=== PATIENT | male | born 1970 | race Caucasian/White ===

== ENCOUNTER 2017-09-17 09:24 | Inpatient (IN) ==
[2017-09-17] MEDS ORDERED: ONDANSETRON 4 MG/2 ML VIAL IV PRN ×2 (09:59→14:00)
[2017-09-17] MEDS ORDERED: ASPIRIN 325 MG TABLET PO STA (09:59)
[2017-09-17 10:27] LABS: Basophils % 0.5 % (0.0-0.8); Eosinophils # 0.1 10*3/uL (0.0-0.87); Eosinophils % 1.8 % (0.00-10.9); Hemoglobin 7.6 GM/DL (14.0-18.0); Immature Granulocytes % 0.7 %; Immature Granulocytes Absolute 0.03 #; Lymphocytes # 0.7 10*3/uL (1.4-4.0); Lymphocytes % 15.5 % (21.2-54.2); Mean Corpuscular HGB Conc 27.9 GM/DL (32-36); Mean Corpuscular Hemoglobin 24 PG (27-34); Mean Platelet Volume 12.4 FL (9.6-12.0); Monocytes # 0.4 10*3/uL (0.11-0.8); Monocytes % 8.5 % (1.7-12.7); Neutrophils # 3.2 10*3/uL (1.4-7.4); Platelet Count 104 T/CUMM (130-400); Red Blood Count 3.24 MC/CUMM (3.8-5.5); White Blood Count 4.3 T/CUMM (4-12)
[2017-09-17 10:29] LABS: Hematocrit 27.2 VOL% (42.0-52.0)
[2017-09-17 10:36] LABS: PT Patient Result 10.7 SECS; Partial Thromboplastin Time 22.9 SECS (0-40)
[2017-09-17 10:44] LABS: ABG Base Excess -3.6 MMOL/L (-2.5-2.5); ABG HCO3 21.3 MMOL/L (20-26); ABG Oxygen Saturation 96.2 % (95-100); ABG PCO2 30.8 MM HG (35-48); ABG PH 7.423 (7.35-7.45); ABG PO2 77.3 MM HG (80-95); ABG TCO2 18.9 MMOL/L (23-27)
[2017-09-17 10:45] LABS: Hypochromasia 1+
[2017-09-17 10:46] LABS: Giant Platelets Few; Microcytosis Slight; Platelet Estimate Decreased
[2017-09-17 10:53] LABS: Albumin 3.5 G/DL (3.4-5.0); Bilirubin,Total 1.6 MG/DL (0.2-1.0); Osmolality,Calculated 285.4 MOS/KG (273-304); Potassium 3.8 MMOL/L (3.5-5.1); Total Protein 6.5 G/DL (6.4-8.3)
[2017-09-17 11:00] LABS: Apearance,Urine CLEAR (Clear); Bacteria,Urine Occasional /HPF (Few); Bilirubin,Urine Negative (Negative); Blood, Urine Negative (Negative); Glucose,Urine (UA) 50 mg/dL (Negative); Ketones,Urine Negative (Negative); Nitrite,Urine Negative (Negative); Protein,Urine Negative; RBC,Urine <1 /HPF (0-4); Urine Color Yellow (Yellow); Urine Specific Gravity 1.003 (1.001-1.035); Urine Urobilinogen < 2.0 EU/DL (0.2-1.0)
[2017-09-17 11:08] LABS: Ferritin 5.9 ng/ml (26-388)
[2017-09-17 11:09] LABS: Barbiturates Screen,Urine Negative (Negative); Benzodiazepines Screen,Urine Negative (Negative); Cannabinoid Screen,Urine Negative (Negative); Opiate Screen,Urine Negative (Negative); Phencyclidine Screen,Urine Negative (Negative)
[2017-09-17 11:19] LABS: Folate 7.1 NG/ML (5.4-24.0)
[2017-09-17] MEDS ORDERED: FUROSEMIDE 40 MG/4 ML VIAL IV STA (11:55)
[2017-09-17] MEDS ORDERED: FUROSEMIDE 40 MG/4 ML VIAL ONE (12:42)
[2017-09-17] MEDS ORDERED: diphenhydrAMINE CAP 25 MG CAPSULE PO PRN (14:00)
[2017-09-17] MEDS ORDERED: SODIUM CHLORIDE 0.9% 1,000 ML IV PRN (14:10)
[2017-09-17] MEDS ORDERED: DEXTROSE 50% 25 GM/50 ML VIAL IV PRN (14:21)
[2017-09-17] MEDS ORDERED: GLUCAGON 1 MG VIAL IM PRN (14:21)
[2017-09-17 14:35] LABS: Risk Ratio 3.13; VLDL CHOLESTEROL 41.2 MG/DL
[2017-09-17] MEDS: PANTOPRAZOLE 40 MG TABLET PO SCH (14:41)
[2017-09-17] MEDS ORDERED: GABAPENTIN 300 MG CAPSULE PO PRN (17:17)
[2017-09-17] MEDS: INSULIN LISPRO 100 UNIT/ML SUBCUT SCH (17:32)
[2017-09-18 05:46] LABS: Basophils % 0.6 % (0.0-0.8); Eosinophils # 0.1 10*3/uL (0.0-0.87); Eosinophils % 3.5 % (0.00-10.9); Hematocrit 28.8 VOL% (42.0-52.0); Hemoglobin 8.6 GM/DL (14.0-18.0); Immature Granulocytes % 0.6 %; Immature Granulocytes Absolute 0.02 #; Lymphocytes # 0.6 10*3/uL (1.4-4.0); Lymphocytes % 20.3 % (21.2-54.2); Mean Corpuscular HGB Conc 29.9 GM/DL (32-36); Mean Corpuscular Hemoglobin 25 PG (27-34); Mean Corpuscular Volume 82.1 FL (87-102); Monocytes # 0.3 10*3/uL (0.11-0.8); Monocytes % 10.6 % (1.7-12.7); Neutrophils % 64.4 % (38.7-73.9); Platelet Count 74 T/CUMM (130-400); Red Blood Count 3.51 MC/CUMM (3.8-5.5); Red Cell Distribution Width 16.8 % (9.3-17.3); White Blood Count 3.1 T/CUMM (4-12)
[2017-09-18 05:56] LABS: Albumin 3.3 G/DL (3.4-5.0); Bilirubin,Total 1.4 MG/DL (0.2-1.0); Calcium 7.9 MG/DL (8.5-10.1); Magnesium 2.3 MG/DL (1.8-2.4); Osmolality,Calculated 280.3 MOS/KG (273-304); Potassium 3.7 MMOL/L (3.5-5.1); Total Protein 7.1 G/DL (6.4-8.3)
[2017-09-18 06:13] LABS: Albumin 3.2 G/DL (3.4-5.0); Bilirubin,Direct 0.42 MG/DL (0.0-0.20); Bilirubin,Indirect 1.1 MG/DL (0.0-1.0); Bilirubin,Total 1.5 MG/DL (0.2-1.0); Total Protein 6.3 G/DL (6.4-8.3)
[2017-09-18 06:14] LABS: Band Neutrophils 1 % (0-10); Eosinophils 5 % (0-10); Hypochromasia 2+; Lymphocytes 18 % (20-55); Microcytosis 1+; Ovalocytes Slight; Segmented Neutrophils 70 % (50-85); Stomatocytes Slight; Total Cells Counted 100
[2017-09-18 06:15] LABS: Platelet Estimate Decreased
[2017-09-18] MEDS: INSULIN LISPRO 100 UNIT/ML SUBCUT SCH ×2 (08:21→16:57)
[2017-09-18] MEDS ORDERED: LIDOCAINE 2% 5 ML VIAL ONE (09:00)
[2017-09-18] MEDS ORDERED: PROPOFOL 200 MG/20 ML VIAL IV ONE (09:00)
[2017-09-18] MEDS: PANTOPRAZOLE 40 MG TABLET PO SCH ×2 (10:41→21:07)
[2017-09-18] MEDS: FERROUS SULFATE 325 MG TABLET PO SCH (21:07)
[2017-09-19 06:12] LABS: Eosinophils # 0.1 10*3/uL (0.0-0.87); Eosinophils % 2.4 % (0.00-10.9); Hematocrit 28.7 VOL% (42.0-52.0); Hemoglobin 8.5 GM/DL (14.0-18.0); Immature Granulocytes % 0.4 %; Immature Granulocytes Absolute 0.01 #; Lymphocytes # 0.5 10*3/uL (1.4-4.0); Lymphocytes % 18.1 % (21.2-54.2); Mean Corpuscular HGB Conc 29.6 GM/DL (32-36); Mean Corpuscular Hemoglobin 24 PG (27-34); Mean Corpuscular Volume 81.1 FL (87-102); Mean Platelet Volume 12.2 FL (9.6-12.0); Monocytes # 0.3 10*3/uL (0.11-0.8); Monocytes % 10.6 % (1.7-12.7); Neutrophils # 1.7 10*3/uL (1.4-7.4); Neutrophils % 68.5 % (38.7-73.9); Platelet Count 73 T/CUMM (130-400); Red Blood Count 3.54 MC/CUMM (3.8-5.5); Red Cell Distribution Width 16.7 % (9.3-17.3); White Blood Count 2.5 T/CUMM (4-12)
[2017-09-19 06:34] LABS: Elliptocytes Few; Hypochromasia 1+
[2017-09-19 06:47] LABS: % Iron Saturation 18.7 % (18-50); Ferritin 7.3 ng/ml (26-388)
[2017-09-19 06:55] LABS: Vitamin B12 534 PG/ML (211-911)
[2017-09-19 07:34] LABS: HIV Antigen/Antibody Result Nonreactive (Nonreactive)
[2017-09-19 07:37] LABS: Hepatitis A Ab IgM Quant 0.06 Index; Hepatitis A Ab IgM Result Negative (Negative); Hepatitis B Core IgM Quant 0.17 Index; Hepatitis B Core IgM Result Negative (Negative); Hepatitis B Surface Ag Quant < 0.10 Index; Hepatitis B Surface Ag Result Negative (Negative); Hepatitis C Virus Ab Quant 0.05 Index; Hepatitis C Virus Ab Result Negative (Negative)
[2017-09-19] MEDS: MORPHINE 2 MG/1 ML SYRINGE IV PRN ×3 (08:24→22:06)
[2017-09-19] MEDS: INSULIN LISPRO 100 UNIT/ML SUBCUT SCH ×2 (08:30→16:44)
[2017-09-19 08:52] LABS: Sedimentation Rate-Westergren 11 MM/HR (0-15)
[2017-09-19 09:23] LABS: Hemoglobin A1 (Alkaline) 97.4 % (96.5-98.5); Hemoglobin A2 (Alkaline) 2.6 % (1.5-3.5)
[2017-09-19] MEDS: FERROUS SULFATE 325 MG TABLET PO SCH ×3 (13:05→22:05)
[2017-09-19] MEDS: PANTOPRAZOLE 40 MG TABLET PO SCH ×2 (13:05→22:06)
[2017-09-20] MEDS: MORPHINE 2 MG/1 ML SYRINGE IV PRN (04:50)
[2017-09-20] MEDS ORDERED: ALUM/MAG/SIMETH/LIDO VISC 1:1 30 ML BOTTLE PO ONE (04:57)
[2017-09-20 08:26] VITALS: BP 155/89
[2017-09-20] MEDS: INSULIN LISPRO 100 UNIT/ML SUBCUT SCH (08:33)
[2017-09-20] MEDS: FERROUS SULFATE 325 MG TABLET PO SCH (08:36)
[2017-09-20] MEDS: PANTOPRAZOLE 40 MG TABLET PO SCH (08:37)
[2017-09-20 11:16] LABS: EBV Nuclear Ag Antibody Positive (Negative); EBV Virus IgG Ab Positive (Negative); EBV Virus IgM Ab Negative (Negative)
[2017-09-21 17:21] LABS: Parvovirus B19 By Rapid PCR Negative; Source PLASMA
== END 2017-09-20 11:25 | disposition home or self-care (01) | DRG 812 ==
LOC: N.ED 09:24 → SUATTDRO 14:00 → N.EDINP 14:00 → N.3E 15:10
PROVIDERS: ADMIT Family Medicine; ATTEND Family Medicine

== ENCOUNTER 2018-01-22 11:27 | Inpatient (IN) ==
[2018-01-22] MEDS ORDERED: LACTATED RINGERS 1,000 ML IV STA (11:47)
[2018-01-22] MEDS ORDERED: DIPH/TET/ACEL PERT BOOSTER VACCINE 0.5 ML VIAL IM ONE (11:47)
[2018-01-22] MEDS ORDERED: cefTRIAXone 1,000 MG in SODIUM CHLORIDE 0.9% 100 ML IV STA (11:47)
[2018-01-22] MEDS ORDERED: fentaNYL 100 MCG/2 ML VIAL IV STA ×2 (11:47→14:35)
[2018-01-22] MEDS ORDERED: ONDANSETRON 4 MG/2 ML VIAL IV STA (11:47)
[2018-01-22 13:03] LABS: Basophils % 0.5 % (0.0-0.8); Eosinophils # 0.1 10*3/uL (0.0-0.87); Eosinophils % 1.9 % (0.00-10.9); Hematocrit 34.5 VOL% (42.0-52.0); Hemoglobin 10.4 GM/DL (14.0-18.0); Immature Granulocytes % 0.5 %; Immature Granulocytes Absolute 0.02 #; Lymphocytes # 0.7 10*3/uL (1.4-4.0); Lymphocytes % 18.5 % (21.2-54.2); Mean Corpuscular HGB Conc 30.1 GM/DL (32-36); Mean Corpuscular Hemoglobin 25 PG (27-34); Mean Corpuscular Volume 82.5 FL (87-102); Mean Platelet Volume 13.4 FL (9.6-12.0); Monocytes # 0.3 10*3/uL (0.11-0.8); Monocytes % 7.3 % (1.7-12.7); Neutrophils # 2.7 10*3/uL (1.4-7.4); Neutrophils % 71.3 % (38.7-73.9); Platelet Count 86 T/CUMM (130-400); Red Blood Count 4.18 MC/CUMM (3.8-5.5); Red Cell Distribution Width 15.3 % (9.3-17.3); White Blood Count 3.7 T/CUMM (4-12)
[2018-01-22 13:13] LABS: Partial Thromboplastin Time 24.7 SECS (0-40)
[2018-01-22 13:15] LABS: Albumin 3.6 G/DL (3.4-5.0); Calcium 7.9 MG/DL (8.5-10.1); Osmolality,Calculated 279.5 MOS/KG (273-304); Potassium 3.5 MMOL/L (3.5-5.1)
[2018-01-22] MEDS ORDERED: LORazepam 2 MG/1 ML VIAL IV STA (13:24)
[2018-01-22 14:01] LABS: Giant Platelets Few
[2018-01-22 14:02] LABS: Platelet Estimate Decreased
[2018-01-22] MEDS ORDERED: SILVER SULFADIAZINE 1% CREAM 25 GM TUBE TOP STA (14:34)
[2018-01-22 15:14] LABS: Apearance,Urine CLEAR (Clear); Bilirubin,Urine Negative (Negative); Blood, Urine Negative (Negative); Glucose,Urine (UA) Negative (Negative); Ketones,Urine Negative (Negative); Mucus,Urine Occasional /LPF (Occasional); Nitrite,Urine Negative (Negative); Protein,Urine Negative; RBC,Urine 12 /HPF (0-4); Urine Color Yellow (Yellow); Urine Urobilinogen < 2.0 EU/DL (0.2-1.0); WBC,Urine <1 /HPF (0-6)
[2018-01-22 15:32] LABS: Lactic Acid 1.4 MMOL/L (0.4-2.0)
[2018-01-22] MEDS ORDERED: KETOROLAC 30 MG/1 ML VIAL IV PRN (16:55)
[2018-01-22] MEDS ORDERED: MORPHINE 4 MG/1 ML VIAL IV STA (16:55)
[2018-01-22] MEDS ORDERED: ACETAMINOPHEN 325 MG TABLET PO PRN (17:35)
[2018-01-22] MEDS ORDERED: ONDANSETRON 4 MG/2 ML VIAL IV PRN (17:35)
[2018-01-22] MEDS: LACTATED RINGERS 1,000 ML IV SCH (18:15)
[2018-01-22] MEDS: MORPHINE 4 MG/1 ML VIAL IV PRN (20:32)
[2018-01-22] MEDS: DOCUSATE SODIUM 100 MG CAPSULE PO SCH (20:34)
[2018-01-23] MEDS: MORPHINE 4 MG/1 ML VIAL IV PRN ×5 (00:49→20:33)
[2018-01-23] MEDS: LACTATED RINGERS 1,000 ML IV SCH (02:40)
[2018-01-23 05:31] LABS: Basophils % 0.6 % (0.0-0.8); Eosinophils # 0.1 10*3/uL (0.0-0.87); Eosinophils % 3.5 % (0.00-10.9); Hematocrit 29.9 VOL% (42.0-52.0); Hemoglobin 8.7 GM/DL (14.0-18.0); Immature Granulocytes % 0.3 %; Immature Granulocytes Absolute 0.01 #; Lymphocytes # 0.5 10*3/uL (1.4-4.0); Lymphocytes % 14.5 % (21.2-54.2); Mean Corpuscular HGB Conc 29.1 GM/DL (32-36); Mean Corpuscular Hemoglobin 24 PG (27-34); Mean Platelet Volume 12.6 FL (9.6-12.0); Monocytes # 0.4 10*3/uL (0.11-0.8); Monocytes % 12.3 % (1.7-12.7); Neutrophils # 2.1 10*3/uL (1.4-7.4); Neutrophils % 68.8 % (38.7-73.9); Platelet Count 66 T/CUMM (130-400); Red Blood Count 3.56 MC/CUMM (3.8-5.5); Red Cell Distribution Width 15.1 % (9.3-17.3); White Blood Count 3.1 T/CUMM (4-12)
[2018-01-23 05:59] LABS: Hypochromasia 1+; Ovalocytes Slight; Platelet Estimate Decreased
[2018-01-23 06:03] LABS: Osmolality,Calculated 280.3 MOS/KG (273-304); Potassium 3.6 MMOL/L (3.5-5.1)
[2018-01-23] MEDS: DOCUSATE SODIUM 100 MG CAPSULE PO SCH ×2 (10:04→20:39)
[2018-01-23] MEDS: PANTOPRAZOLE 40 MG TABLET PO SCH (10:04)
[2018-01-23] MEDS ORDERED: TAMSULOSIN 0.4 MG CAPSULE PO SCH (21:00)
[2018-01-24] MEDS: MORPHINE 4 MG/1 ML VIAL IV PRN ×3 (00:55→13:01)
[2018-01-24 04:43] LABS: Basophils % 0.5 % (0.0-0.8); Eosinophils # 0.1 10*3/uL (0.0-0.87); Eosinophils % 3.2 % (0.00-10.9); Hematocrit 32.6 VOL% (42.0-52.0); Hemoglobin 9.8 GM/DL (14.0-18.0); Immature Granulocytes % 0.5 %; Immature Granulocytes Absolute 0.02 #; Lymphocytes # 0.9 10*3/uL (1.4-4.0); Mean Corpuscular HGB Conc 30.1 GM/DL (32-36); Mean Corpuscular Hemoglobin 25 PG (27-34); Mean Corpuscular Volume 82.5 FL (87-102); Mean Platelet Volume 12.9 FL (9.6-12.0); Monocytes # 0.4 10*3/uL (0.11-0.8); Monocytes % 9.8 % (1.7-12.7); Neutrophils # 2.6 10*3/uL (1.4-7.4); Red Blood Count 3.95 MC/CUMM (3.8-5.5); Red Cell Distribution Width 15.2 % (9.3-17.3); White Blood Count 4.1 T/CUMM (4-12)
[2018-01-24 04:45] LABS: Platelet Count 84 T/CUMM (130-400)
[2018-01-24 05:08] LABS: Platelet Estimate Adequate; Polychromasia Few
[2018-01-24 05:09] LABS: Microcytosis 1+
[2018-01-24] MEDS: DOCUSATE SODIUM 100 MG CAPSULE PO SCH (09:10)
[2018-01-24] MEDS: PANTOPRAZOLE 40 MG TABLET PO SCH (09:13)
[2018-01-24 12:07] VITALS: BP 135/80
[2018-01-24] MEDS ORDERED: SILVER SULFADIAZINE 1% CREAM 25 GM TUBE TOP SCH (13:30)
== END 2018-01-24 13:55 | disposition home health service (06) | DRG 605 ==
LOC: EDUNIT# → EDBD → N.EDINP 11:27 → N.ED 11:27 → N.3E 17:20
PROVIDERS: ADMIT Surgery; ATTEND Surgery

== ENCOUNTER 2018-03-28 11:22 | Inpatient (IN) ==
[2018-03-28 12:01] LABS: Basophils % 0.6 % (0.0-0.8); Eosinophils # 0.1 10*3/uL (0.0-0.87); Eosinophils % 1.8 % (0.00-10.9); Hematocrit 22.3 VOL% (42.0-52.0); Hemoglobin 6.6 GM/DL (14.0-18.0); Immature Granulocytes % 0.6 %; Immature Granulocytes Absolute 0.03 #; Lymphocytes # 0.8 10*3/uL (1.4-4.0); Lymphocytes % 16.5 % (21.2-54.2); Mean Corpuscular HGB Conc 29.6 GM/DL (32-36); Mean Corpuscular Hemoglobin 25 PG (27-34); Mean Corpuscular Volume 85.8 FL (87-102); Mean Platelet Volume 12.9 FL (9.6-12.0); Monocytes # 0.5 10*3/uL (0.11-0.8); Monocytes % 9.7 % (1.7-12.7); Neutrophils # 3.5 10*3/uL (1.4-7.4); Neutrophils % 70.8 % (38.7-73.9)
[2018-03-28 12:12] LABS: Platelet Count 88 T/CUMM (130-400)
[2018-03-28] MEDS ORDERED: SODIUM CHLORIDE 0.9% 1,000 ML IV STA (12:14)
[2018-03-28 12:16] LABS: PT Patient Result 10.8 SECS
[2018-03-28 12:20] LABS: Albumin 2.7 G/DL (3.4-5.0); Bilirubin,Total 1.4 MG/DL (0.2-1.0); Osmolality,Calculated 280.5 MOS/KG (273-304); Potassium 3.4 MMOL/L (3.5-5.1); Total Protein 5.9 G/DL (6.4-8.3)
[2018-03-28 12:37] LABS: Anisocytosis 1+; Hypochromasia 1+; Microcytosis 1+; Ovalocytes Slight; Platelet Estimate Decreased; Polychromasia Slight
[2018-03-28] MEDS ORDERED: SODIUM CHLORIDE 0.9% 1,000 ML IV PRN ×2 (12:45→15:13)
[2018-03-28] MEDS ORDERED: ONDANSETRON 4 MG/2 ML VIAL IV PRN (13:28)
[2018-03-28] MEDS ORDERED: diphenhydrAMINE CAP 25 MG CAPSULE PO PRN (13:28)
[2018-03-29] MEDS: MORPHINE 4 MG/1 ML VIAL IV PRN ×2 (00:54→06:00)
[2018-03-29] MEDS: SODIUM CHLORIDE 0.9% 1,000 ML IV SCH ×2 (06:43→07:28)
[2018-03-29 07:41] VITALS: BP 120/82
[2018-03-29 08:00] LABS: Basophils % 0.5 % (0.0-0.8); Hematocrit 24.1 VOL% (42.0-52.0); Hemoglobin 7.2 GM/DL (14.0-18.0); Immature Granulocytes % 0.5 %; Immature Granulocytes Absolute 0.01 #; Lymphocytes # 0.5 10*3/uL (1.4-4.0); Lymphocytes % 23.4 % (21.2-54.2); Mean Corpuscular HGB Conc 29.9 GM/DL (32-36); Mean Corpuscular Hemoglobin 26 PG (27-34); Mean Corpuscular Volume 85.5 FL (87-102); Mean Platelet Volume 13.2 FL (9.6-12.0); Monocytes # 0.2 10*3/uL (0.11-0.8); Monocytes % 10.2 % (1.7-12.7); Neutrophils # 1.3 10*3/uL (1.4-7.4); Neutrophils % 63.4 % (38.7-73.9); Red Blood Count 2.82 MC/CUMM (3.8-5.5); Red Cell Distribution Width 18.6 % (9.3-17.3)
[2018-03-29 08:07] LABS: Platelet Count 60 T/CUMM (130-400)
[2018-03-29 08:20] LABS: Albumin 2.6 G/DL (3.4-5.0); Bilirubin,Total 1.7 MG/DL (0.2-1.0); Calcium 7.2 MG/DL (8.5-10.1); Osmolality,Calculated 279.4 MOS/KG (273-304); Potassium 3.4 MMOL/L (3.5-5.1); Total Protein 5.7 G/DL (6.4-8.3)
[2018-03-29 09:05] LABS: Eosinophils 2 % (0-10); Hypochromasia 1+; Lymphocytes 22 % (20-55); Microcytosis 1+; Segmented Neutrophils 68 % (50-85); Total Cells Counted 100
[2018-03-29 09:06] LABS: Platelet Estimate Decreased; Polychromasia Slight; Stomatocytes Slight
[2018-03-29 09:07] LABS: Anisocytosis 1+
== END 2018-03-29 10:17 | disposition home or self-care (01) | DRG 394 ==
LOC: N.ED 11:22 → N.EDINP 13:28 → N.2E 14:39
PROVIDERS: ADMIT Hospitalist; ATTEND Hospitalist

== ENCOUNTER 2018-11-10 04:05 | Inpatient (IN) ==
[2018-11-10 05:22] LABS: Albumin 2.9 G/DL (3.4-5.0); Bilirubin,Total 1.3 MG/DL (0.2-1.0); Calcium 7.5 MG/DL (8.5-10.1); Osmolality,Calculated 282.5 MOS/KG (273-304); Potassium 3.4 MMOL/L (3.5-5.1); Total Protein 6.8 G/DL (6.4-8.3)
[2018-11-10] MEDS ORDERED: SODIUM CHLORIDE 0.9% 1,000 ML IV STA (05:40)
[2018-11-10 05:54] LABS: Apearance,Urine CLEAR (Clear); Bilirubin,Urine Negative (Negative); Blood, Urine Negative (Negative); Glucose,Urine (UA) 150 mg/dL (Negative); Ketones,Urine Negative (Negative); Nitrite,Urine Negative (Negative); Protein,Urine Negative; RBC,Urine <1 /HPF (0-4); Urine Color Yellow (Yellow); Urine Specific Gravity 1.004 (1.001-1.035); Urine Urobilinogen < 2.0 EU/DL (0.2-1.0); WBC,Urine <1 /HPF (0-6)
[2018-11-10 05:57] LABS: Basophils % 0.4 % (0.0-0.8); Eosinophils # 0.1 10*3/uL (0.0-0.87); Eosinophils % 3.1 % (0.00-10.9); Hemoglobin 6.5 GM/DL (14.0-18.0); Immature Granulocytes % 0.7 %; Immature Granulocytes Absolute 0.03 #; Lymphocytes % 22.2 % (21.2-54.2); Mean Corpuscular HGB Conc 27.1 GM/DL (32-36); Mean Corpuscular Hemoglobin 21 PG (27-34); Mean Corpuscular Volume 78.2 FL (87-102); Monocytes # 0.5 10*3/uL (0.11-0.8); Monocytes % 10.2 % (1.7-12.7); Neutrophils # 2.9 10*3/uL (1.4-7.4); Neutrophils % 63.4 % (38.7-73.9); Platelet Count 79 T/CUMM (130-400); Red Blood Count 3.07 MC/CUMM (3.8-5.5); White Blood Count 4.5 T/CUMM (4-12)
[2018-11-10 06:03] LABS: Hypochromasia 1+; Microcytosis 1+; Ovalocytes Slight; Platelet Estimate Decreased
[2018-11-10] MEDS ORDERED: ONDANSETRON 4 MG/2 ML VIAL ONE (06:32)
[2018-11-10] MEDS ORDERED: HYDROmorphone 2 MG/1 ML VIAL ONE (06:32)
[2018-11-10] MEDS ORDERED: HYDROmorphone 2 MG/1 ML VIAL IV STA (06:37)
[2018-11-10] MEDS ORDERED: ONDANSETRON 4 MG/2 ML VIAL IV STA (06:38)
[2018-11-10 07:01] LABS: INR 1.1; PT Patient Result 11.4 SECS; Partial Thromboplastin Time 22.6 SECS (0-40)
[2018-11-10] MEDS ORDERED: DOCUSATE SODIUM 100 MG CAPSULE PO PRN (07:33)
[2018-11-10] MEDS ORDERED: SODIUM CHLORIDE 0.9% 1,000 ML IV PRN ×2 (07:37→21:02)
[2018-11-10] MEDS: ONDANSETRON 4 MG/2 ML VIAL IV PRN ×2 (07:58→14:43)
[2018-11-10 08:24] LABS: Risk Ratio 3.93; Thyroid Stimulating Hormone 3.47 uIU/ml (0.358-3.74); VLDL CHOLESTEROL 38.8 MG/DL
[2018-11-10] MEDS: MORPHINE 4 MG/1 ML VIAL IV PRN ×3 (12:14→21:08)
[2018-11-10] MEDS: PANTOPRAZOLE 40 MG TABLET PO SCH (14:51)
[2018-11-10 15:18] LABS: Apearance,Urine CLEAR (Clear); Bilirubin,Urine Negative (Negative); Blood, Urine Negative (Negative); Glucose,Urine (UA) Negative (Negative); Ketones,Urine Negative (Negative); Nitrite,Urine Negative (Negative); Protein,Urine Negative; RBC,Urine 1 /HPF (0-4); Squamous Epithelial Cell,Urine Occasional /HPF (0-10); Urine Color Yellow (Yellow); Urine Specific Gravity > 1.060 (1.001-1.035); Urine Urobilinogen < 2.0 EU/DL (0.2-1.0); WBC,Urine <1 /HPF (0-6)
[2018-11-10] MEDS ORDERED: POLYETHYLENE GLYCOL POWDER 255 GM BOTTLE PO ONE (18:00)
[2018-11-10 20:33] LABS: Basophils % 0.3 % (0.0-0.8); Eosinophils # 0.1 10*3/uL (0.0-0.87); Eosinophils % 3.7 % (0.00-10.9); Hematocrit 20.7 VOL% (42.0-52.0); Immature Granulocytes % 0.3 %; Immature Granulocytes Absolute 0.01 #; Lymphocytes # 0.7 10*3/uL (1.4-4.0); Lymphocytes % 22.1 % (21.2-54.2); Mean Corpuscular HGB Conc 28.5 GM/DL (32-36); Mean Corpuscular Hemoglobin 23 PG (27-34); Mean Corpuscular Volume 80.9 FL (87-102); Monocytes # 0.3 10*3/uL (0.11-0.8); Monocytes % 11.4 % (1.7-12.7); Neutrophils # 1.9 10*3/uL (1.4-7.4); Neutrophils % 62.2 % (38.7-73.9); Platelet Count 54 T/CUMM (130-400); Red Blood Count 2.56 MC/CUMM (3.8-5.5); Red Cell Distribution Width 19.1 % (9.3-17.3)
[2018-11-10 20:48] LABS: Hemoglobin 5.9 GM/DL (14.0-18.0)
[2018-11-10 20:57] LABS: Hypochromasia 2+; Poikilocytosis 1+; Stomatocytes Few
[2018-11-10 20:58] LABS: Anisocytosis 1+; Platelet Estimate Decreased
[2018-11-11] MEDS: MORPHINE 4 MG/1 ML VIAL IV PRN ×5 (02:09→20:45)
[2018-11-11 05:42] LABS: Basophils % 0.9 % (0.0-0.8); Eosinophils # 0.1 10*3/uL (0.0-0.87); Eosinophils % 4.8 % (0.00-10.9); Hematocrit 23.6 VOL% (42.0-52.0); Hemoglobin 7.1 GM/DL (14.0-18.0); Immature Granulocytes % 0.9 %; Immature Granulocytes Absolute 0.02 #; Lymphocytes # 0.6 10*3/uL (1.4-4.0); Lymphocytes % 27.3 % (21.2-54.2); Mean Corpuscular HGB Conc 30.1 GM/DL (32-36); Mean Corpuscular Hemoglobin 25 PG (27-34); Mean Corpuscular Volume 81.4 FL (87-102); Monocytes # 0.2 10*3/uL (0.11-0.8); Monocytes % 10.6 % (1.7-12.7); Neutrophils # 1.3 10*3/uL (1.4-7.4); Neutrophils % 55.5 % (38.7-73.9); Platelet Count 45 T/CUMM (130-400); Red Cell Distribution Width 18.1 % (9.3-17.3); White Blood Count 2.3 T/CUMM (4-12)
[2018-11-11 05:58] LABS: Albumin 2.4 G/DL (3.4-5.0); Bilirubin,Total 1.8 MG/DL (0.2-1.0); Calcium 7.2 MG/DL (8.5-10.1); Osmolality,Calculated 279.4 MOS/KG (273-304); Potassium 3.6 MMOL/L (3.5-5.1); Total Protein 5.6 G/DL (6.4-8.3)
[2018-11-11 06:20] LABS: Eosinophils 3 % (0-10); Hypochromasia 2+; Lymphocytes 24 % (20-55); Microcytosis Slight; Ovalocytes Slight; Platelet Estimate Decreased; Segmented Neutrophils 65 % (50-85); Total Cells Counted 100
[2018-11-11] MEDS: PANTOPRAZOLE 40 MG TABLET PO SCH (10:18)
[2018-11-11] MEDS: PROPRANOLOL 10 MG TABLET PO SCH ×2 (11:50→20:46)
[2018-11-11] MEDS ORDERED: LIDOCAINE 2% 5 ML VIAL ONE (12:20)
[2018-11-11] MEDS ORDERED: PROPOFOL 200 MG/20 ML VIAL IV ONE (12:20)
[2018-11-11] MEDS ORDERED: LACTATED RINGERS 500 ML IV ONE (15:05)
[2018-11-11] MEDS ORDERED: DEXTROSE 50% 25 GM/50 ML SYRINGE IV PRN (15:09)
[2018-11-11] MEDS ORDERED: GLUCAGON 1 MG VIAL IM PRN (15:09)
[2018-11-11] MEDS ORDERED: hydrOXYzine HCL 25 MG TABLET PO SCH (18:00)
[2018-11-11] MEDS: hydrOXYzine HCL 25 MG TABLET PO PRN (18:12)
[2018-11-12] MEDS: hydrOXYzine HCL 25 MG TABLET PO PRN ×4 (00:34→22:38)
[2018-11-12] MEDS: MORPHINE 4 MG/1 ML VIAL IV PRN ×5 (00:43→20:46)
[2018-11-12 05:26] LABS: Basophils % 0.5 % (0.0-0.8); Eosinophils # 0.1 10*3/uL (0.0-0.87); Eosinophils % 3.5 % (0.00-10.9); Hematocrit 23.1 VOL% (42.0-52.0); Hemoglobin 6.7 GM/DL (14.0-18.0); Lymphocytes # 0.5 10*3/uL (1.4-4.0); Lymphocytes % 25.9 % (21.2-54.2); Mean Corpuscular Hemoglobin 24 PG (27-34); Mean Corpuscular Volume 82.5 FL (87-102); Monocytes # 0.2 10*3/uL (0.11-0.8); Neutrophils # 1.2 10*3/uL (1.4-7.4); Neutrophils % 60.1 % (38.7-73.9); Platelet Count 42 T/CUMM (130-400); Red Cell Distribution Width 18.8 % (9.3-17.3)
[2018-11-12 05:37] LABS: Albumin 2.6 G/DL (3.4-5.0); Calcium 6.9 MG/DL (8.5-10.1); Osmolality,Calculated 278.4 MOS/KG (273-304); Potassium 3.9 MMOL/L (3.5-5.1); Total Protein 5.5 G/DL (6.4-8.3)
[2018-11-12 06:42] LABS: Eosinophils 1 % (0-10); Lymphocytes 28 % (20-55); Segmented Neutrophils 64 % (50-85); Total Cells Counted 100
[2018-11-12 06:43] LABS: Anisocytosis 1+; Hypochromasia 2+; Platelet Estimate Decreased; Tear Drop Cells Few
[2018-11-12] MEDS ORDERED: LEVOFLOXACIN INJ 500 MG in PREMIX 1 EACH IV ONE (08:00)
[2018-11-12] MEDS: PANTOPRAZOLE 40 MG TABLET PO SCH (10:02)
[2018-11-12] MEDS: PROPRANOLOL 10 MG TABLET PO SCH (10:02)
[2018-11-12] MEDS ORDERED: SODIUM CHLORIDE 0.9% 1,000 ML IV PRN ×2 (10:28→11:27)
[2018-11-13] MEDS: MORPHINE 4 MG/1 ML VIAL IV PRN ×5 (00:45→22:23)
[2018-11-13] MEDS: hydrOXYzine HCL 25 MG TABLET PO PRN ×2 (04:49→22:25)
[2018-11-13 04:51] LABS: Basophils % 0.6 % (0.0-0.8); Eosinophils # 0.1 10*3/uL (0.0-0.87); Eosinophils % 2.9 % (0.00-10.9); Hematocrit 24.1 VOL% (42.0-52.0); Hemoglobin 7.1 GM/DL (14.0-18.0); Lymphocytes # 0.5 10*3/uL (1.4-4.0); Lymphocytes % 27.7 % (21.2-54.2); Mean Corpuscular HGB Conc 29.5 GM/DL (32-36); Mean Corpuscular Hemoglobin 25 PG (27-34); Mean Corpuscular Volume 83.1 FL (87-102); Monocytes # 0.2 10*3/uL (0.11-0.8); Monocytes % 9.8 % (1.7-12.7); Red Cell Distribution Width 19.4 % (9.3-17.3); White Blood Count 1.7 T/CUMM (4-12)
[2018-11-13 04:59] LABS: Albumin 2.8 G/DL (3.4-5.0); Bilirubin,Total 1.4 MG/DL (0.2-1.0); Calcium 7.3 MG/DL (8.5-10.1); Osmolality,Calculated 275.5 MOS/KG (273-304); Potassium 3.9 MMOL/L (3.5-5.1)
[2018-11-13 05:02] LABS: Platelet Count 48 T/CUMM (130-400)
[2018-11-13 05:08] LABS: % Iron Saturation 5.4 % (18-50); Ferritin 6.3 ng/ml (26-388)
[2018-11-13 06:00] LABS: Hypochromasia 1+; Platelet Estimate Decreased
[2018-11-13 06:01] LABS: Polychromasia Few
[2018-11-13] MEDS ORDERED: SODIUM CHLORIDE 0.9% 1,000 ML IV PRN (07:45)
[2018-11-13] MEDS ORDERED: HEPARIN/NACL 0.9% 2 UNITS/ML 500 ML IV ONE (07:57)
[2018-11-13] MEDS ORDERED: CALCIUM CHLORIDE 1,000 MG/10 ML VIAL IV ONE (07:57)
[2018-11-13] MEDS ORDERED: ALBUMIN 5% 12.5 GM/250 ML VIAL IV ONE (07:58)
[2018-11-13] MEDS ORDERED: NOREPINEPHRINE 4 MG/4 ML VIAL IV ONE (07:58)
[2018-11-13] MEDS: PANTOPRAZOLE 40 MG TABLET PO SCH (09:10)
[2018-11-13] MEDS ORDERED: HEPARIN 5,000 UNIT/1 ML VIAL ONE (10:00)
[2018-11-13] MEDS ORDERED: HYDROmorphone 2 MG/1 ML VIAL ONE (15:15)
[2018-11-13] MEDS: HYDROmorphone 2 MG/1 ML VIAL IV PRN ×4 (15:20→15:35)
[2018-11-13] MEDS ORDERED: MIDAZOLAM 2 MG/2 ML VIAL ONE (15:31)
[2018-11-13] MEDS ORDERED: ONDANSETRON 4 MG/2 ML VIAL IV PRN (15:31)
[2018-11-13] MEDS ORDERED: SEVOFLURANE 1 UNIT/15 MINUTE INH ONE (15:31)
[2018-11-13] MEDS ORDERED: GLYCOPYRROLATE 0.4 MG/2 ML VIAL ONE (15:32)
[2018-11-13] MEDS ORDERED: PHENYLEPHRINE 10 MG/1 ML VIAL IV ONE (15:32)
[2018-11-13] MEDS ORDERED: ONDANSETRON 4 MG/2 ML VIAL ONE (15:32)
[2018-11-13] MEDS ORDERED: ETOMIDATE 40 MG/20 ML VIAL IV ONE (15:32)
[2018-11-13] MEDS ORDERED: fentaNYL 100 MCG/2 ML VIAL ONE ×2 (15:32)
[2018-11-13] MEDS ORDERED: PHENYLEPHRINE 1 MG/10 ML SYRINGE IV ONE (15:33)
[2018-11-13] MEDS ORDERED: SODIUM CHLORIDE 0.9% 1,000 ML IV ONE (15:34)
[2018-11-13] MEDS ORDERED: NEOSTIGMINE 10 MG/10 ML VIAL ONE (15:34)
[2018-11-13] MEDS ORDERED: ROCURONIUM 100 MG/10 ML VIAL IV ONE (15:34)
[2018-11-13 16:13] LABS: Apearance,Urine CLEAR (Clear); Bilirubin,Urine Negative (Negative); Blood, Urine Small mg/dL (Negative); Glucose,Urine (UA) Negative (Negative); Ketones,Urine Negative (Negative); Mucus,Urine Occasional /LPF (Occasional); Nitrite,Urine Negative (Negative); Protein,Urine Negative; RBC,Urine 1 /HPF (0-4); Squamous Epithelial Cell,Urine Occasional /HPF (0-10); Urine Color Yellow (Yellow); Urine Specific Gravity > 1.060 (1.001-1.035); Urine Urobilinogen < 2.0 EU/DL (0.2-1.0); WBC,Urine <1 /HPF (0-6)
[2018-11-13] MEDS ORDERED: HYDROmorphone 2 MG/1 ML VIAL IV ONE (18:46)
[2018-11-13 19:18] LABS: Hematocrit 26.6 VOL% (42.0-52.0); Hemoglobin 7.7 GM/DL (14.0-18.0)
[2018-11-14] MEDS: MORPHINE 4 MG/1 ML VIAL IV PRN ×5 (04:22→22:35)
[2018-11-14 05:56] LABS: Basophils % 0.4 % (0.0-0.8); Eosinophils % 1.7 % (0.00-10.9); Hematocrit 26.6 VOL% (42.0-52.0); Hemoglobin 7.8 GM/DL (14.0-18.0); Immature Granulocytes % 0.4 %; Immature Granulocytes Absolute 0.01 #; Lymphocytes # 0.3 10*3/uL (1.4-4.0); Lymphocytes % 12.9 % (21.2-54.2); Mean Corpuscular HGB Conc 29.3 GM/DL (32-36); Mean Corpuscular Hemoglobin 25 PG (27-34); Mean Corpuscular Volume 83.9 FL (87-102); Monocytes # 0.3 10*3/uL (0.11-0.8); Monocytes % 10.4 % (1.7-12.7); Neutrophils # 1.8 10*3/uL (1.4-7.4); Neutrophils % 74.2 % (38.7-73.9); Red Blood Count 3.17 MC/CUMM (3.8-5.5); Red Cell Distribution Width 19.2 % (9.3-17.3); White Blood Count 2.4 T/CUMM (4-12)
[2018-11-14 05:57] LABS: Platelet Count 49 T/CUMM (130-400)
[2018-11-14 06:12] LABS: Albumin 2.8 G/DL (3.4-5.0); Bilirubin,Total 6.2 MG/DL (0.2-1.0); Calcium 7.4 MG/DL (8.5-10.1); Potassium 3.9 MMOL/L (3.5-5.1); Total Protein 5.8 G/DL (6.4-8.3)
[2018-11-14 06:32] LABS: Anisocytosis 2+; Hypochromasia 2+; Macrocytosis Slight; Microcytosis 1+; Ovalocytes 1+; Platelet Estimate Decreased; Target Cells 2+
[2018-11-14] MEDS ORDERED: IRON DEXTRAN 25 MG in SYRINGE 1 EACH IV ONE (08:45)
[2018-11-14] MEDS ORDERED: IRON DEXTRAN 2,000 MG in SODIUM CHLORIDE 0.9% 500 ML IV ONE (08:46)
[2018-11-14] MEDS ORDERED: diphenhydrAMINE 50 MG/1 ML VIAL IV ONE (08:48)
[2018-11-14] MEDS ORDERED: ACETAMINOPHEN 325 MG/10.15 ML UDCUP PO ONE (08:48)
[2018-11-14] MEDS: PANTOPRAZOLE 40 MG TABLET PO SCH (09:34)
[2018-11-14] MEDS: hydrOXYzine HCL 25 MG TABLET PO PRN (22:39)
[2018-11-15] MEDS: MORPHINE 4 MG/1 ML VIAL IV PRN ×6 (02:57→21:07)
[2018-11-15 05:39] LABS: Basophils % 0.5 % (0.0-0.8); Eosinophils # 0.1 10*3/uL (0.0-0.87); Eosinophils % 2.3 % (0.00-10.9); Hematocrit 26.5 VOL% (42.0-52.0); Hemoglobin 7.9 GM/DL (14.0-18.0); Immature Granulocytes % 0.5 %; Immature Granulocytes Absolute 0.01 #; Lymphocytes # 0.4 10*3/uL (1.4-4.0); Lymphocytes % 19.4 % (21.2-54.2); Mean Corpuscular HGB Conc 29.8 GM/DL (32-36); Mean Corpuscular Hemoglobin 25 PG (27-34); Mean Corpuscular Volume 84.7 FL (87-102); Monocytes # 0.2 10*3/uL (0.11-0.8); Monocytes % 10.2 % (1.7-12.7); Neutrophils # 1.5 10*3/uL (1.4-7.4); Neutrophils % 67.1 % (38.7-73.9); Red Blood Count 3.13 MC/CUMM (3.8-5.5); White Blood Count 2.2 T/CUMM (4-12)
[2018-11-15 05:41] LABS: Platelet Count 47 T/CUMM (130-400)
[2018-11-15 05:58] LABS: Hypochromasia 1+; Ovalocytes Slight
[2018-11-15 05:59] LABS: Microcytosis 1+; Platelet Estimate Decreased
[2018-11-15 06:37] LABS: Albumin 2.9 G/DL (3.4-5.0); Bilirubin,Total 5.3 MG/DL (0.2-1.0); Calcium 7.8 MG/DL (8.5-10.1); Osmolality,Calculated 272.8 MOS/KG (273-304); Potassium 3.8 MMOL/L (3.5-5.1); Total Protein 6.1 G/DL (6.4-8.3)
[2018-11-15] MEDS: hydrOXYzine HCL 25 MG TABLET PO PRN ×2 (08:22→21:05)
[2018-11-15] MEDS: PANTOPRAZOLE 40 MG TABLET PO SCH (08:22)
[2018-11-16] MEDS: MORPHINE 4 MG/1 ML VIAL IV PRN ×6 (01:16→20:23)
[2018-11-16 05:27] LABS: Basophils % 0.5 % (0.0-0.8); Eosinophils # 0.1 10*3/uL (0.0-0.87); Eosinophils % 3.7 % (0.00-10.9); Hematocrit 28.3 VOL% (42.0-52.0); Hemoglobin 8.4 GM/DL (14.0-18.0); Immature Granulocytes % 0.5 %; Immature Granulocytes Absolute 0.01 #; Lymphocytes # 0.5 10*3/uL (1.4-4.0); Lymphocytes % 20.5 % (21.2-54.2); Mean Corpuscular HGB Conc 29.7 GM/DL (32-36); Mean Corpuscular Hemoglobin 26 PG (27-34); Monocytes # 0.2 10*3/uL (0.11-0.8); Monocytes % 9.6 % (1.7-12.7); Neutrophils # 1.4 10*3/uL (1.4-7.4); Neutrophils % 65.2 % (38.7-73.9); Red Blood Count 3.29 MC/CUMM (3.8-5.5); Red Cell Distribution Width 20.2 % (9.3-17.3); White Blood Count 2.2 T/CUMM (4-12)
[2018-11-16] MEDS: hydrOXYzine HCL 25 MG TABLET PO PRN ×2 (05:30→15:57)
[2018-11-16 05:31] LABS: Platelet Count 57 T/CUMM (130-400)
[2018-11-16 05:48] LABS: Bilirubin,Total 3.8 MG/DL (0.2-1.0); Calcium 8.2 MG/DL (8.5-10.1); Potassium 3.9 MMOL/L (3.5-5.1); Total Protein 6.5 G/DL (6.4-8.3)
[2018-11-16 06:09] LABS: Hypochromasia 1+; Platelet Estimate Decreased; Polychromasia Few
[2018-11-16] MEDS: PANTOPRAZOLE 40 MG TABLET PO SCH (08:05)
[2018-11-16] MEDS ORDERED: DEXTROSE 50% 25 GM/50 ML SYRINGE IV PRN (10:32)
[2018-11-16] MEDS ORDERED: GLUCAGON 1 MG VIAL IM PRN (10:32)
[2018-11-17] MEDS: MORPHINE 4 MG/1 ML VIAL IV PRN ×10 (00:09→22:33)
[2018-11-17] MEDS: hydrOXYzine HCL 25 MG TABLET PO PRN ×4 (00:09→22:32)
[2018-11-17 05:26] LABS: Basophils % 0.5 % (0.0-0.8); Eosinophils # 0.1 10*3/uL (0.0-0.87); Hematocrit 29.1 VOL% (42.0-52.0); Hemoglobin 8.6 GM/DL (14.0-18.0); Lymphocytes # 0.4 10*3/uL (1.4-4.0); Mean Corpuscular HGB Conc 29.6 GM/DL (32-36); Mean Corpuscular Hemoglobin 25 PG (27-34); Mean Corpuscular Volume 85.8 FL (87-102); Monocytes # 0.2 10*3/uL (0.11-0.8); Monocytes % 9.5 % (1.7-12.7); Neutrophils # 1.4 10*3/uL (1.4-7.4); Platelet Count 54 T/CUMM (130-400); Red Blood Count 3.39 MC/CUMM (3.8-5.5); Red Cell Distribution Width 21.3 % (9.3-17.3)
[2018-11-17 06:04] LABS: Bilirubin,Direct 1.83 MG/DL (0.0-0.20); Bilirubin,Indirect 1.7 MG/DL (0.0-1.0); Bilirubin,Total 3.5 MG/DL (0.2-1.0); Calcium 8.5 MG/DL (8.5-10.1); Osmolality,Calculated 272.8 MOS/KG (273-304); Potassium 4.2 MMOL/L (3.5-5.1); Total Protein 6.8 G/DL (6.4-8.3)
[2018-11-17 06:15] LABS: Anisocytosis 1+; Hypochromasia Slight; Macrocytosis 1+; Microcytosis 1+; Platelet Estimate Decreased
[2018-11-17] MEDS: PANTOPRAZOLE 40 MG TABLET PO SCH (08:10)
[2018-11-17] MEDS ORDERED: PNEUMOCOCCAL VACCINE (23 VALENT) 0.5 ML VIAL IM ONE (16:41)
[2018-11-17] MEDS: SODIUM CHLORIDE 0.45% 1,000 ML IV SCH (18:35)
[2018-11-17] MEDS: ONDANSETRON 4 MG/2 ML VIAL IV PRN (23:27)
[2018-11-18 01:19] LABS: Basophils % 0.3 % (0.0-0.8); Eosinophils % 0.8 % (0.00-10.9); Hematocrit 30.3 VOL% (42.0-52.0); Hemoglobin 8.9 GM/DL (14.0-18.0); Immature Granulocytes % 0.5 %; Immature Granulocytes Absolute 0.02 #; Lymphocytes # 0.2 10*3/uL (1.4-4.0); Lymphocytes % 6.3 % (21.2-54.2); Mean Corpuscular HGB Conc 29.4 GM/DL (32-36); Mean Corpuscular Hemoglobin 26 PG (27-34); Mean Corpuscular Volume 86.8 FL (87-102); Monocytes # 0.3 10*3/uL (0.11-0.8); Neutrophils % 83.1 % (38.7-73.9); Red Blood Count 3.49 MC/CUMM (3.8-5.5); Red Cell Distribution Width 22.4 % (9.3-17.3); White Blood Count 3.7 T/CUMM (4-12)
[2018-11-18 01:21] LABS: Platelet Count 61 T/CUMM (130-400)
[2018-11-18] MEDS: MORPHINE 4 MG/1 ML VIAL IV PRN ×6 (01:27→11:38)
[2018-11-18 01:45] LABS: Albumin 2.9 G/DL (3.4-5.0); Bilirubin,Direct 3.28 MG/DL (0.0-0.20); Bilirubin,Indirect 1.2 MG/DL (0.0-1.0); Bilirubin,Total 4.5 MG/DL (0.2-1.0); Calcium 8.1 MG/DL (8.5-10.1); Osmolality,Calculated 274.8 MOS/KG (273-304); Potassium 3.9 MMOL/L (3.5-5.1); Total Protein 6.6 G/DL (6.4-8.3)
[2018-11-18 02:14] LABS: Hypochromasia 1+; Platelet Estimate Decreased; Polychromasia 1+
[2018-11-18] MEDS ORDERED: cefTRIAXone 1,000 MG in SYRINGE 1 EACH IV ONE (06:00)
[2018-11-18] MEDS ORDERED: fentaNYL 100 MCG/2 ML VIAL IV ONE (06:00)
[2018-11-18] MEDS ORDERED: MIDAZOLAM 2 MG/2 ML VIAL IV ONE (06:00)
[2018-11-18] MEDS ORDERED: DIAZEPAM 5 MG TABLET PO ONE (06:00)
[2018-11-18] MEDS: PANTOPRAZOLE 40 MG TABLET PO SCH (08:10)
[2018-11-18] MEDS: hydrOXYzine HCL 25 MG TABLET PO PRN ×2 (09:40→22:52)
[2018-11-18] MEDS ORDERED: HEPARIN/NACL 0.9% 2 UNITS/ML 2,000 ML IV ONE (11:17)
[2018-11-18] MEDS: ONDANSETRON 4 MG/2 ML VIAL IV PRN (11:38)
[2018-11-18] MEDS ORDERED: DIAZEPAM 5 MG TABLET ONE (13:27)
[2018-11-18] MEDS ORDERED: MIDAZOLAM 2 MG/2 ML VIAL ONE (13:53)
[2018-11-18] MEDS ORDERED: fentaNYL 100 MCG/2 ML VIAL ONE (13:53)
[2018-11-18] MEDS ORDERED: diphenhydrAMINE 50 MG/1 ML VIAL ONE (14:09)
[2018-11-18] MEDS ORDERED: diphenhydrAMINE 50 MG/1 ML VIAL IV ONE (14:48)
[2018-11-18] MEDS ORDERED: MORPHINE 4 MG/1 ML VIAL IV PRN ×3 (15:28→15:48)
[2018-11-18] MEDS: KETOROLAC 30 MG/1 ML VIAL IV SCH ×2 (15:44→21:03)
[2018-11-18] MEDS: methylPREDNISolone SOD SUC 125 MG/2 ML VIAL IV SCH ×2 (15:45→23:49)
[2018-11-18] MEDS: SODIUM CHLORIDE 0.45% 1,000 ML IV SCH (16:44)
[2018-11-18] MEDS: HYDROmorphone 2 MG/1 ML VIAL IV PRN ×3 (17:34→22:48)
[2018-11-19] MEDS: HYOSCYAMINE 0.125 MG TABLET PO PRN ×2 (00:35→18:08)
[2018-11-19] MEDS: KETOROLAC 30 MG/1 ML VIAL IV SCH ×3 (03:48→14:31)
[2018-11-19] MEDS: HYDROmorphone 2 MG/1 ML VIAL IV PRN ×6 (03:57→23:54)
[2018-11-19] MEDS: hydrOXYzine HCL 25 MG TABLET PO PRN ×2 (06:03→16:34)
[2018-11-19 07:24] LABS: Basophils # 0.2 10*3/uL (0.0-0.2); Basophils % 0.4 % (0.0-0.8); Hematocrit 37.2 VOL% (42.0-52.0); Immature Granulocytes % 2.8 %; Immature Granulocytes Absolute 1.24 #; Lymphocytes # 0.7 10*3/uL (1.4-4.0); Lymphocytes % 1.4 % (21.2-54.2); Mean Corpuscular HGB Conc 28.8 GM/DL (32-36); Mean Corpuscular Hemoglobin 27 PG (27-34); Mean Corpuscular Volume 92.8 FL (87-102); Monocytes # 4.3 10*3/uL (0.11-0.8); Monocytes % 9.5 % (1.7-12.7); NRBC # 0.08 10*3/uL; Neutrophils # 38.7 10*3/uL (1.4-7.4); Neutrophils % 85.9 % (38.7-73.9); Red Blood Count 4.01 MC/CUMM (3.8-5.5); Red Cell Distribution Width 25.5 % (9.3-17.3)
[2018-11-19 07:26] LABS: White Blood Count 45.1 T/CUMM (4-12)
[2018-11-19 07:27] LABS: Hemoglobin 10.7 GM/DL (14.0-18.0); Platelet Count 118 T/CUMM (130-400)
[2018-11-19 07:29] LABS: Albumin 3.2 G/DL (3.4-5.0); Bilirubin,Direct 2.82 MG/DL (0.0-0.20); Bilirubin,Indirect 1.1 MG/DL (0.0-1.0); Bilirubin,Total 3.9 MG/DL (0.2-1.0); Calcium 8.5 MG/DL (8.5-10.1); Osmolality,Calculated 275.5 MOS/KG (273-304); Potassium 5.1 MMOL/L (3.5-5.1); Total Protein 7.4 G/DL (6.4-8.3)
[2018-11-19 07:31] LABS: Band Neutrophils 8 % (0-10); Lymphocytes 1 % (20-55); Macrocytosis Slight; Platelet Estimate Decreased; Polychromasia Slight; Segmented Neutrophils 80 % (50-85); Total Cells Counted 100
[2018-11-19 07:32] LABS: Hypochromasia 1+
[2018-11-19] MEDS: PANTOPRAZOLE 40 MG TABLET PO SCH (08:17)
[2018-11-19] MEDS: methylPREDNISolone SOD SUC 125 MG/2 ML VIAL IV SCH ×3 (08:18→23:52)
[2018-11-19] MEDS: SODIUM CHLORIDE 0.9% 1,000 ML IV SCH ×2 (11:52→21:27)
[2018-11-19 13:52] LABS: Basophils % 0.4 % (0.0-0.8); Mean Corpuscular Volume 94.1 FL (87-102); Red Blood Count 3.93 MC/CUMM (3.8-5.5)
[2018-11-19 14:14] LABS: Basophils # 0.2 10*3/uL (0.0-0.2); Hemoglobin 10.5 GM/DL (14.0-18.0); Immature Granulocytes % 2.8 %; Lymphocytes # 0.7 10*3/uL (1.4-4.0); Lymphocytes % 1.4 % (21.2-54.2); Mean Corpuscular HGB Conc 28.4 GM/DL (32-36); Mean Corpuscular Hemoglobin 27 PG (27-34); Monocytes # 4.4 10*3/uL (0.11-0.8); Monocytes % 9.4 % (1.7-12.7); Neutrophils # 40.3 10*3/uL (1.4-7.4); Platelet Count 114 T/CUMM (130-400)
[2018-11-19 14:17] LABS: Calcium 8.6 MG/DL (8.5-10.1); Osmolality,Calculated 272.9 MOS/KG (273-304)
[2018-11-19 14:22] LABS: White Blood Count 46.9 T/CUMM (4-12)
[2018-11-19 14:25] LABS: Potassium 7.1 MMOL/L (3.5-5.1)
[2018-11-19] MEDS ORDERED: SODIUM BICARBONATE 50 MEQ/50 ML VIAL IV ONE (14:31)
[2018-11-19] MEDS ORDERED: DEXTROSE 50% 25 GM/50 ML SYRINGE IV ONE (14:31)
[2018-11-19] MEDS ORDERED: INSULIN REGULAR 100 UNIT/ML IV ONE (14:31)
[2018-11-19] MEDS ORDERED: CALCIUM GLUCONATE 1,000 MG in SODIUM CHLORIDE 0.9% 100 ML IV ONE (15:00)
[2018-11-19 15:56] LABS: Band Neutrophils 35 % (0-10); Lymphocytes 2 % (20-55); Nucleated Red Blood Cells 1 (0-5); Segmented Neutrophils 59 % (50-85)
[2018-11-19 15:57] LABS: Anisocytosis 2+; Polychromasia 3+
[2018-11-19 15:58] LABS: Hypochromasia Slight; Macrocytosis 2+; Microcytosis 1+
[2018-11-19 15:59] LABS: Ovalocytes Few; Platelet Estimate Normal
[2018-11-19 16:00] LABS: Total Cells Counted 100
[2018-11-20] MEDS: HYDROmorphone 2 MG/1 ML VIAL IV PRN ×8 (01:59→23:55)
[2018-11-20] MEDS: hydrOXYzine HCL 25 MG TABLET PO PRN ×3 (02:02→23:52)
[2018-11-20] MEDS: HYOSCYAMINE 0.125 MG TABLET PO PRN ×2 (02:02→20:50)
[2018-11-20] MEDS: SODIUM CHLORIDE 0.9% 1,000 ML IV SCH ×4 (04:37→18:06)
[2018-11-20 05:22] LABS: Basophils # 0.1 10*3/uL (0.0-0.2); Basophils % 0.2 % (0.0-0.8); Hematocrit 31.9 VOL% (42.0-52.0); Hemoglobin 9.4 GM/DL (14.0-18.0); Immature Granulocytes % 1.6 %; Immature Granulocytes Absolute 0.65 #; Lymphocytes # 0.7 10*3/uL (1.4-4.0); Lymphocytes % 1.7 % (21.2-54.2); Mean Corpuscular HGB Conc 29.5 GM/DL (32-36); Mean Corpuscular Hemoglobin 28 PG (27-34); Mean Corpuscular Volume 93.3 FL (87-102); Monocytes # 4.4 10*3/uL (0.11-0.8); Monocytes % 11.1 % (1.7-12.7); NRBC # 0.07 10*3/uL; Neutrophils % 85.4 % (38.7-73.9); Platelet Count 117 T/CUMM (130-400); Red Blood Count 3.42 MC/CUMM (3.8-5.5); White Blood Count 39.8 T/CUMM (4-12)
[2018-11-20 05:34] LABS: Bilirubin,Direct 4.2 MG/DL (0.0-0.20); Bilirubin,Indirect 1.2 MG/DL (0.0-1.0); Bilirubin,Total 5.4 MG/DL (0.2-1.0); Calcium 7.9 MG/DL (8.5-10.1); Osmolality,Calculated 271.9 MOS/KG (273-304); Total Protein 6.6 G/DL (6.4-8.3)
[2018-11-20] MEDS: methylPREDNISolone SOD SUC 125 MG/2 ML VIAL IV SCH (06:06)
[2018-11-20 06:31] LABS: Band Neutrophils 18 % (0-10); Lymphocytes 2 % (20-55); Metamyelocytes 2 %; Myelocytes 1 %; Segmented Neutrophils 67 % (50-85); Total Cells Counted 100
[2018-11-20 06:32] LABS: Anisocytosis 2+; Macrocytosis 2+; Ovalocytes 1+; Platelet Estimate Decreased; Polychromasia 1+
[2018-11-20] MEDS ORDERED: SODIUM BICARBONATE 50 MEQ/50 ML VIAL IV ONE (08:21)
[2018-11-20] MEDS ORDERED: INSULIN REGULAR 100 UNIT/ML IV ONE (08:21)
[2018-11-20] MEDS ORDERED: DEXTROSE 50% 25 GM/50 ML SYRINGE IV ONE (08:21)
[2018-11-20] MEDS: PANTOPRAZOLE 40 MG TABLET PO SCH (08:50)
[2018-11-20] MEDS ORDERED: CALCIUM GLUCONATE 1,000 MG in SODIUM CHLORIDE 0.9% 100 ML IV ONE (09:00)
[2018-11-20 18:23] LABS: Apearance,Urine CLEAR (Clear); Blood, Urine Negative (Negative); Glucose,Urine (UA) Negative (Negative); Hyaline Casts,Urine 22 /LPF (0-3); Ketones,Urine Negative (Negative); Mucus,Urine Few /LPF (Occasional); Nitrite,Urine Negative (Negative); Protein,Urine Negative; RBC,Urine 1 /HPF (0-4); Squamous Epithelial Cell,Urine Occasional /HPF (0-10); Urine Color Amber (Yellow); Urine Specific Gravity 1.023 (1.001-1.035); WBC,Urine 1 /HPF (0-6)
[2018-11-20 18:25] LABS: Bilirubin,Urine Small mg/dL (Negative)
[2018-11-20] MEDS: ONDANSETRON 4 MG/2 ML VIAL IV PRN ×2 (21:02→23:53)
[2018-11-20] MEDS: chlorproMAZINE 25 MG TABLET PO PRN (22:33)
[2018-11-21] MEDS: SODIUM CHLORIDE 0.9% 1,000 ML IV SCH ×3 (00:59→20:15)
[2018-11-21] MEDS: HYDROmorphone 2 MG/1 ML VIAL IV PRN ×9 (03:53→23:49)
[2018-11-21 05:29] LABS: Basophils % 0.1 % (0.0-0.8); Hematocrit 28.6 VOL% (42.0-52.0); Hemoglobin 8.6 GM/DL (14.0-18.0); Immature Granulocytes % 0.9 %; Immature Granulocytes Absolute 0.25 #; Lymphocytes # 0.5 10*3/uL (1.4-4.0); Lymphocytes % 1.8 % (21.2-54.2); Mean Corpuscular HGB Conc 30.1 GM/DL (32-36); Mean Corpuscular Hemoglobin 28 PG (27-34); Mean Corpuscular Volume 92.6 FL (87-102); Monocytes # 3.1 10*3/uL (0.11-0.8); Monocytes % 11.3 % (1.7-12.7); NRBC # 0.18 10*3/uL; Neutrophils # 23.9 10*3/uL (1.4-7.4); Neutrophils % 85.9 % (38.7-73.9); Platelet Count 146 T/CUMM (130-400); Red Blood Count 3.09 MC/CUMM (3.8-5.5); Red Cell Distribution Width 29.3 % (9.3-17.3); White Blood Count 27.8 T/CUMM (4-12)
[2018-11-21 05:38] LABS: Calcium 7.9 MG/DL (8.5-10.1); Osmolality,Calculated 276.8 MOS/KG (273-304); Potassium 5.9 MMOL/L (3.5-5.1)
[2018-11-21] MEDS: hydrOXYzine HCL 25 MG TABLET PO PRN (05:48)
[2018-11-21] MEDS: chlorproMAZINE 25 MG TABLET PO PRN ×2 (05:48→21:11)
[2018-11-21] MEDS: HYOSCYAMINE 0.125 MG TABLET PO PRN (05:49)
[2018-11-21 06:22] LABS: Band Neutrophils 11 % (0-10); Lymphocytes 3 % (20-55); Nucleated Red Blood Cells 2 (0-5); Segmented Neutrophils 77 % (50-85); Total Cells Counted 100
[2018-11-21 06:23] LABS: Anisocytosis 2+; Hypochromasia 1+; Macrocytosis 1+; Polychromasia 1+; Target Cells Slight
[2018-11-21 06:24] LABS: Platelet Estimate Decreased; Spherocytes Slight
[2018-11-21] MEDS ORDERED: DEXTROSE 50% 25 GM/50 ML SYRINGE IV ONE (08:26)
[2018-11-21] MEDS ORDERED: INSULIN REGULAR 100 UNIT/ML IV ONE (08:26)
[2018-11-21] MEDS ORDERED: CALCIUM GLUCONATE 1,000 MG in SODIUM CHLORIDE 0.9% 100 ML IV ONE (09:00)
[2018-11-21] MEDS ORDERED: SODIUM BICARBONATE 50 MEQ/50 ML VIAL IV ONE (09:00)
[2018-11-21] MEDS: PANTOPRAZOLE 40 MG TABLET PO SCH (09:12)
[2018-11-21] MEDS: oxyCODONE/ACETAMINOPHEN 5-325 MG TABLET PO PRN ×2 (16:02→22:33)
[2018-11-21] MEDS: MELATONIN 3 MG TABLET PO PRN (22:34)
[2018-11-22] MEDS: HYDROmorphone 2 MG/1 ML VIAL IV PRN ×7 (02:19→23:05)
[2018-11-22] MEDS: SODIUM CHLORIDE 0.9% 1,000 ML IV SCH ×3 (03:52→23:43)
[2018-11-22] MEDS: chlorproMAZINE 25 MG TABLET PO PRN (04:43)
[2018-11-22] MEDS: ONDANSETRON 4 MG/2 ML VIAL IV PRN ×2 (04:45→19:18)
[2018-11-22 05:45] LABS: Basophils % 0.1 % (0.0-0.8); Hematocrit 23.9 VOL% (42.0-52.0); Immature Granulocytes % 1.4 %; Immature Granulocytes Absolute 0.19 #; Lymphocytes # 0.5 10*3/uL (1.4-4.0); Lymphocytes % 3.8 % (21.2-54.2); Mean Corpuscular HGB Conc 29.3 GM/DL (32-36); Mean Corpuscular Hemoglobin 28 PG (27-34); Mean Corpuscular Volume 96.4 FL (87-102); Mean Platelet Volume 12.8 FL (9.6-12.0); Monocytes # 2.2 10*3/uL (0.11-0.8); Monocytes % 15.9 % (1.7-12.7); NRBC # 0.44 10*3/uL; Neutrophils # 10.8 10*3/uL (1.4-7.4); Neutrophils % 78.8 % (38.7-73.9); Platelet Count 148 T/CUMM (130-400); Red Blood Count 2.48 MC/CUMM (3.8-5.5); Red Cell Distribution Width 30.7 % (9.3-17.3); White Blood Count 13.7 T/CUMM (4-12)
[2018-11-22 06:18] LABS: Albumin 2.4 G/DL (3.4-5.0); Bilirubin,Direct 6.55 MG/DL (0.0-0.20); Bilirubin,Indirect 1.5 MG/DL (0.0-1.0); Calcium 7.6 MG/DL (8.5-10.1); Osmolality,Calculated 281.4 MOS/KG (273-304); Total Protein 4.7 G/DL (6.4-8.3)
[2018-11-22 06:22] LABS: Band Neutrophils 21 % (0-10); Lymphocytes 5 % (20-55); Segmented Neutrophils 68 % (50-85); Total Cells Counted 100
[2018-11-22 06:23] LABS: Anisocytosis 3+; Macrocytosis 1+; Nucleated Red Blood Cells 2 (0-5); Platelet Estimate Adequate
[2018-11-22 06:25] LABS: Basophilic Stippling Slight; Polychromasia Slight
[2018-11-22] MEDS ORDERED: SODIUM CHLORIDE 0.9% 1,000 ML IV PRN ×3 (06:34→18:49)
[2018-11-22] MEDS ORDERED: OCTREOTIDE 100 MCG/ML SYRINGE IV ONE (10:25)
[2018-11-22] MEDS: OCTREOTIDE 500 MCG in SODIUM CHLORIDE 0.9% 100 ML IV SCH ×2 (10:45→21:40)
[2018-11-22] MEDS ORDERED: LIDOCAINE 2% 20 ML VIAL ONE (11:15)
[2018-11-22 11:22] LABS: Basophils % 0.2 % (0.0-0.8); Hematocrit 23.9 VOL% (42.0-52.0); Hemoglobin 7.2 GM/DL (14.0-18.0); Immature Granulocytes % 2.2 %; Immature Granulocytes Absolute 0.37 #; Lymphocytes # 0.5 10*3/uL (1.4-4.0); Mean Corpuscular HGB Conc 30.1 GM/DL (32-36); Mean Corpuscular Hemoglobin 28 PG (27-34); Mean Corpuscular Volume 94.1 FL (87-102); Mean Platelet Volume 12.2 FL (9.6-12.0); Monocytes # 2.8 10*3/uL (0.11-0.8); Monocytes % 16.7 % (1.7-12.7); NRBC # 0.83 10*3/uL; Neutrophils # 13.1 10*3/uL (1.4-7.4); Neutrophils % 77.9 % (38.7-73.9); Platelet Count 137 T/CUMM (130-400); Red Blood Count 2.54 MC/CUMM (3.8-5.5); Red Cell Distribution Width 28.5 % (9.3-17.3); White Blood Count 16.9 T/CUMM (4-12)
[2018-11-22 11:24] LABS: INR 1.5; PT Patient Result 15.9 SECS
[2018-11-22] MEDS ORDERED: PROPOFOL 1,000 MG/100 ML BOTTLE IV ONE (11:30)
[2018-11-22 11:36] LABS: Calcium 6.9 MG/DL (8.5-10.1); Osmolality,Calculated 284.2 MOS/KG (273-304); Potassium 5.4 MMOL/L (3.5-5.1)
[2018-11-22] MEDS: PROPOFOL 1,000 MG/100 ML BOTTLE IV SCH ×2 (11:50→17:35)
[2018-11-22] MEDS: PANTOPRAZOLE 40 MG TABLET PO SCH (12:04)
[2018-11-22 12:06] LABS: Band Neutrophils 3 % (0-10); Lymphocytes 6 % (20-55); Nucleated Red Blood Cells 3 (0-5); Segmented Neutrophils 81 % (50-85); Total Cells Counted 100
[2018-11-22 12:07] LABS: Hypochromasia 2+; Microcytosis 1+; Stomatocytes Few; Target Cells Few
[2018-11-22 12:08] LABS: Anisocytosis 2+; Platelet Estimate Normal; Poikilocytosis 1+; Polychromasia 2+
[2018-11-22] MEDS ORDERED: PROPOFOL 200 MG/20 ML VIAL IV ONE (12:24)
[2018-11-22] MEDS ORDERED: MIDAZOLAM 10 MG/2 ML VIAL ONE (12:25)
[2018-11-22] MEDS ORDERED: ROCURONIUM 100 MG/10 ML VIAL IV ONE (12:25)
[2018-11-22] MEDS ORDERED: PHENYLEPHRINE 1 MG/10 ML SYRINGE IV ONE (12:25)
[2018-11-22 12:47] LABS: ABG HCO3 22.8 MMOL/L (20-26); ABG PCO2 35.5 MM HG (35-48); ABG PH 7.406 (7.35-7.45); ABG TCO2 20.9 MMOL/L (23-27); Allen Test Positive; Pt O2 Delivery Device Ventilator
[2018-11-22 14:01] LABS: Apearance,Urine CLEAR (Clear); Bilirubin,Urine Small mg/dL (Negative); Blood, Urine Small mg/dL (Negative); Glucose,Urine (UA) Negative (Negative); Hyaline Casts,Urine 11 /LPF (0-3); Ketones,Urine Negative (Negative); Mucus,Urine Few /LPF (Occasional); Nitrite,Urine Negative (Negative); Protein,Urine Negative; RBC,Urine 3 /HPF (0-4); Squamous Epithelial Cell,Urine Occasional /HPF (0-10); Urine Color Amber (Yellow); WBC,Urine 1 /HPF (0-6)
[2018-11-22 15:53] LABS: Hematocrit 21.8 VOL% (42.0-52.0); Hemoglobin 6.8 GM/DL (14.0-18.0)
[2018-11-22] MEDS ORDERED: PHENYLEPHRINE DRIP 40 MG/250 ML PREMIX IV PRN (19:54)
[2018-11-23] MEDS: PROPOFOL 1,000 MG/100 ML BOTTLE IV SCH ×3 (00:12→14:15)
[2018-11-23 06:15] LABS: Basophils % 0.4 % (0.0-0.8); Eosinophils # 0.1 10*3/uL (0.0-0.87); Eosinophils % 0.9 % (0.00-10.9); Hematocrit 27.2 VOL% (42.0-52.0); Hemoglobin 8.5 GM/DL (14.0-18.0); Immature Granulocytes % 3.8 %; Immature Granulocytes Absolute 0.42 #; Lymphocytes # 0.6 10*3/uL (1.4-4.0); Lymphocytes % 5.2 % (21.2-54.2); Mean Corpuscular HGB Conc 31.3 GM/DL (32-36); Mean Corpuscular Hemoglobin 29 PG (27-34); Mean Corpuscular Volume 93.8 FL (87-102); Mean Platelet Volume 12.7 FL (9.6-12.0); Monocytes # 1.7 10*3/uL (0.11-0.8); Monocytes % 14.9 % (1.7-12.7); NRBC # 1.18 10*3/uL; Neutrophils # 8.4 10*3/uL (1.4-7.4); Neutrophils % 74.8 % (38.7-73.9); Platelet Count 122 T/CUMM (130-400); Red Cell Distribution Width 25.7 % (9.3-17.3); White Blood Count 11.2 T/CUMM (4-12)
[2018-11-23 06:40] LABS: Bilirubin,Direct 3.7 MG/DL (0.0-0.20); Bilirubin,Indirect 1.3 MG/DL (0.0-1.0); Calcium 7.4 MG/DL (8.5-10.1); Osmolality,Calculated 283.8 MOS/KG (273-304); Potassium 4.2 MMOL/L (3.5-5.1); Total Protein 4.4 G/DL (6.4-8.3)
[2018-11-23 06:59] LABS: Band Neutrophils 2 % (0-10); Eosinophils 2 % (0-10); Hypochromasia 1+; Lymphocytes 4 % (20-55); Macrocytosis 1+; Nucleated Red Blood Cells 8 (0-5); Platelet Estimate Adequate; Polychromasia 1+; Segmented Neutrophils 85 % (50-85); Total Cells Counted 100
[2018-11-23] MEDS: OCTREOTIDE 500 MCG in SODIUM CHLORIDE 0.9% 100 ML IV SCH ×2 (09:06→19:00)
[2018-11-23] MEDS: LANSOPRAZOLE ODT 30 MG TABLET PER TUBE SCH (09:16)
[2018-11-23] MEDS: HYDROmorphone 2 MG/1 ML VIAL IV PRN ×7 (10:23→23:50)
[2018-11-23 12:51] LABS: Hematocrit 27.3 VOL% (42.0-52.0); Hemoglobin 8.5 GM/DL (14.0-18.0)
[2018-11-23 19:57] LABS: Hematocrit 27.6 VOL% (42.0-52.0); Hemoglobin 8.5 GM/DL (14.0-18.0)
[2018-11-24] MEDS: HYDROmorphone 2 MG/1 ML VIAL IV PRN ×9 (02:23→23:46)
[2018-11-24 04:49] LABS: Basophils # 0.1 10*3/uL (0.0-0.2); Basophils % 0.4 % (0.0-0.8); Eosinophils # 0.2 10*3/uL (0.0-0.87); Eosinophils % 1.6 % (0.00-10.9); Hematocrit 30.3 VOL% (42.0-52.0); Hemoglobin 9.4 GM/DL (14.0-18.0); Immature Granulocytes % 4.2 %; Immature Granulocytes Absolute 0.57 #; Lymphocytes # 0.4 10*3/uL (1.4-4.0); Lymphocytes % 3.1 % (21.2-54.2); Mean Corpuscular Hemoglobin 29 PG (27-34); Mean Corpuscular Volume 94.1 FL (87-102); Mean Platelet Volume 12.2 FL (9.6-12.0); Monocytes # 2.2 10*3/uL (0.11-0.8); Monocytes % 16.1 % (1.7-12.7); NRBC # 0.27 10*3/uL; Neutrophils # 10.1 10*3/uL (1.4-7.4); Neutrophils % 74.6 % (38.7-73.9); Platelet Count 150 T/CUMM (130-400); Red Blood Count 3.22 MC/CUMM (3.8-5.5); Red Cell Distribution Width 27.2 % (9.3-17.3); White Blood Count 13.6 T/CUMM (4-12)
[2018-11-24 04:54] LABS: Albumin 2.2 G/DL (3.4-5.0); Bilirubin,Total 7.5 MG/DL (0.2-1.0); Calcium 7.4 MG/DL (8.5-10.1); Osmolality,Calculated 277.5 MOS/KG (273-304); Potassium 4.1 MMOL/L (3.5-5.1); Total Protein 4.8 G/DL (6.4-8.3)
[2018-11-24 05:00] LABS: PT Patient Result 10.9 SECS; Partial Thromboplastin Time 25.7 SECS (0-40)
[2018-11-24 05:43] LABS: Eosinophils 1 % (0-10); Lymphocytes 3 % (20-55); Nucleated Red Blood Cells 2 (0-5); Segmented Neutrophils 90 % (50-85); Total Cells Counted 100
[2018-11-24 05:44] LABS: Anisocytosis 2+; Hypochromasia 1+; Macrocytosis 1+; Ovalocytes Few
[2018-11-24 05:45] LABS: Acanthocytes Few; Platelet Estimate Adequate; Polychromasia 1+; Target Cells 1+
[2018-11-24] MEDS: OCTREOTIDE 500 MCG in SODIUM CHLORIDE 0.9% 100 ML IV SCH ×3 (06:24→16:45)
[2018-11-24] MEDS ORDERED: SODIUM CHLORIDE 0.9% 1,000 ML IV PRN (08:03)
[2018-11-24] MEDS: LANSOPRAZOLE ODT 30 MG TABLET PER TUBE SCH (08:27)
[2018-11-24] MEDS ORDERED: SEVOFLURANE 1 UNIT/15 MINUTE INH ONE (11:47)
[2018-11-24] MEDS ORDERED: HEPARIN/NACL 0.9% 2 UNITS/ML 500 ML IV ONE (11:47)
[2018-11-24] MEDS ORDERED: PROPOFOL 200 MG/20 ML VIAL IV ONE (11:47)
[2018-11-24] MEDS ORDERED: SODIUM CHLORIDE 0.9% 1,000 ML IV ONE (11:48)
[2018-11-24] MEDS ORDERED: MIDAZOLAM 2 MG/2 ML VIAL ONE (11:48)
[2018-11-24] MEDS ORDERED: PHENYLEPHRINE 1 MG/10 ML SYRINGE IV ONE (11:48)
[2018-11-24] MEDS ORDERED: ROCURONIUM 100 MG/10 ML VIAL IV ONE (11:48)
[2018-11-24] MEDS ORDERED: fentaNYL 100 MCG/2 ML VIAL ONE (11:48)
[2018-11-24] MEDS ORDERED: NEOSTIGMINE 10 MG/10 ML VIAL ONE (11:49)
[2018-11-24] MEDS ORDERED: GLYCOPYRROLATE 0.4 MG/2 ML VIAL ONE (11:49)
[2018-11-24 11:56] LABS: Hematocrit 28.1 VOL% (42.0-52.0); Hemoglobin 8.7 GM/DL (14.0-18.0)
[2018-11-24] MEDS: oxyCODONE/ACETAMINOPHEN 5-325 MG TABLET PO PRN (19:37)
[2018-11-24] MEDS: SODIUM CHLORIDE 0.9% 1,000 ML IV SCH ×3 (19:37→23:52)
[2018-11-24 20:03] LABS: Hematocrit 25.7 VOL% (42.0-52.0); Hemoglobin 8.1 GM/DL (14.0-18.0)
[2018-11-24] MEDS: hydrOXYzine HCL 25 MG TABLET PO PRN (21:56)
[2018-11-24] MEDS: MELATONIN 3 MG TABLET PO PRN (21:56)
[2018-11-24] MEDS: HYOSCYAMINE 0.125 MG TABLET PO PRN (21:56)
[2018-11-25] MEDS: HYDROmorphone 2 MG/1 ML VIAL IV PRN ×8 (01:50→23:44)
[2018-11-25] MEDS: oxyCODONE/ACETAMINOPHEN 5-325 MG TABLET PO PRN ×3 (03:41→22:08)
[2018-11-25] MEDS: hydrOXYzine HCL 25 MG TABLET PO PRN (03:41)
[2018-11-25] MEDS: OCTREOTIDE 500 MCG in SODIUM CHLORIDE 0.9% 100 ML IV SCH ×2 (04:10→14:21)
[2018-11-25 06:02] LABS: Albumin 2.1 G/DL (3.4-5.0); Bilirubin,Direct 6.38 MG/DL (0.0-0.20); Bilirubin,Indirect 1.5 MG/DL (0.0-1.0); Bilirubin,Total 7.9 MG/DL (0.2-1.0); Osmolality,Calculated 273.7 MOS/KG (273-304); Potassium 3.8 MMOL/L (3.5-5.1); Total Protein 4.4 G/DL (6.4-8.3)
[2018-11-25 06:58] LABS: Basophils % 0.4 % (0.0-0.8); Eosinophils # 0.4 10*3/uL (0.0-0.87); Eosinophils % 4.3 % (0.00-10.9); Hematocrit 28.4 VOL% (42.0-52.0); Hemoglobin 8.6 GM/DL (14.0-18.0); Immature Granulocytes Absolute 0.48 #; Lymphocytes # 0.5 10*3/uL (1.4-4.0); Lymphocytes % 4.7 % (21.2-54.2); Mean Corpuscular HGB Conc 30.3 GM/DL (32-36); Mean Corpuscular Hemoglobin 29 PG (27-34); Mean Corpuscular Volume 96.9 FL (87-102); Mean Platelet Volume 11.6 FL (9.6-12.0); Monocytes # 1.9 10*3/uL (0.11-0.8); Monocytes % 19.5 % (1.7-12.7); NRBC # 0.06 10*3/uL; Neutrophils # 6.3 10*3/uL (1.4-7.4); Neutrophils % 66.1 % (38.7-73.9); Platelet Count 121 T/CUMM (130-400); Red Blood Count 2.93 MC/CUMM (3.8-5.5); Red Cell Distribution Width 27.2 % (9.3-17.3); White Blood Count 9.5 T/CUMM (4-12)
[2018-11-25 07:25] LABS: Eosinophils 4 % (0-10); Hypochromasia 1+; Lymphocytes 6 % (20-55); Myelocytes 1 %; Nucleated Red Blood Cells 1 (0-5); Ovalocytes Slight; Platelet Estimate Normal; Segmented Neutrophils 78 % (50-85); Total Cells Counted 100
[2018-11-25 07:26] LABS: Macrocytosis Slight
[2018-11-25] MEDS: LANSOPRAZOLE ODT 30 MG TABLET PER TUBE SCH (08:54)
[2018-11-25] MEDS: MELATONIN 3 MG TABLET PO PRN (22:08)
[2018-11-25] MEDS: HYOSCYAMINE 0.125 MG TABLET PO PRN (23:01)
[2018-11-26] MEDS: OCTREOTIDE 500 MCG in SODIUM CHLORIDE 0.9% 100 ML IV SCH ×2 (00:22→11:00)
[2018-11-26] MEDS: SODIUM CHLORIDE 0.9% 1,000 ML IV SCH (00:23)
[2018-11-26] MEDS: HYDROmorphone 2 MG/1 ML VIAL IV PRN ×8 (01:45→23:55)
[2018-11-26 04:27] LABS: Basophils % 0.3 % (0.0-0.8); Eosinophils # 0.4 10*3/uL (0.0-0.87); Hematocrit 29.4 VOL% (42.0-52.0); Hemoglobin 9.2 GM/DL (14.0-18.0); Immature Granulocytes % 4.6 %; Immature Granulocytes Absolute 0.55 #; Lymphocytes # 0.6 10*3/uL (1.4-4.0); Mean Corpuscular HGB Conc 31.3 GM/DL (32-36); Mean Corpuscular Hemoglobin 30 PG (27-34); Mean Corpuscular Volume 95.1 FL (87-102); Mean Platelet Volume 11.1 FL (9.6-12.0); Monocytes # 2.2 10*3/uL (0.11-0.8); Monocytes % 18.5 % (1.7-12.7); NRBC # 0.02 10*3/uL; Neutrophils # 8.2 10*3/uL (1.4-7.4); Neutrophils % 68.6 % (38.7-73.9); Platelet Count 147 T/CUMM (130-400); Red Blood Count 3.09 MC/CUMM (3.8-5.5); Red Cell Distribution Width 26.7 % (9.3-17.3)
[2018-11-26 04:34] LABS: INR 1.2; PT Patient Result 12.6 SECS
[2018-11-26 04:58] LABS: Anisocytosis 1+; Eosinophils 5 % (0-10); Lymphocytes 9 % (20-55); Macrocytosis Slight; Segmented Neutrophils 70 % (50-85); Total Cells Counted 100
[2018-11-26 04:59] LABS: Albumin 2.2 G/DL (3.4-5.0); Calcium 7.2 MG/DL (8.5-10.1); Osmolality,Calculated 276.5 MOS/KG (273-304); Polychromasia Slight; Stomatocytes Few; Total Protein 4.6 G/DL (6.4-8.3)
[2018-11-26 05:03] LABS: Platelet Estimate Adequate
[2018-11-26] MEDS: oxyCODONE/ACETAMINOPHEN 5-325 MG TABLET PO PRN ×3 (07:15→20:14)
[2018-11-26] MEDS: LANSOPRAZOLE ODT 30 MG TABLET PER TUBE SCH (08:12)
[2018-11-27] MEDS: SODIUM CHLORIDE 0.9% 1,000 ML IV SCH (01:04)
[2018-11-27] MEDS: ONDANSETRON 4 MG/2 ML VIAL IV PRN ×2 (01:21→20:25)
[2018-11-27] MEDS: oxyCODONE/ACETAMINOPHEN 5-325 MG TABLET PO PRN ×3 (02:16→20:57)
[2018-11-27] MEDS: HYDROmorphone 2 MG/1 ML VIAL IV PRN ×9 (03:32→23:34)
[2018-11-27 05:51] LABS: Basophils # 0.1 10*3/uL (0.0-0.2); Basophils % 0.4 % (0.0-0.8); Eosinophils # 0.4 10*3/uL (0.0-0.87); Eosinophils % 2.8 % (0.00-10.9); Hematocrit 34.2 VOL% (42.0-52.0); Hemoglobin 10.4 GM/DL (14.0-18.0); Immature Granulocytes % 3.7 %; Immature Granulocytes Absolute 0.48 #; Lymphocytes # 1.3 10*3/uL (1.4-4.0); Mean Corpuscular HGB Conc 30.4 GM/DL (32-36); Mean Corpuscular Hemoglobin 30 PG (27-34); Mean Corpuscular Volume 98.6 FL (87-102); Monocytes % 15.9 % (1.7-12.7); Neutrophils # 8.6 10*3/uL (1.4-7.4); Neutrophils % 67.2 % (38.7-73.9); Platelet Count 215 T/CUMM (130-400); Red Blood Count 3.47 MC/CUMM (3.8-5.5); White Blood Count 12.8 T/CUMM (4-12)
[2018-11-27 06:13] LABS: Albumin 2.5 G/DL (3.4-5.0); Calcium 7.8 MG/DL (8.5-10.1); Potassium 3.7 MMOL/L (3.5-5.1); Total Protein 5.6 G/DL (6.4-8.3)
[2018-11-27 06:23] LABS: Lymphocytes 9 % (20-55); Metamyelocytes 2 %; Myelocytes 1 %; Platelet Estimate Adequate; Polychromasia Few; Segmented Neutrophils 80 % (50-85); Target Cells Few; Total Cells Counted 100
[2018-11-27 06:51] LABS: Bilirubin,Total 12.4 MG/DL (0.2-1.0)
[2018-11-27] MEDS: LANSOPRAZOLE ODT 30 MG TABLET PER TUBE SCH (08:26)
[2018-11-27] MEDS: chlorproMAZINE 25 MG TABLET PO PRN (21:55)
[2018-11-28] MEDS: SODIUM CHLORIDE 0.9% 1,000 ML IV SCH (00:22)
[2018-11-28] MEDS: HYDROmorphone 2 MG/1 ML VIAL IV PRN ×3 (02:56→08:02)
[2018-11-28 06:13] LABS: Basophils # 0.1 10*3/uL (0.0-0.2); Basophils % 0.5 % (0.0-0.8); Eosinophils # 0.3 10*3/uL (0.0-0.87); Eosinophils % 1.9 % (0.00-10.9); Hematocrit 31.7 VOL% (42.0-52.0); Hemoglobin 9.7 GM/DL (14.0-18.0); Immature Granulocytes % 2.3 %; Immature Granulocytes Absolute 0.31 #; Lymphocytes % 7.7 % (21.2-54.2); Mean Corpuscular HGB Conc 30.6 GM/DL (32-36); Mean Corpuscular Hemoglobin 30 PG (27-34); Mean Corpuscular Volume 96.9 FL (87-102); Mean Platelet Volume 11.1 FL (9.6-12.0); Monocytes # 2.7 10*3/uL (0.11-0.8); Monocytes % 20.3 % (1.7-12.7); Neutrophils % 67.3 % (38.7-73.9); Platelet Count 232 T/CUMM (130-400); Red Blood Count 3.27 MC/CUMM (3.8-5.5); Red Cell Distribution Width 26.9 % (9.3-17.3); White Blood Count 13.3 T/CUMM (4-12)
[2018-11-28 06:35] LABS: Albumin 2.3 G/DL (3.4-5.0); Calcium 7.4 MG/DL (8.5-10.1); Potassium 3.8 MMOL/L (3.5-5.1); Total Protein 5.1 G/DL (6.4-8.3)
[2018-11-28 06:55] LABS: Band Neutrophils 1 % (0-10); Eosinophils 1 % (0-10); Lymphocytes 6 % (20-55); Segmented Neutrophils 72 % (50-85); Total Cells Counted 100
[2018-11-28 06:56] LABS: Hypochromasia 1+; Platelet Estimate Normal; Polychromasia Few; Target Cells Few
[2018-11-28] MEDS: LANSOPRAZOLE ODT 30 MG TABLET PER TUBE SCH (08:03)
[2018-11-28] MEDS: oxyCODONE/ACETAMINOPHEN 5-325 MG TABLET PO PRN (11:13)
[2018-11-28 11:16] VITALS: BP 142/73
== END 2018-11-28 15:05 | disposition home or self-care (01) | DRG 405 ==
LOC: EDBD → EDUNIT# → N.ED 04:05 → N.EDINP 06:57 → SUATTDRO 06:57 → N.4E 07:47 → N.EDINP 07:47 → N.ICU 11-13 14:40 → N.4E 11-14 11:29 → N.ICU 11-22 09:17 → N.5E 11-26 11:55
PROVIDERS: ADMIT Internal Medicine; ATTEND Hospitalist
PROC: IRTIPSW (2018-11-13 10:35)
PROC: IREMBBI (2018-11-18 13:50)

== ENCOUNTER 2018-11-29 18:43 | Inpatient (IN) ==
[2018-11-29] MEDS ORDERED: IBUPROFEN 800 MG TABLET PO STA (19:01)
[2018-11-29] MEDS ORDERED: SODIUM CHLORIDE 0.9% 1,000 ML IV STA (19:16)
[2018-11-29 20:23] LABS: Basophils # 0.1 10*3/uL (0.0-0.2); Basophils % 0.5 % (0.0-0.8); Eosinophils # 0.1 10*3/uL (0.0-0.87); Eosinophils % 0.2 % (0.00-10.9); Hematocrit 35.2 VOL% (42.0-52.0); Hemoglobin 11.1 GM/DL (14.0-18.0); Immature Granulocytes % 1.3 %; Immature Granulocytes Absolute 0.34 #; Lymphocytes # 0.4 10*3/uL (1.4-4.0); Lymphocytes % 1.6 % (21.2-54.2); Mean Corpuscular HGB Conc 31.5 GM/DL (32-36); Mean Corpuscular Volume 96.2 FL (87-102); Mean Platelet Volume 10.8 FL (9.6-12.0); Monocytes % 8.5 % (1.7-12.7); Neutrophils % 87.9 % (38.7-73.9); Platelet Count 209 T/CUMM (130-400); Red Blood Count 3.66 MC/CUMM (3.8-5.5); White Blood Count 26.2 T/CUMM (4-12)
[2018-11-29 20:32] LABS: INR 1.5; PT Patient Result 16.1 SECS
[2018-11-29 20:42] LABS: Alanine Aminotransferase 60 U/L (16-61); Alkaline Phosphatase 557 U/L (45-117); Aspartate Amino Transferase 65 U/L (0-37); Blood Urea Nitrogen 7 MG/DL (7-18); Calcium 7.2 MG/DL (8.5-10.1); Glucose 138 MG/DL (74-106); Osmolality,Calculated 269.1 MOS/KG (273-304); Total Protein 4.9 G/DL (6.4-8.3)
[2018-11-29 20:50] LABS: Eosinophils 1 % (0-10); Segmented Neutrophils 91 % (50-85); Total Cells Counted 100
[2018-11-29 20:51] LABS: Anisocytosis 1+; Platelet Estimate Adequate; Polychromasia Few; Target Cells Few
[2018-11-29] MEDS ORDERED: PIPERACILLIN/TAZOBACTAM 3,375 MG in SODIUM CHLORIDE 0.9% 100 ML IV ONE (21:31)
[2018-11-29] MEDS ORDERED: MORPHINE 4 MG/1 ML VIAL IV STA (21:40)
[2018-11-29] MEDS ORDERED: ONDANSETRON 4 MG/2 ML VIAL IV ONE (21:40)
[2018-11-29 22:50] LABS: Apearance,Urine CLEAR (Clear); Blood, Urine Small mg/dL (Negative); Glucose,Urine (UA) Negative (Negative); Ketones,Urine Negative (Negative); Nitrite,Urine Negative (Negative); Protein,Urine Negative; RBC,Urine 3 /HPF (0-4); Urine Color Amber (Yellow); Urine Specific Gravity 1.035 (1.001-1.035); WBC,Urine <1 /HPF (0-6)
[2018-11-29 22:52] LABS: Bilirubin,Urine Moderate mg/dL (Negative)
[2018-11-30] MEDS: SODIUM CHLORIDE 0.9% 1,000 ML IV SCH ×2 (00:39→15:04)
[2018-11-30] MEDS ORDERED: ALBUTEROL/IPRATROPIUM 3 ML NEB RESP TX PRN (00:45)
[2018-11-30] MEDS: LEVOFLOXACIN INJ 750 MG in PREMIX 1 EACH IV SCH (00:56)
[2018-11-30] MEDS: HYDROmorphone 2 MG/1 ML VIAL IV PRN ×6 (01:06→17:50)
[2018-11-30] MEDS: ONDANSETRON 4 MG/2 ML VIAL IV PRN ×2 (01:06→06:00)
[2018-11-30 03:15] LABS: Basophils # 0.1 10*3/uL (0.0-0.2); Basophils % 0.6 % (0.0-0.8); Eosinophils % 0.2 % (0.00-10.9); Hematocrit 30.3 VOL% (42.0-52.0); Hemoglobin 9.3 GM/DL (14.0-18.0); Immature Granulocytes % 1.1 %; Immature Granulocytes Absolute 0.23 #; Lymphocytes # 0.5 10*3/uL (1.4-4.0); Lymphocytes % 2.5 % (21.2-54.2); Mean Corpuscular HGB Conc 30.7 GM/DL (32-36); Mean Corpuscular Volume 97.4 FL (87-102); Mean Platelet Volume 10.5 FL (9.6-12.0); Monocytes % 9.7 % (1.7-12.7); Neutrophils % 85.9 % (38.7-73.9); Platelet Count 232 T/CUMM (130-400); Red Blood Count 3.11 MC/CUMM (3.8-5.5); Red Cell Distribution Width 27.4 % (9.3-17.3); White Blood Count 20.4 T/CUMM (4-12)
[2018-11-30 03:25] LABS: INR 1.5; PT Patient Result 16.1 SECS
[2018-11-30 03:57] LABS: Albumin 1.9 G/DL (3.4-5.0); Bilirubin,Total 9.9 MG/DL (0.2-1.0); Calcium 7.2 MG/DL (8.5-10.1); Osmolality,Calculated 278.3 MOS/KG (273-304); Total Protein 4.6 G/DL (6.4-8.3)
[2018-11-30 05:03] LABS: Lymphocytes 2 % (20-55); Segmented Neutrophils 85 % (50-85); Total Cells Counted 97
[2018-11-30 05:04] LABS: Platelet Estimate Normal
[2018-11-30 05:06] LABS: Target Cells 1+
[2018-11-30] MEDS ORDERED: HYDROmorphone 2 MG/1 ML VIAL IV ONE (05:30)
[2018-11-30] MEDS: PIPERACILLIN/TAZOBACTAM 3,375 MG in SODIUM CHLORIDE 0.9% 100 ML IV SCH ×2 (06:01→13:57)
[2018-11-30] MEDS: IBUPROFEN 600 MG TABLET PO PRN (07:05)
[2018-11-30] MEDS: hydrOXYzine HCL 25 MG TABLET PO SCH ×3 (07:05→17:50)
[2018-11-30] MEDS: PANTOPRAZOLE 40 MG TABLET PO SCH (09:10)
[2018-11-30] MEDS: FERROUS SULFATE 325 MG TABLET PO SCH (09:10)
[2018-11-30] MEDS: oxyCODONE/ACETAMINOPHEN 5-325 MG TABLET PO PRN ×2 (10:33→16:45)
[2018-12-01] MEDS: FERROUS SULFATE 325 MG TABLET PO SCH ×3 (01:18→21:01)
[2018-12-01] MEDS: hydrOXYzine HCL 25 MG TABLET PO SCH ×4 (01:18→17:10)
[2018-12-01] MEDS: HYDROmorphone 2 MG/1 ML VIAL IV PRN ×7 (01:19→20:58)
[2018-12-01] MEDS: PIPERACILLIN/TAZOBACTAM 3,375 MG in SODIUM CHLORIDE 0.9% 100 ML IV SCH ×4 (01:19→20:59)
[2018-12-01 04:18] LABS: Basophils # 0.1 10*3/uL (0.0-0.2); Basophils % 0.7 % (0.0-0.8); Eosinophils # 0.1 10*3/uL (0.0-0.87); Eosinophils % 0.7 % (0.00-10.9); Hematocrit 28.8 VOL% (42.0-52.0); Hemoglobin 9.3 GM/DL (14.0-18.0); Immature Granulocytes % 0.5 %; Immature Granulocytes Absolute 0.07 #; Lymphocytes # 0.9 10*3/uL (1.4-4.0); Lymphocytes % 6.6 % (21.2-54.2); Mean Corpuscular HGB Conc 32.3 GM/DL (32-36); Mean Corpuscular Volume 94.7 FL (87-102); Monocytes % 11.9 % (1.7-12.7); Neutrophils % 79.6 % (38.7-73.9); Platelet Count 291 T/CUMM (130-400); Red Blood Count 3.04 MC/CUMM (3.8-5.5); Red Cell Distribution Width 27.2 % (9.3-17.3); White Blood Count 13.4 T/CUMM (4-12)
[2018-12-01] MEDS: SODIUM CHLORIDE 0.9% 1,000 ML IV SCH ×2 (04:48→17:12)
[2018-12-01 04:53] LABS: Albumin 1.9 G/DL (3.4-5.0); Bilirubin,Total 9.4 MG/DL (0.2-1.0); Calcium 7.5 MG/DL (8.5-10.1); Osmolality,Calculated 271.8 MOS/KG (273-304); Total Protein 4.7 G/DL (6.4-8.3)
[2018-12-01 05:06] LABS: Hypochromasia Slight; Polychromasia Few
[2018-12-01] MEDS: LEVOFLOXACIN INJ 750 MG in PREMIX 1 EACH IV SCH (06:03)
[2018-12-01] MEDS: PANTOPRAZOLE 40 MG TABLET PO SCH (08:02)
[2018-12-02] MEDS: hydrOXYzine HCL 25 MG TABLET PO SCH ×6 (00:09→23:36)
[2018-12-02] MEDS: HYDROmorphone 2 MG/1 ML VIAL IV PRN ×8 (00:09→23:36)
[2018-12-02] MEDS: LEVOFLOXACIN INJ 750 MG in PREMIX 1 EACH IV SCH (02:08)
[2018-12-02 05:10] LABS: Basophils # 0.1 10*3/uL (0.0-0.2); Eosinophils # 0.1 10*3/uL (0.0-0.87); Eosinophils % 0.7 % (0.00-10.9); Hematocrit 33.7 VOL% (42.0-52.0); Hemoglobin 10.6 GM/DL (14.0-18.0); Immature Granulocytes % 0.8 %; Immature Granulocytes Absolute 0.09 #; Lymphocytes % 9.3 % (21.2-54.2); Mean Corpuscular HGB Conc 31.5 GM/DL (32-36); Mean Corpuscular Volume 95.5 FL (87-102); Mean Platelet Volume 11.3 FL (9.6-12.0); Monocytes % 14.1 % (1.7-12.7); Neutrophils % 74.1 % (38.7-73.9); Platelet Count 285 T/CUMM (130-400); Red Blood Count 3.53 MC/CUMM (3.8-5.5); Red Cell Distribution Width 27.2 % (9.3-17.3); White Blood Count 10.7 T/CUMM (4-12)
[2018-12-02 05:26] LABS: Bilirubin,Total 9.9 MG/DL (0.2-1.0); Calcium 7.6 MG/DL (8.5-10.1); Osmolality,Calculated 270.8 MOS/KG (273-304); Total Protein 5.4 G/DL (6.4-8.3)
[2018-12-02] MEDS: oxyCODONE/ACETAMINOPHEN 5-325 MG TABLET PO PRN ×3 (05:47→21:37)
[2018-12-02] MEDS: PIPERACILLIN/TAZOBACTAM 3,375 MG in SODIUM CHLORIDE 0.9% 100 ML IV SCH ×2 (05:47→12:59)
[2018-12-02] MEDS: SODIUM CHLORIDE 0.9% 1,000 ML IV SCH (06:21)
[2018-12-02 06:25] LABS: Anisocytosis 1+; Hypochromasia 2+; Macrocytosis 1+; Platelet Estimate Normal; Target Cells 1+
[2018-12-02] MEDS: PANTOPRAZOLE 40 MG TABLET PO SCH (08:12)
[2018-12-02] MEDS: FERROUS SULFATE 325 MG TABLET PO SCH ×2 (08:12→20:09)
[2018-12-02] MEDS: fentaNYL 25 MCG/HR PATCH TRANSDERM SCH (14:00)
[2018-12-02] MEDS: AMPICILLIN INJ 2,000 MG in SODIUM CHLORIDE 0.9% 100 ML IV SCH ×3 (14:16→21:42)
[2018-12-02] MEDS: ONDANSETRON 4 MG/2 ML VIAL IV PRN (16:20)
[2018-12-03] MEDS: HYDROmorphone 2 MG/1 ML VIAL IV PRN ×5 (02:02→21:06)
[2018-12-03] MEDS: AMPICILLIN INJ 2,000 MG in SODIUM CHLORIDE 0.9% 100 ML IV SCH ×6 (02:03→21:41)
[2018-12-03] MEDS: oxyCODONE/ACETAMINOPHEN 5-325 MG TABLET PO PRN ×3 (04:31→16:00)
[2018-12-03] MEDS: SODIUM CHLORIDE 0.9% 1,000 ML IV SCH (04:32)
[2018-12-03] MEDS: hydrOXYzine HCL 25 MG TABLET PO SCH ×3 (05:29→18:00)
[2018-12-03] MEDS: ONDANSETRON 4 MG/2 ML VIAL IV PRN ×2 (09:50→14:13)
[2018-12-03] MEDS: FERROUS SULFATE 325 MG TABLET PO SCH ×2 (09:50→21:06)
[2018-12-03] MEDS: ALPRAZolam 0.25 MG TABLET PO SCH ×2 (12:48→21:06)
[2018-12-03] MEDS: PANTOPRAZOLE 40 MG TABLET PO SCH (12:48)
[2018-12-04] MEDS: hydrOXYzine HCL 25 MG TABLET PO SCH ×5 (00:31→23:23)
[2018-12-04] MEDS: oxyCODONE/ACETAMINOPHEN 5-325 MG TABLET PO PRN ×2 (01:17→16:17)
[2018-12-04] MEDS: HYDROmorphone 2 MG/1 ML VIAL IV PRN ×6 (01:29→21:47)
[2018-12-04] MEDS: AMPICILLIN INJ 2,000 MG in SODIUM CHLORIDE 0.9% 100 ML IV SCH ×6 (01:36→21:50)
[2018-12-04 05:12] LABS: Basophils # 0.1 10*3/uL (0.0-0.2); Basophils % 1.4 % (0.0-0.8); Eosinophils # 0.3 10*3/uL (0.0-0.87); Eosinophils % 3.5 % (0.00-10.9); Hematocrit 32.8 VOL% (42.0-52.0); Hemoglobin 10.1 GM/DL (14.0-18.0); Immature Granulocytes % 0.6 %; Immature Granulocytes Absolute 0.05 #; Lymphocytes # 0.8 10*3/uL (1.4-4.0); Lymphocytes % 8.7 % (21.2-54.2); Mean Corpuscular HGB Conc 30.8 GM/DL (32-36); Mean Corpuscular Volume 95.9 FL (87-102); Mean Platelet Volume 10.6 FL (9.6-12.0); Monocytes % 13.8 % (1.7-12.7); Platelet Count 291 T/CUMM (130-400); Red Blood Count 3.42 MC/CUMM (3.8-5.5); Red Cell Distribution Width 26.2 % (9.3-17.3); White Blood Count 8.9 T/CUMM (4-12)
[2018-12-04 05:25] LABS: Albumin 1.9 G/DL (3.4-5.0); Bilirubin,Total 8.9 MG/DL (0.2-1.0); Osmolality,Calculated 271.7 MOS/KG (273-304); Total Protein 5.6 G/DL (6.4-8.3)
[2018-12-04 05:42] LABS: Anisocytosis 1+; Microcytosis Slight
[2018-12-04 05:43] LABS: Target Cells Slight
[2018-12-04 05:44] LABS: Platelet Estimate Normal; Spherocytes Few
[2018-12-04] MEDS: SODIUM CHLORIDE 0.9% 1,000 ML IV SCH ×3 (05:44→13:47)
[2018-12-04] MEDS: PANTOPRAZOLE 40 MG TABLET PO SCH (09:52)
[2018-12-04] MEDS: FERROUS SULFATE 325 MG TABLET PO SCH ×2 (09:52→20:43)
[2018-12-04] MEDS: ALPRAZolam 0.25 MG TABLET PO SCH ×2 (09:52→20:43)
[2018-12-04] MEDS: cefTRIAXone 1,000 MG in SYRINGE 1 EACH IV SCH (16:04)
[2018-12-04] MEDS: IBUPROFEN 600 MG TABLET PO PRN (16:17)
[2018-12-05] MEDS: SODIUM CHLORIDE 0.9% 1,000 ML IV SCH ×2 (03:15→14:32)
[2018-12-05] MEDS: AMPICILLIN INJ 2,000 MG in SODIUM CHLORIDE 0.9% 100 ML IV SCH ×7 (03:16→22:19)
[2018-12-05] MEDS: cefTRIAXone 1,000 MG in SYRINGE 1 EACH IV SCH ×2 (03:17→17:14)
[2018-12-05] MEDS: HYDROmorphone 2 MG/1 ML VIAL IV PRN ×5 (03:19→22:20)
[2018-12-05] MEDS: hydrOXYzine HCL 25 MG TABLET PO SCH ×3 (06:00→17:14)
[2018-12-05] MEDS: FERROUS SULFATE 325 MG TABLET PO SCH ×3 (07:54→20:47)
[2018-12-05] MEDS: fentaNYL 25 MCG/HR PATCH TRANSDERM SCH ×2 (07:54→10:03)
[2018-12-05] MEDS: PANTOPRAZOLE 40 MG TABLET PO SCH ×2 (07:55→09:17)
[2018-12-05] MEDS: ALPRAZolam 0.25 MG TABLET PO SCH ×2 (09:56→20:47)
[2018-12-05] MEDS: oxyCODONE/ACETAMINOPHEN 5-325 MG TABLET PO PRN ×2 (09:59→17:13)
[2018-12-05] MEDS: IBUPROFEN 600 MG TABLET PO PRN (20:54)
[2018-12-06] MEDS: hydrOXYzine HCL 25 MG TABLET PO SCH ×6 (00:53→23:46)
[2018-12-06] MEDS: oxyCODONE/ACETAMINOPHEN 5-325 MG TABLET PO PRN ×3 (00:56→17:06)
[2018-12-06] MEDS: AMPICILLIN INJ 2,000 MG in SODIUM CHLORIDE 0.9% 100 ML IV SCH ×8 (02:15→22:07)
[2018-12-06] MEDS: SODIUM CHLORIDE 0.9% 1,000 ML IV SCH ×2 (02:15→17:08)
[2018-12-06] MEDS: HYDROmorphone 2 MG/1 ML VIAL IV PRN ×6 (02:16→23:47)
[2018-12-06] MEDS: cefTRIAXone 1,000 MG in SYRINGE 1 EACH IV SCH ×2 (03:20→15:15)
[2018-12-06 05:42] LABS: Basophils # 0.1 10*3/uL (0.0-0.2); Basophils % 2.1 % (0.0-0.8); Eosinophils # 0.3 10*3/uL (0.0-0.87); Eosinophils % 5.4 % (0.00-10.9); Hematocrit 31.9 VOL% (42.0-52.0); Hemoglobin 9.9 GM/DL (14.0-18.0); Immature Granulocytes % 1.1 %; Immature Granulocytes Absolute 0.07 #; Lymphocytes # 0.6 10*3/uL (1.4-4.0); Lymphocytes % 10.1 % (21.2-54.2); Mean Platelet Volume 10.8 FL (9.6-12.0); Monocytes % 17.5 % (1.7-12.7); Neutrophils % 63.8 % (38.7-73.9); Platelet Count 290 T/CUMM (130-400); Red Blood Count 3.29 MC/CUMM (3.8-5.5); Red Cell Distribution Width 26.8 % (9.3-17.3); White Blood Count 6.2 T/CUMM (4-12)
[2018-12-06 06:09] LABS: Albumin 1.7 G/DL (3.4-5.0); Calcium 7.6 MG/DL (8.5-10.1); Osmolality,Calculated 274.5 MOS/KG (273-304)
[2018-12-06 06:17] LABS: Band Neutrophils 2 % (0-10); Eosinophils 6 % (0-10); Lymphocytes 5 % (20-55); Segmented Neutrophils 75 % (50-85); Total Cells Counted 100
[2018-12-06 06:18] LABS: Anisocytosis 1+; Hypochromasia Slight; Platelet Estimate Normal; Target Cells 1+
[2018-12-06] MEDS: PANTOPRAZOLE 40 MG TABLET PO SCH (09:16)
[2018-12-06] MEDS: ALPRAZolam 0.25 MG TABLET PO SCH ×2 (09:16→22:07)
[2018-12-06] MEDS: FERROUS SULFATE 325 MG TABLET PO SCH ×2 (09:16→22:07)
[2018-12-06] MEDS: IBUPROFEN 600 MG TABLET PO PRN (15:01)
[2018-12-06] MEDS: APIXABAN 5 MG TABLET PO SCH ×2 (15:15→22:07)
[2018-12-07] MEDS: AMPICILLIN INJ 2,000 MG in SODIUM CHLORIDE 0.9% 100 ML IV SCH ×6 (02:17→21:58)
[2018-12-07] MEDS: oxyCODONE/ACETAMINOPHEN 5-325 MG TABLET PO PRN ×3 (02:39→20:29)
[2018-12-07] MEDS: cefTRIAXone 1,000 MG in SYRINGE 1 EACH IV SCH (03:46)
[2018-12-07] MEDS: HYDROmorphone 2 MG/1 ML VIAL IV PRN ×3 (04:14→12:12)
[2018-12-07] MEDS: hydrOXYzine HCL 25 MG TABLET PO SCH ×3 (05:51→18:10)
[2018-12-07] MEDS: SODIUM CHLORIDE 0.9% 1,000 ML IV SCH (05:55)
[2018-12-07] MEDS: IBUPROFEN 600 MG TABLET PO PRN (08:00)
[2018-12-07] MEDS: FERROUS SULFATE 325 MG TABLET PO SCH ×2 (08:00→20:29)
[2018-12-07] MEDS: ALPRAZolam 0.25 MG TABLET PO SCH ×2 (08:00→20:29)
[2018-12-07] MEDS: PANTOPRAZOLE 40 MG TABLET PO SCH (08:00)
[2018-12-07] MEDS: APIXABAN 5 MG TABLET PO SCH ×2 (08:00→20:29)
[2018-12-07] MEDS: cefTRIAXone 2,000 MG in SYRINGE 1 EACH IV SCH (15:01)
[2018-12-08] MEDS: hydrOXYzine HCL 25 MG TABLET PO SCH ×4 (01:02→17:49)
[2018-12-08] MEDS: AMPICILLIN INJ 2,000 MG in SODIUM CHLORIDE 0.9% 100 ML IV SCH ×6 (03:19→21:31)
[2018-12-08] MEDS: cefTRIAXone 2,000 MG in SYRINGE 1 EACH IV SCH ×2 (04:20→15:33)
[2018-12-08 04:34] LABS: Basophils # 0.1 10*3/uL (0.0-0.2); Basophils % 1.4 % (0.0-0.8); Eosinophils # 0.4 10*3/uL (0.0-0.87); Eosinophils % 4.8 % (0.00-10.9); Immature Granulocytes % 0.9 %; Immature Granulocytes Absolute 0.07 #; Lymphocytes # 1.1 10*3/uL (1.4-4.0); Lymphocytes % 14.3 % (21.2-54.2); Mean Corpuscular HGB Conc 31.3 GM/DL (32-36); Mean Corpuscular Volume 94.4 FL (87-102); Mean Platelet Volume 10.8 FL (9.6-12.0); Monocytes % 14.5 % (1.7-12.7); Neutrophils % 64.1 % (38.7-73.9); Platelet Count 386 T/CUMM (130-400); Red Blood Count 3.39 MC/CUMM (3.8-5.5); White Blood Count 7.8 T/CUMM (4-12)
[2018-12-08 05:03] LABS: Anisocytosis 1+
[2018-12-08 05:04] LABS: Microcytosis Slight; Spherocytes Few; Target Cells Slight
[2018-12-08 05:05] LABS: Platelet Estimate Normal
[2018-12-08 05:12] LABS: Albumin 1.6 G/DL (3.4-5.0); Bilirubin,Total 4.9 MG/DL (0.2-1.0); Calcium 7.4 MG/DL (8.5-10.1); Osmolality,Calculated 271.7 MOS/KG (273-304); Total Protein 4.8 G/DL (6.4-8.3)
[2018-12-08] MEDS: SODIUM CHLORIDE 0.9% 1,000 ML IV SCH (05:51)
[2018-12-08] MEDS: oxyCODONE/ACETAMINOPHEN 5-325 MG TABLET PO PRN ×3 (05:52→21:38)
[2018-12-08] MEDS: APIXABAN 5 MG TABLET PO SCH ×2 (08:40→21:32)
[2018-12-08] MEDS: ALPRAZolam 0.25 MG TABLET PO SCH ×2 (08:40→21:31)
[2018-12-08] MEDS: PANTOPRAZOLE 40 MG TABLET PO SCH (08:40)
[2018-12-08] MEDS: FERROUS SULFATE 325 MG TABLET PO SCH ×2 (08:40→21:32)
[2018-12-08] MEDS: fentaNYL 25 MCG/HR PATCH TRANSDERM SCH (08:40)
[2018-12-08] MEDS: IBUPROFEN 600 MG TABLET PO PRN (09:45)
[2018-12-08] MEDS: fentaNYL 50 MCG/HR PATCH TRANSDERM SCH (09:46)
[2018-12-09] MEDS: hydrOXYzine HCL 25 MG TABLET PO SCH ×4 (00:04→17:19)
[2018-12-09] MEDS: cefTRIAXone 2,000 MG in SYRINGE 1 EACH IV SCH ×2 (02:07→14:43)
[2018-12-09] MEDS: AMPICILLIN INJ 2,000 MG in SODIUM CHLORIDE 0.9% 100 ML IV SCH ×7 (02:08→22:18)
[2018-12-09] MEDS: oxyCODONE/ACETAMINOPHEN 5-325 MG TABLET PO PRN ×2 (05:31→12:14)
[2018-12-09] MEDS: SODIUM CHLORIDE 0.9% 1,000 ML IV SCH ×2 (05:33→17:22)
[2018-12-09] MEDS: APIXABAN 5 MG TABLET PO SCH ×2 (10:05→22:17)
[2018-12-09] MEDS: FERROUS SULFATE 325 MG TABLET PO SCH ×2 (10:05→22:16)
[2018-12-09] MEDS: PANTOPRAZOLE 40 MG TABLET PO SCH (10:05)
[2018-12-09] MEDS: ALPRAZolam 0.25 MG TABLET PO SCH ×2 (10:05→22:16)
[2018-12-10] MEDS: oxyCODONE/ACETAMINOPHEN 5-325 MG TABLET PO PRN ×4 (00:31→21:41)
[2018-12-10] MEDS: hydrOXYzine HCL 25 MG TABLET PO SCH ×5 (04:42→23:50)
[2018-12-10] MEDS: AMPICILLIN INJ 2,000 MG in SODIUM CHLORIDE 0.9% 100 ML IV SCH ×7 (05:07→21:43)
[2018-12-10] MEDS: cefTRIAXone 2,000 MG in SYRINGE 1 EACH IV SCH ×2 (05:11→15:26)
[2018-12-10 09:29] LABS: Albumin 1.5 G/DL (3.4-5.0); Bilirubin,Direct 3.87 MG/DL (0.0-0.20); Bilirubin,Indirect 0.6 MG/DL (0.0-1.0); Bilirubin,Total 4.5 MG/DL (0.2-1.0); Total Protein 5.1 G/DL (6.4-8.3)
[2018-12-10] MEDS: ALPRAZolam 0.25 MG TABLET PO SCH ×2 (09:40→21:41)
[2018-12-10] MEDS: APIXABAN 5 MG TABLET PO SCH ×2 (09:41→21:41)
[2018-12-10] MEDS: FERROUS SULFATE 325 MG TABLET PO SCH ×2 (09:41→21:41)
[2018-12-10] MEDS: PANTOPRAZOLE 40 MG TABLET PO SCH (09:41)
[2018-12-10] MEDS: SODIUM CHLORIDE 0.9% 1,000 ML IV SCH ×2 (09:46→12:59)
[2018-12-10] MEDS: IBUPROFEN 600 MG TABLET PO PRN (23:49)
[2018-12-11] MEDS: AMPICILLIN INJ 2,000 MG in SODIUM CHLORIDE 0.9% 100 ML IV SCH ×6 (02:12→22:24)
[2018-12-11] MEDS: oxyCODONE/ACETAMINOPHEN 5-325 MG TABLET PO PRN ×3 (03:48→15:48)
[2018-12-11] MEDS: cefTRIAXone 2,000 MG in SYRINGE 1 EACH IV SCH ×2 (03:49→14:40)
[2018-12-11 05:58] LABS: Basophils # 0.1 10*3/uL (0.0-0.2); Basophils % 1.9 % (0.0-0.8); Eosinophils # 0.6 10*3/uL (0.0-0.87); Eosinophils % 9.3 % (0.00-10.9); Hematocrit 35.2 VOL% (42.0-52.0); Hemoglobin 10.6 GM/DL (14.0-18.0); Immature Granulocytes % 0.6 %; Immature Granulocytes Absolute 0.04 #; Lymphocytes % 14.3 % (21.2-54.2); Mean Corpuscular HGB Conc 30.1 GM/DL (32-36); Mean Corpuscular Volume 97.5 FL (87-102); Mean Platelet Volume 10.4 FL (9.6-12.0); Monocytes % 18.2 % (1.7-12.7); Neutrophils % 55.7 % (38.7-73.9); Platelet Count 405 T/CUMM (130-400); Red Blood Count 3.61 MC/CUMM (3.8-5.5); Red Cell Distribution Width 25.4 % (9.3-17.3); White Blood Count 6.8 T/CUMM (4-12)
[2018-12-11 06:12] LABS: Albumin 1.5 G/DL (3.4-5.0); Albumin 1.7 G/DL (3.4-5.0); Bilirubin,Direct 3.49 MG/DL (0.0-0.20); Bilirubin,Indirect 0.7 MG/DL (0.0-1.0); Bilirubin,Total 4.2 MG/DL (0.2-1.0); Calcium 7.8 MG/DL (8.5-10.1); Osmolality,Calculated 275.5 MOS/KG (273-304); Total Protein 4.9 G/DL (6.4-8.3); Total Protein 5.1 G/DL (6.4-8.3)
[2018-12-11 06:31] LABS: Band Neutrophils 1 % (0-10); Eosinophils 9 % (0-10); Hypochromasia Slight; Lymphocytes 11 % (20-55); Metamyelocytes 3 %; Myelocytes 2 %; Platelet Estimate Normal; Polychromasia Few; Segmented Neutrophils 67 % (50-85); Target Cells Few; Total Cells Counted 100
[2018-12-11] MEDS: hydrOXYzine HCL 25 MG TABLET PO SCH ×4 (06:45→23:35)
[2018-12-11] MEDS ORDERED: FUROSEMIDE 40 MG TABLET PO ONE (09:06)
[2018-12-11] MEDS ORDERED: SPIRONOLACTONE 25 MG TABLET PO ONE (09:07)
[2018-12-11] MEDS: SODIUM CHLORIDE 0.9% 1,000 ML IV SCH (09:15)
[2018-12-11] MEDS: fentaNYL 50 MCG/HR PATCH TRANSDERM SCH (09:32)
[2018-12-11] MEDS: APIXABAN 5 MG TABLET PO SCH ×2 (09:34→20:30)
[2018-12-11] MEDS: FERROUS SULFATE 325 MG TABLET PO SCH ×2 (09:34→20:30)
[2018-12-11] MEDS: PANTOPRAZOLE 40 MG TABLET PO SCH (09:34)
[2018-12-12] MEDS: oxyCODONE/ACETAMINOPHEN 5-325 MG TABLET PO PRN ×4 (01:41→23:35)
[2018-12-12] MEDS: AMPICILLIN INJ 2,000 MG in SODIUM CHLORIDE 0.9% 100 ML IV SCH ×6 (03:10→22:38)
[2018-12-12] MEDS: cefTRIAXone 2,000 MG in SYRINGE 1 EACH IV SCH ×2 (04:02→16:15)
[2018-12-12] MEDS: hydrOXYzine HCL 25 MG TABLET PO SCH ×4 (05:36→23:35)
[2018-12-12] MEDS: PANTOPRAZOLE 40 MG TABLET PO SCH (08:31)
[2018-12-12] MEDS: FERROUS SULFATE 325 MG TABLET PO SCH ×2 (08:31→20:28)
[2018-12-12] MEDS: APIXABAN 5 MG TABLET PO SCH ×2 (08:31→20:28)
[2018-12-12] MEDS: FUROSEMIDE 40 MG/4 ML VIAL IV SCH (16:11)
[2018-12-12] MEDS: SPIRONOLACTONE 25 MG TABLET PO SCH ×2 (16:16→21:51)
[2018-12-12] MEDS: POTASSIUM CHLORIDE 20 MEQ TABLET PO SCH ×2 (16:16→20:28)
[2018-12-13] MEDS: cefTRIAXone 2,000 MG in SYRINGE 1 EACH IV SCH ×2 (02:16→15:48)
[2018-12-13] MEDS: AMPICILLIN INJ 2,000 MG in SODIUM CHLORIDE 0.9% 100 ML IV SCH ×6 (02:22→22:29)
[2018-12-13 05:33] LABS: Basophils # 0.2 10*3/uL (0.0-0.2); Basophils % 2.1 % (0.0-0.8); Eosinophils # 0.5 10*3/uL (0.0-0.87); Eosinophils % 5.6 % (0.00-10.9); Hematocrit 33.5 VOL% (42.0-52.0); Hemoglobin 10.4 GM/DL (14.0-18.0); Immature Granulocytes % 0.5 %; Immature Granulocytes Absolute 0.04 #; Lymphocytes # 2.6 10*3/uL (1.4-4.0); Lymphocytes % 31.7 % (21.2-54.2); Mean Corpuscular Volume 95.4 FL (87-102); Mean Platelet Volume 10.7 FL (9.6-12.0); Monocytes % 19.7 % (1.7-12.7); Neutrophils % 40.4 % (38.7-73.9); Platelet Count 362 T/CUMM (130-400); Red Blood Count 3.51 MC/CUMM (3.8-5.5); Red Cell Distribution Width 25.2 % (9.3-17.3); White Blood Count 8.3 T/CUMM (4-12)
[2018-12-13] MEDS: hydrOXYzine HCL 25 MG TABLET PO SCH ×3 (05:47→19:03)
[2018-12-13 06:00] LABS: Eosinophils 5 % (0-10); Hypochromasia 1+; Lymphocytes 17 % (20-55); Ovalocytes Slight; Platelet Estimate Adequate; Segmented Neutrophils 56 % (50-85); Total Cells Counted 100
[2018-12-13 06:03] LABS: Albumin 1.5 G/DL (3.4-5.0); Bilirubin,Total 3.7 MG/DL (0.2-1.0); Calcium 7.6 MG/DL (8.5-10.1); Osmolality,Calculated 270.8 MOS/KG (273-304); Total Protein 4.8 G/DL (6.4-8.3)
[2018-12-13] MEDS: oxyCODONE/ACETAMINOPHEN 5-325 MG TABLET PO PRN ×3 (08:50→22:31)
[2018-12-13] MEDS: FUROSEMIDE 40 MG/4 ML VIAL IV SCH ×2 (08:52→15:53)
[2018-12-13] MEDS: SPIRONOLACTONE 25 MG TABLET PO SCH ×2 (08:53→22:26)
[2018-12-13] MEDS: APIXABAN 5 MG TABLET PO SCH ×2 (08:54→22:26)
[2018-12-13] MEDS: FERROUS SULFATE 325 MG TABLET PO SCH ×2 (08:54→22:27)
[2018-12-13] MEDS: POTASSIUM CHLORIDE 20 MEQ TABLET PO SCH ×2 (08:55→22:27)
[2018-12-13] MEDS: PANTOPRAZOLE 40 MG TABLET PO SCH (08:55)
[2018-12-13] MEDS: FLUCONAZOLE 200 MG TABLET PO SCH (16:28)
[2018-12-14] MEDS: IBUPROFEN 600 MG TABLET PO PRN (00:43)
[2018-12-14] MEDS: hydrOXYzine HCL 25 MG TABLET PO SCH ×4 (00:44→17:34)
[2018-12-14] MEDS: cefTRIAXone 2,000 MG in SYRINGE 1 EACH IV SCH ×2 (02:24→15:54)
[2018-12-14] MEDS: AMPICILLIN INJ 2,000 MG in SODIUM CHLORIDE 0.9% 100 ML IV SCH ×6 (02:28→17:34)
[2018-12-14] MEDS: oxyCODONE/ACETAMINOPHEN 5-325 MG TABLET PO PRN ×3 (04:32→17:39)
[2018-12-14] MEDS: FLUCONAZOLE 200 MG TABLET PO SCH (09:13)
[2018-12-14] MEDS: POTASSIUM CHLORIDE 20 MEQ TABLET PO SCH ×2 (09:14→20:40)
[2018-12-14] MEDS: ONDANSETRON 4 MG/2 ML VIAL IV PRN (09:14)
[2018-12-14] MEDS: FUROSEMIDE 40 MG/4 ML VIAL IV SCH ×2 (09:14→15:55)
[2018-12-14] MEDS: PANTOPRAZOLE 40 MG TABLET PO SCH (09:14)
[2018-12-14] MEDS: FERROUS SULFATE 325 MG TABLET PO SCH ×2 (09:14→20:40)
[2018-12-14] MEDS: SPIRONOLACTONE 25 MG TABLET PO SCH ×2 (09:14→20:40)
[2018-12-14] MEDS: APIXABAN 5 MG TABLET PO SCH ×2 (09:15→20:40)
[2018-12-14] MEDS: fentaNYL 50 MCG/HR PATCH TRANSDERM SCH (09:19)
[2018-12-15] MEDS: AMPICILLIN INJ 2,000 MG in SODIUM CHLORIDE 0.9% 100 ML IV SCH ×7 (00:04→21:42)
[2018-12-15] MEDS: oxyCODONE/ACETAMINOPHEN 5-325 MG TABLET PO PRN ×4 (00:06→21:24)
[2018-12-15] MEDS: hydrOXYzine HCL 25 MG TABLET PO SCH ×4 (00:07→18:35)
[2018-12-15 05:40] LABS: Basophils # 0.1 10*3/uL (0.0-0.2); Basophils % 1.9 % (0.0-0.8); Eosinophils # 0.3 10*3/uL (0.0-0.87); Eosinophils % 3.3 % (0.00-10.9); Hematocrit 37.1 VOL% (42.0-52.0); Hemoglobin 11.7 GM/DL (14.0-18.0); Immature Granulocytes % 0.4 %; Immature Granulocytes Absolute 0.03 #; Lymphocytes # 2.2 10*3/uL (1.4-4.0); Lymphocytes % 29.5 % (21.2-54.2); Mean Corpuscular HGB Conc 31.5 GM/DL (32-36); Mean Corpuscular Volume 96.1 FL (87-102); Mean Platelet Volume 11.6 FL (9.6-12.0); Monocytes % 14.3 % (1.7-12.7); Neutrophils % 50.6 % (38.7-73.9); Platelet Count 353 T/CUMM (130-400); Red Blood Count 3.86 MC/CUMM (3.8-5.5); Red Cell Distribution Width 24.8 % (9.3-17.3); White Blood Count 7.5 T/CUMM (4-12)
[2018-12-15 06:13] LABS: Hypochromasia 1+; Platelet Estimate Adequate
[2018-12-15 06:18] LABS: Albumin 1.7 G/DL (3.4-5.0); Bilirubin,Direct 2.69 MG/DL (0.0-0.20); Bilirubin,Indirect 1.3 MG/DL (0.0-1.0); Osmolality,Calculated 271.8 MOS/KG (273-304); Total Protein 5.6 G/DL (6.4-8.3)
[2018-12-15] MEDS: FUROSEMIDE 40 MG/4 ML VIAL IV SCH ×2 (09:11→16:16)
[2018-12-15] MEDS: POTASSIUM CHLORIDE 20 MEQ TABLET PO SCH ×2 (09:13→21:23)
[2018-12-15] MEDS: FERROUS SULFATE 325 MG TABLET PO SCH ×2 (09:13→21:25)
[2018-12-15] MEDS: SPIRONOLACTONE 25 MG TABLET PO SCH ×2 (09:13→21:23)
[2018-12-15] MEDS: APIXABAN 5 MG TABLET PO SCH ×2 (09:13→21:23)
[2018-12-15] MEDS: PANTOPRAZOLE 40 MG TABLET PO SCH (09:13)
[2018-12-15] MEDS: cefTRIAXone 2,000 MG in SYRINGE 1 EACH IV SCH ×2 (09:15→21:22)
[2018-12-16] MEDS: hydrOXYzine HCL 25 MG TABLET PO SCH ×4 (01:11→17:59)
[2018-12-16] MEDS: AMPICILLIN INJ 2,000 MG in SODIUM CHLORIDE 0.9% 100 ML IV SCH ×2 (01:44→05:41)
[2018-12-16] MEDS: oxyCODONE/ACETAMINOPHEN 5-325 MG TABLET PO PRN ×3 (02:54→20:25)
[2018-12-16 06:58] LABS: Basophils # 0.2 10*3/uL (0.0-0.2); Basophils % 1.8 % (0.0-0.8); Eosinophils # 0.2 10*3/uL (0.0-0.87); Eosinophils % 2.6 % (0.00-10.9); Hematocrit 35.7 VOL% (42.0-52.0); Immature Granulocytes % 0.4 %; Immature Granulocytes Absolute 0.04 #; Lymphocytes # 2.9 10*3/uL (1.4-4.0); Lymphocytes % 32.4 % (21.2-54.2); Mean Corpuscular HGB Conc 30.8 GM/DL (32-36); Mean Corpuscular Volume 97.3 FL (87-102); Mean Platelet Volume 11.3 FL (9.6-12.0); Monocytes % 16.2 % (1.7-12.7); Neutrophils % 46.6 % (38.7-73.9); Platelet Count 360 T/CUMM (130-400); Red Blood Count 3.67 MC/CUMM (3.8-5.5); Red Cell Distribution Width 24.8 % (9.3-17.3)
[2018-12-16 07:24] LABS: Anisocytosis 1+; Band Neutrophils 19 % (0-10); Lymphocytes 10 % (20-55); Macrocytosis 1+; Platelet Estimate Normal; Segmented Neutrophils 54 % (50-85); Target Cells Few; Total Cells Counted 100
[2018-12-16 07:30] LABS: Albumin 1.7 G/DL (3.4-5.0); Bilirubin,Direct 2.98 MG/DL (0.0-0.20); Total Protein 5.4 G/DL (6.4-8.3)
[2018-12-16] MEDS: POTASSIUM CHLORIDE 20 MEQ TABLET PO SCH ×2 (09:07→20:25)
[2018-12-16] MEDS: APIXABAN 5 MG TABLET PO SCH ×2 (09:07→20:25)
[2018-12-16] MEDS: FERROUS SULFATE 325 MG TABLET PO SCH ×2 (09:07→20:24)
[2018-12-16] MEDS: SPIRONOLACTONE 25 MG TABLET PO SCH ×2 (09:08→20:24)
[2018-12-16] MEDS: FUROSEMIDE 40 MG/4 ML VIAL IV SCH ×2 (09:08→17:13)
[2018-12-16] MEDS: PANTOPRAZOLE 40 MG TABLET PO SCH (09:08)
[2018-12-16] MEDS: cefTRIAXone 2,000 MG in SYRINGE 1 EACH IV SCH (09:15)
[2018-12-16] MEDS: AMOXICILLIN 500 MG CAPSULE PO SCH ×2 (17:10→20:24)
[2018-12-17] MEDS: hydrOXYzine HCL 25 MG TABLET PO SCH ×2 (00:26→05:40)
[2018-12-17] MEDS: oxyCODONE/ACETAMINOPHEN 5-325 MG TABLET PO PRN ×2 (03:39→09:09)
[2018-12-17 05:22] LABS: Basophils # 0.1 10*3/uL (0.0-0.2); Basophils % 1.4 % (0.0-0.8); Eosinophils # 0.3 10*3/uL (0.0-0.87); Hematocrit 34.6 VOL% (42.0-52.0); Hemoglobin 10.7 GM/DL (14.0-18.0); Immature Granulocytes % 0.4 %; Immature Granulocytes Absolute 0.04 #; Lymphocytes # 3.3 10*3/uL (1.4-4.0); Lymphocytes % 36.9 % (21.2-54.2); Mean Corpuscular HGB Conc 30.9 GM/DL (32-36); Mean Corpuscular Volume 96.6 FL (87-102); Mean Platelet Volume 10.6 FL (9.6-12.0); Monocytes % 20.6 % (1.7-12.7); Neutrophils % 37.7 % (38.7-73.9); Platelet Count 324 T/CUMM (130-400); Red Blood Count 3.58 MC/CUMM (3.8-5.5); Red Cell Distribution Width 24.1 % (9.3-17.3)
[2018-12-17 05:39] LABS: Albumin 1.8 G/DL (3.4-5.0); Bilirubin,Direct 2.9 MG/DL (0.0-0.20); Bilirubin,Indirect 0.7 MG/DL (0.0-1.0); Bilirubin,Total 3.6 MG/DL (0.2-1.0); Calcium 8.1 MG/DL (8.5-10.1); Osmolality,Calculated 265.2 MOS/KG (273-304); Total Protein 5.6 G/DL (6.4-8.3)
[2018-12-17] MEDS: IBUPROFEN 600 MG TABLET PO PRN (05:39)
[2018-12-17 05:56] LABS: Eosinophils 5 % (0-10); Hypochromasia 1+; Lymphocytes 28 % (20-55); Metamyelocytes 3 %; Microcytosis 1+; Misc Morphology 1; Pappenheimer Bodies 1+; Platelet Estimate Normal; Segmented Neutrophils 52 % (50-85); Total Cells Counted 100
[2018-12-17 05:57] LABS: Polychromasia Few; Target Cells Few
[2018-12-17 07:31] VITALS: BP 114/60
[2018-12-17] MEDS: PANTOPRAZOLE 40 MG TABLET PO SCH (09:08)
[2018-12-17] MEDS: AMOXICILLIN 500 MG CAPSULE PO SCH (09:08)
[2018-12-17] MEDS: POTASSIUM CHLORIDE 20 MEQ TABLET PO SCH (09:08)
[2018-12-17] MEDS: APIXABAN 5 MG TABLET PO SCH (09:09)
[2018-12-17] MEDS: FERROUS SULFATE 325 MG TABLET PO SCH (09:09)
[2018-12-17] MEDS: FUROSEMIDE 40 MG/4 ML VIAL IV SCH (09:09)
[2018-12-17] MEDS: fentaNYL 50 MCG/HR PATCH TRANSDERM SCH (09:10)
[2018-12-17] MEDS: SPIRONOLACTONE 25 MG TABLET PO SCH (09:13)
== END 2018-12-17 13:00 | disposition home or self-care (01) | DRG 441 ==
LOC: N.ED 18:43 → N.EDINP 22:24 → SUATTDRO 22:24 → N.5E 23:30
PROVIDERS: ADMIT Hospitalist; ATTEND Internal Medicine

== ENCOUNTER 2019-01-06 01:50 | Observation (INO) ==
[2019-01-06 02:33] LABS: Basophils # 0.1 10*3/uL (0.0-0.2); Basophils % 0.8 % (0.0-0.8); Eosinophils # 0.1 10*3/uL (0.0-0.87); Eosinophils % 1.1 % (0.00-10.9); Hemoglobin 12.7 GM/DL (14.0-18.0); Immature Granulocytes % 0.3 %; Immature Granulocytes Absolute 0.03 #; Lymphocytes % 31.9 % (21.2-54.2); Mean Corpuscular HGB Conc 32.6 GM/DL (32-36); Mean Platelet Volume 10.2 FL (9.6-12.0); Monocytes % 13.7 % (1.7-12.7); Neutrophils % 52.2 % (38.7-73.9); Platelet Count 252 T/CUMM (130-400); Red Blood Count 4.02 MC/CUMM (3.8-5.5); Red Cell Distribution Width 18.8 % (9.3-17.3); White Blood Count 9.3 T/CUMM (4-12)
[2019-01-06 02:41] LABS: INR 1.2; Partial Thromboplastin Time 33.3 SECS (0-40)
[2019-01-06 03:09] LABS: Albumin 2.2 G/DL (3.4-5.0); Bilirubin,Total 3.9 MG/DL (0.2-1.0); Calcium 8.2 MG/DL (8.5-10.1); Total Protein 7.6 G/DL (6.4-8.3)
[2019-01-06] MEDS ORDERED: SODIUM CHLORIDE 0.9% 500 ML IV STA (04:16)
[2019-01-06] MEDS ORDERED: PANTOPRAZOLE 40 MG VIAL IV STA (04:16)
[2019-01-06] MEDS ORDERED: HYDROmorphone 2 MG/1 ML VIAL IV STA (04:16)
[2019-01-06] MEDS ORDERED: ONDANSETRON 4 MG/2 ML VIAL IV STA (04:16)
[2019-01-06 05:27] LABS: Amylase 20 U/L (25-115)
[2019-01-06] MEDS ORDERED: PROMETHAZINE 25 MG/1 ML VIAL IM PRN (06:25)
[2019-01-06] MEDS ORDERED: NICOTINE 21 MG/24 HR PATCH TRANSDERM PRN (06:25)
[2019-01-06] MEDS: HYDROmorphone 2 MG/1 ML VIAL IV PRN ×4 (07:24→22:45)
[2019-01-06] MEDS: ONDANSETRON 4 MG/2 ML VIAL IV PRN ×2 (13:10→17:58)
[2019-01-06] MEDS: ENOXAPARIN 40 MG/0.4 ML SYRINGE SUBCUT SCH (19:08)
[2019-01-06 23:24] LABS: Apearance,Urine CLEAR (Clear); Bilirubin,Urine Negative (Negative); Blood, Urine Negative (Negative); Glucose,Urine (UA) Negative (Negative); Ketones,Urine Negative (Negative); Mucus,Urine Occasional /LPF (Occasional); Nitrite,Urine Negative (Negative); Protein,Urine Negative; RBC,Urine <1 /HPF (0-4); Urine Color Yellow (Yellow); Urine Specific Gravity 1.009 (1.001-1.035); Urine Urobilinogen < 2.0 EU/DL (0.2-1.0); WBC,Urine 1 /HPF (0-6)
[2019-01-07] MEDS: HYDROmorphone 2 MG/1 ML VIAL IV PRN ×5 (03:08→14:18)
[2019-01-07] MEDS ORDERED: HYDROmorphone 2 MG/1 ML VIAL IV PRN (16:42)
[2019-01-07] MEDS ORDERED: fentaNYL 50 MCG/HR PATCH TRANSDERM SCH (17:00)
[2019-01-07] MEDS: oxyCODONE/ACETAMINOPHEN 5-325 MG TABLET PO PRN ×2 (17:09→23:16)
[2019-01-07] MEDS: ENOXAPARIN 40 MG/0.4 ML SYRINGE SUBCUT SCH (18:58)
[2019-01-08] MEDS: oxyCODONE/ACETAMINOPHEN 5-325 MG TABLET PO PRN (07:25)
[2019-01-08 07:59] VITALS: BP 160/72
== END 2019-01-08 13:30 | disposition home or self-care (01) ==
LOC: N.EDINP 01:50 → N.ED 01:50 → N.EDINP 11:35 → N.5E 11:49
PROVIDERS: ADMIT Internal Medicine; ATTEND Internal Medicine

== ENCOUNTER 2020-07-30 13:44 | Inpatient (IN) ==
[2020-07-30 15:57] LABS: Basophils # 0.1 10*3/uL (0.0-0.2); Basophils % 0.8 % (0.0-0.8); Eosinophils % 0.1 % (0.00-10.9); Hematocrit 45.7 VOL% (42.0-52.0); Hemoglobin 15.6 GM/DL (14.0-18.0); Immature Granulocytes % 0.5 %; Immature Granulocytes Absolute 0.06 #; Lymphocytes # 2.3 10*3/uL (1.4-4.0); Lymphocytes % 17.6 % (21.2-54.2); Mean Corpuscular HGB Conc 34.1 GM/DL (32-36); Mean Corpuscular Volume 104.1 FL (87-102); Mean Platelet Volume 11.8 FL (9.6-12.0); Monocytes % 14.8 % (1.7-12.7); Neutrophils % 66.2 % (38.7-73.9); Platelet Count 232 T/CUMM (130-400); Red Blood Count 4.39 MC/CUMM (3.8-5.5); Red Cell Distribution Width 14.1 % (9.3-17.3); White Blood Count 12.8 T/CUMM (4-12)
[2020-07-30 16:21] LABS: Albumin 2.9 G/DL (3.4-5.0); Calcium 9.1 MG/DL (8.5-10.1); Osmolality,Calculated 278.7 MOS/KG (273-304); Total Protein 7.8 G/DL (6.4-8.3)
[2020-07-30 16:29] LABS: Band Neutrophils 1 % (0-10); Lymphocytes 12 % (20-55); Segmented Neutrophils 75 % (50-85); Total Cells Counted 100
[2020-07-30 16:30] LABS: Macrocytosis 2+; Platelet Estimate Adequate
[2020-07-30] MEDS ORDERED: PIPERACILLIN/TAZOBACTAM 3,375 MG VIAL IV ONE (17:13)
[2020-07-30] MEDS ORDERED: SODIUM CHLORIDE 0.9% 1,000 ML IV STA (17:16)
[2020-07-30] MEDS ORDERED: PIPERACILLIN/TAZOBACTAM 3,375 MG in SODIUM CHLORIDE 0.9% 100 ML IV STA (17:17)
[2020-07-30] MEDS ORDERED: GLUCAGON 1 MG VIAL IM PRN (17:27)
[2020-07-30] MEDS ORDERED: SODIUM CHLORIDE 0.9% 2,300 ML IV ONE (17:27)
[2020-07-30] MEDS ORDERED: hydrALAZINE 20 MG/1 ML VIAL IV PRN (17:27)
[2020-07-30] MEDS ORDERED: ONDANSETRON 4 MG/2 ML VIAL IV PRN (17:27)
[2020-07-30] MEDS ORDERED: DEXTROSE 50% 25 GM/50 ML VIAL IV PRN (17:27)
[2020-07-30] MEDS: MORPHINE 4 MG/1 ML VIAL IV PRN ×2 (19:23→23:27)
[2020-07-30] MEDS: SODIUM CHLORIDE 0.9% 1,000 ML IV SCH (23:37)
[2020-07-31] MEDS: PIPERACILLIN/TAZOBACTAM 3,375 MG in SODIUM CHLORIDE 0.9% 100 ML IV SCH ×3 (01:14→20:51)
[2020-07-31] MEDS: LACTULOSE 20 GM/30 ML UDCUP PO SCH ×8 (01:41→20:51)
[2020-07-31] MEDS: MORPHINE 4 MG/1 ML VIAL IV PRN ×5 (03:34→23:40)
[2020-07-31 05:22] LABS: Bilirubin,Urine Negative (Negative); Blood, Urine Negative (Negative); Calcium Oxalate Crystals,Urine Occasional /HPF (Few); Glucose,Urine (UA) Negative (Negative); Hyaline Casts,Urine 3 /LPF (0-3); Ketones,Urine Negative (Negative); Mucus,Urine Occasional /LPF (Occasional); Nitrite,Urine Negative (Negative); Protein,Urine 30 MG/DL; RBC,Urine 3 /HPF (0-4); Squamous Epithelial Cell,Urine Occasional /HPF (0-10); Urine Appearance CLEAR (Clear); Urine Color Amber (Yellow); Urine Specific Gravity 1.028 (1.001-1.035); Urine Urobilinogen < 2.0 EU/DL (0.2-1.0); WBC,Urine <1 /HPF (0-6)
[2020-07-31 05:40] LABS: Basophils # 0.1 10*3/uL (0.0-0.2); Basophils % 1.3 % (0.0-0.8); Eosinophils # 0.3 10*3/uL (0.0-0.87); Eosinophils % 3.1 % (0.00-10.9); Hematocrit 40.9 VOL% (42.0-52.0); Hemoglobin 14.3 GM/DL (14.0-18.0); Immature Granulocytes % 0.2 %; Immature Granulocytes Absolute 0.02 #; Lymphocytes # 4.8 10*3/uL (1.4-4.0); Lymphocytes % 43.3 % (21.2-54.2); Mean Corpuscular Volume 102.3 FL (87-102); Monocytes % 16.3 % (1.7-12.7); Neutrophils % 35.8 % (38.7-73.9); Platelet Count 193 T/CUMM (130-400); Red Cell Distribution Width 13.6 % (9.3-17.3); White Blood Count 11.1 T/CUMM (4-12)
[2020-07-31 06:01] LABS: Albumin 2.5 G/DL (3.4-5.0); Bilirubin,Total 1.2 MG/DL (0.2-1.0); Calcium 8.2 MG/DL (8.5-10.1); Osmolality,Calculated 276.5 MOS/KG (273-304); Risk Ratio 3.14; Thyroid Stimulating Hormone 3.36 uIU/ml (0.358-3.74); Total Protein 6.8 G/DL (6.4-8.3); VLDL CHOLESTEROL 22.4 MG/DL
[2020-07-31] MEDS: ENOXAPARIN 40 MG/0.4 ML SYRINGE SUBCUT SCH ×2 (07:14→19:42)
[2020-07-31 08:15] LABS: Band Neutrophils 1 % (0-10); Lymphocytes 30 % (20-55); Platelet Estimate Adequate; Schistocytes Slight; Segmented Neutrophils 46 % (50-85); Target Cells Few; Total Cells Counted 100
[2020-07-31] MEDS: PANTOPRAZOLE 40 MG TABLET PO SCH (08:44)
[2020-07-31] MEDS: POTASSIUM CHLORIDE 20 MEQ TABLET PO PRN ×4 (09:22→15:36)
[2020-07-31] MEDS: SODIUM CHLORIDE 0.9% 1,000 ML IV SCH ×2 (15:10→15:11)
[2020-08-01] MEDS: LACTULOSE 20 GM/30 ML UDCUP PO SCH ×6 (01:37→20:21)
[2020-08-01] MEDS: MORPHINE 4 MG/1 ML VIAL IV PRN ×2 (03:47→23:08)
[2020-08-01] MEDS: PIPERACILLIN/TAZOBACTAM 3,375 MG in SODIUM CHLORIDE 0.9% 100 ML IV SCH ×3 (05:17→20:21)
[2020-08-01 06:17] LABS: Basophils # 0.1 10*3/uL (0.0-0.2); Basophils % 1.1 % (0.0-0.8); Eosinophils # 0.6 10*3/uL (0.0-0.87); Eosinophils % 4.7 % (0.00-10.9); Hematocrit 43.3 VOL% (42.0-52.0); Immature Granulocytes % 0.3 %; Immature Granulocytes Absolute 0.04 #; Lymphocytes % 51.4 % (21.2-54.2); Mean Corpuscular HGB Conc 34.6 GM/DL (32-36); Mean Corpuscular Volume 102.1 FL (87-102); Monocytes % 15.7 % (1.7-12.7); Neutrophils % 26.8 % (38.7-73.9); Platelet Count 217 T/CUMM (130-400); Red Blood Count 4.24 MC/CUMM (3.8-5.5); Red Cell Distribution Width 13.7 % (9.3-17.3); White Blood Count 11.7 T/CUMM (4-12)
[2020-08-01 06:49] LABS: Albumin 2.7 G/DL (3.4-5.0); Bilirubin,Total 1.6 MG/DL (0.2-1.0); Calcium 8.4 MG/DL (8.5-10.1); Osmolality,Calculated 276.4 MOS/KG (273-304)
[2020-08-01 07:41] LABS: Anisocytosis 1+; Atypical Lymphocytes Few; Band Neutrophils 2 % (0-10); Eosinophils 3 % (0-10); Lymphocytes 40 % (20-55); Macrocytosis 2+; Platelet Estimate Normal; Segmented Neutrophils 41 % (50-85); Total Cells Counted 100
[2020-08-01 07:42] LABS: Smudge Cells 2+; Target Cells Few
[2020-08-01] MEDS ORDERED: MAGNESIUM SULF RIDER 2 GM in PREMIX 1 EACH IV ONE (08:30)
[2020-08-01] MEDS: PANTOPRAZOLE 40 MG TABLET PO SCH (09:48)
[2020-08-01] MEDS: SODIUM CHLORIDE 0.9% 1,000 ML IV SCH (14:31)
[2020-08-01] MEDS: ENOXAPARIN 40 MG/0.4 ML SYRINGE SUBCUT SCH (17:17)
[2020-08-02] MEDS: LACTULOSE 20 GM/30 ML UDCUP PO SCH ×6 (02:00→20:17)
[2020-08-02] MEDS: PIPERACILLIN/TAZOBACTAM 3,375 MG in SODIUM CHLORIDE 0.9% 100 ML IV SCH ×3 (04:24→20:18)
[2020-08-02] MEDS: MORPHINE 4 MG/1 ML VIAL IV PRN ×4 (05:16→20:17)
[2020-08-02 05:34] LABS: Basophils # 0.2 10*3/uL (0.0-0.2); Eosinophils # 0.6 10*3/uL (0.0-0.87); Eosinophils % 6.6 % (0.00-10.9); Hematocrit 44.2 VOL% (42.0-52.0); Hemoglobin 15.5 GM/DL (14.0-18.0); Immature Granulocytes % 0.1 %; Immature Granulocytes Absolute 0.01 #; Lymphocytes % 55.5 % (21.2-54.2); Mean Corpuscular HGB Conc 35.1 GM/DL (32-36); Mean Corpuscular Volume 102.1 FL (87-102); Mean Platelet Volume 11.9 FL (9.6-12.0); Monocytes % 16.1 % (1.7-12.7); Neutrophils % 19.7 % (38.7-73.9); Platelet Count 232 T/CUMM (130-400); Red Blood Count 4.33 MC/CUMM (3.8-5.5); Red Cell Distribution Width 13.5 % (9.3-17.3); White Blood Count 8.9 T/CUMM (4-12)
[2020-08-02 06:10] LABS: Albumin 2.6 G/DL (3.4-5.0); Bilirubin,Total 1.5 MG/DL (0.2-1.0); Calcium 8.9 MG/DL (8.5-10.1); Osmolality,Calculated 278.3 MOS/KG (273-304); Total Protein 7.2 G/DL (6.4-8.3)
[2020-08-02] MEDS: PANTOPRAZOLE 40 MG TABLET PO SCH (08:03)
[2020-08-02 08:12] LABS: Anisocytosis 1+; Band Neutrophils 2 % (0-10); Eosinophils 3 % (0-10); Hypochromasia Slight; Lymphocytes 61 % (20-55); Macrocytosis 1+; Platelet Estimate Normal; Segmented Neutrophils 20 % (50-85); Target Cells 1+; Total Cells Counted 100
[2020-08-02] MEDS: ENOXAPARIN 40 MG/0.4 ML SYRINGE SUBCUT SCH (17:11)
[2020-08-03] MEDS: LACTULOSE 20 GM/30 ML UDCUP PO SCH ×4 (01:22→14:01)
[2020-08-03] MEDS: MORPHINE 4 MG/1 ML VIAL IV PRN ×3 (01:24→09:12)
[2020-08-03] MEDS: PIPERACILLIN/TAZOBACTAM 3,375 MG in SODIUM CHLORIDE 0.9% 100 ML IV SCH ×2 (05:12→14:01)
[2020-08-03 06:25] LABS: Albumin 2.7 G/DL (3.4-5.0); Bilirubin,Total 1.2 MG/DL (0.2-1.0); Calcium 8.9 MG/DL (8.5-10.1); Osmolality,Calculated 275.4 MOS/KG (273-304); Total Protein 7.2 G/DL (6.4-8.3)
[2020-08-03] MEDS: PANTOPRAZOLE 40 MG TABLET PO SCH (09:12)
[2020-08-03 15:48] VITALS: BP 148/85
== END 2020-08-03 16:14 | disposition home or self-care (01) | DRG 139 ==
LOC: N.ED 13:44 → SUATTDRO 17:27 → N.EDINP 17:27 → N.3E 18:50
PROVIDERS: ADMIT Family Medicine; ATTEND Internal Medicine

== ENCOUNTER 2020-09-18 00:39 | Inpatient (IN) ==
[2020-09-18] MEDS ORDERED: SODIUM CHLORIDE 0.9% 1,000 ML IV STA (01:05)
[2020-09-18] MEDS ORDERED: KETOROLAC 30 MG/1 ML VIAL IV STA (01:29)
[2020-09-18 01:34] LABS: Basophils # 0.1 10*3/uL (0.0-0.2); Basophils % 0.6 % (0.0-0.8); Eosinophils # 0.1 10*3/uL (0.0-0.87); Eosinophils % 0.9 % (0.00-10.9); Hematocrit 42.9 VOL% (42.0-52.0); Hemoglobin 14.4 GM/DL (14.0-18.0); Immature Granulocytes % 0.3 %; Immature Granulocytes Absolute 0.04 #; Lymphocytes # 5.1 10*3/uL (1.4-4.0); Lymphocytes % 32.6 % (21.2-54.2); Mean Corpuscular HGB Conc 33.6 GM/DL (32-36); Mean Corpuscular Volume 103.6 FL (87-102); Monocytes % 20.2 % (1.7-12.7); Neutrophils % 45.4 % (38.7-73.9); Platelet Count 215 T/CUMM (130-400); Red Blood Count 4.14 MC/CUMM (3.8-5.5); Red Cell Distribution Width 14.5 % (9.3-17.3); White Blood Count 15.8 T/CUMM (4-12)
[2020-09-18 01:55] LABS: Bilirubin,Total 1.8 MG/DL (0.2-1.0); Calcium 8.8 MG/DL (8.5-10.1); Osmolality,Calculated 270.8 MOS/KG (273-304); Potassium 3.7 MMOL/L (3.5-5.1); Total Protein 7.7 G/DL (6.4-8.3)
[2020-09-18] MEDS ORDERED: MORPHINE 4 MG/1 ML VIAL ONE (02:33)
[2020-09-18] MEDS ORDERED: MORPHINE 4 MG/1 ML VIAL IV STA (02:35)
[2020-09-18 02:46] LABS: Bilirubin,Urine Negative (Negative); Blood, Urine Negative (Negative); Glucose,Urine (UA) Negative (Negative); Hyaline Casts,Urine 40 /LPF (0-3); Ketones,Urine Negative (Negative); Mucus,Urine Occasional /LPF (Occasional); Nitrite,Urine Negative (Negative); Protein,Urine 30 MG/DL; RBC,Urine 3 /HPF (0-4); Squamous Epithelial Cell,Urine Occasional /HPF (0-10); Urine Appearance CLEAR (Clear); Urine Color Amber (Yellow); Urine Specific Gravity 1.027 (1.001-1.035); WBC,Urine 3 /HPF (0-6)
[2020-09-18 02:51] LABS: Lymphocytes 27 % (20-55); Segmented Neutrophils 59 % (50-85); Total Cells Counted 100
[2020-09-18 02:55] LABS: Hypochromasia 1+; Platelet Estimate Normal
[2020-09-18 02:56] LABS: Howell-Jolly Bodies Few
[2020-09-18] MEDS ORDERED: ONDANSETRON 4 MG/2 ML VIAL IV PRN (04:42)
[2020-09-18] MEDS ORDERED: DEXTROSE 50% 25 GM/50 ML VIAL IV PRN (04:42)
[2020-09-18] MEDS ORDERED: GLUCAGON 1 MG VIAL IM PRN (04:42)
[2020-09-18] MEDS: PIPERACILLIN/TAZOBACTAM 3,375 MG in SODIUM CHLORIDE 0.9% 100 ML IV SCH ×3 (05:50→20:40)
[2020-09-18] MEDS: HYDROmorphone 2 MG/1 ML VIAL IV PRN ×4 (05:50→23:07)
[2020-09-18] MEDS: SODIUM CHLORIDE 0.9% 1,000 ML IV SCH ×3 (07:32→23:20)
[2020-09-19] MEDS: HYDROmorphone 2 MG/1 ML VIAL IV PRN ×6 (04:32→20:42)
[2020-09-19] MEDS: PIPERACILLIN/TAZOBACTAM 3,375 MG in SODIUM CHLORIDE 0.9% 100 ML IV SCH ×3 (05:29→20:39)
[2020-09-19 06:30] LABS: Basophils # 0.1 10*3/uL (0.0-0.2); Basophils % 1.3 % (0.0-0.8); Eosinophils # 0.3 10*3/uL (0.0-0.87); Eosinophils % 3.7 % (0.00-10.9); Hematocrit 41.6 VOL% (42.0-52.0); Hemoglobin 13.4 GM/DL (14.0-18.0); Immature Granulocytes % 0.1 %; Immature Granulocytes Absolute 0.01 #; Lymphocytes # 3.7 10*3/uL (1.4-4.0); Lymphocytes % 47.2 % (21.2-54.2); Mean Corpuscular HGB Conc 32.2 GM/DL (32-36); Mean Corpuscular Volume 108.1 FL (87-102); Mean Platelet Volume 12.7 FL (9.6-12.0); Monocytes % 16.2 % (1.7-12.7); Neutrophils % 31.5 % (38.7-73.9); Platelet Count 201 T/CUMM (130-400); Red Blood Count 3.85 MC/CUMM (3.8-5.5); Red Cell Distribution Width 14.7 % (9.3-17.3); White Blood Count 7.8 T/CUMM (4-12)
[2020-09-19 06:56] LABS: Albumin 2.4 G/DL (3.4-5.0); Bilirubin,Total 2.3 MG/DL (0.2-1.0); Calcium 8.1 MG/DL (8.5-10.1); Osmolality,Calculated 278.3 MOS/KG (273-304); Potassium 3.9 MMOL/L (3.5-5.1); Total Protein 6.4 G/DL (6.4-8.3)
[2020-09-19 06:58] LABS: Eosinophils 6 % (0-10); Lymphocytes 45 % (20-55); Platelet Estimate Normal; Segmented Neutrophils 32 % (50-85); Total Cells Counted 100
[2020-09-19 06:59] LABS: Anisocytosis 2+; Macrocytosis 2+
[2020-09-19] MEDS: SODIUM CHLORIDE 0.9% 1,000 ML IV SCH ×3 (07:55→22:20)
[2020-09-20] MEDS: HYDROmorphone 2 MG/1 ML VIAL IV PRN ×6 (03:05→21:26)
[2020-09-20] MEDS: PIPERACILLIN/TAZOBACTAM 3,375 MG in SODIUM CHLORIDE 0.9% 100 ML IV SCH ×3 (04:58→21:30)
[2020-09-20] MEDS: SODIUM CHLORIDE 0.9% 1,000 ML IV SCH ×3 (06:20→22:43)
[2020-09-20] MEDS ORDERED: ACETAMINOPHEN 325 MG TABLET PO ONE (09:00)
[2020-09-21] MEDS: HYDROmorphone 2 MG/1 ML VIAL IV PRN ×8 (01:11→23:27)
[2020-09-21] MEDS: PIPERACILLIN/TAZOBACTAM 3,375 MG in SODIUM CHLORIDE 0.9% 100 ML IV SCH ×3 (05:55→20:21)
[2020-09-21] MEDS: SODIUM CHLORIDE 0.9% 1,000 ML IV SCH ×3 (06:51→22:01)
[2020-09-22] MEDS: HYDROmorphone 2 MG/1 ML VIAL IV PRN ×7 (03:16→22:29)
[2020-09-22] MEDS: PIPERACILLIN/TAZOBACTAM 3,375 MG in SODIUM CHLORIDE 0.9% 100 ML IV SCH ×2 (04:30→13:14)
[2020-09-22] MEDS: SODIUM CHLORIDE 0.9% 1,000 ML IV SCH ×3 (06:16→22:28)
[2020-09-22 10:51] LABS: Basophils # 0.1 10*3/uL (0.0-0.2); Eosinophils # 0.5 10*3/uL (0.0-0.87); Eosinophils % 6.2 % (0.00-10.9); Hematocrit 45.6 VOL% (42.0-52.0); Hemoglobin 15.3 GM/DL (14.0-18.0); Immature Granulocytes % 0.1 %; Immature Granulocytes Absolute 0.01 #; Lymphocytes # 4.2 10*3/uL (1.4-4.0); Lymphocytes % 53.8 % (21.2-54.2); Mean Corpuscular HGB Conc 33.6 GM/DL (32-36); Mean Corpuscular Volume 103.9 FL (87-102); Mean Platelet Volume 12.4 FL (9.6-12.0); Monocytes % 16.2 % (1.7-12.7); Neutrophils % 22.7 % (38.7-73.9); Platelet Count 259 T/CUMM (130-400); Red Blood Count 4.39 MC/CUMM (3.8-5.5); Red Cell Distribution Width 14.3 % (9.3-17.3); White Blood Count 7.9 T/CUMM (4-12)
[2020-09-22 11:10] LABS: Osmolality,Calculated 270.7 MOS/KG (273-304)
[2020-09-22] MEDS: CIPROFLOXACIN INJ 400 MG in PREMIX 1 EACH IV SCH (14:53)
[2020-09-23] MEDS: HYDROmorphone 2 MG/1 ML VIAL IV PRN ×3 (01:30→08:18)
[2020-09-23] MEDS: CIPROFLOXACIN INJ 400 MG in PREMIX 1 EACH IV SCH ×2 (02:55→14:43)
[2020-09-23] MEDS ORDERED: GENTAMICIN INJ 80 MG in PREMIX 1 EACH IV ONE (13:26)
[2020-09-23] MEDS: SODIUM CHLORIDE 0.9% 1,000 ML IV SCH ×2 (13:51→22:38)
[2020-09-24] MEDS: CIPROFLOXACIN INJ 400 MG in PREMIX 1 EACH IV SCH ×2 (03:09→15:38)
[2020-09-24] MEDS: SODIUM CHLORIDE 0.9% 1,000 ML IV SCH ×2 (07:49→15:33)
[2020-09-24] MEDS: DEXTROSE 5% NACL 0.45% 1,000 ML IV SCH (15:38)
[2020-09-24] MEDS: HYDROmorphone 2 MG/1 ML VIAL IV PRN (17:53)
[2020-09-25] MEDS: HYDROmorphone 2 MG/1 ML VIAL IV PRN ×3 (01:04→19:48)
[2020-09-25] MEDS: CIPROFLOXACIN INJ 400 MG in PREMIX 1 EACH IV SCH ×2 (03:05→15:16)
[2020-09-25] MEDS: DEXTROSE 5% NACL 0.45% 1,000 ML IV SCH ×2 (04:04→15:18)
[2020-09-25 06:55] LABS: Basophils # 0.1 10*3/uL (0.0-0.2); Eosinophils # 0.4 10*3/uL (0.0-0.87); Eosinophils % 3.9 % (0.00-10.9); Hematocrit 42.8 VOL% (42.0-52.0); Hemoglobin 14.6 GM/DL (14.0-18.0); Immature Granulocytes % 0.2 %; Immature Granulocytes Absolute 0.02 #; Lymphocytes % 53.9 % (21.2-54.2); Mean Corpuscular HGB Conc 34.1 GM/DL (32-36); Mean Corpuscular Volume 102.4 FL (87-102); Mean Platelet Volume 12.3 FL (9.6-12.0); Platelet Count 233 T/CUMM (130-400); Red Blood Count 4.18 MC/CUMM (3.8-5.5); Red Cell Distribution Width 14.5 % (9.3-17.3); White Blood Count 9.3 T/CUMM (4-12)
[2020-09-25 07:18] LABS: Albumin 2.6 G/DL (3.4-5.0); Bilirubin,Total 1.5 MG/DL (0.2-1.0); Calcium 8.4 MG/DL (8.5-10.1); Osmolality,Calculated 275.4 MOS/KG (273-304); Potassium 3.6 MMOL/L (3.5-5.1); Total Protein 7.2 G/DL (6.4-8.3)
[2020-09-25 07:58] LABS: Eosinophils 5 % (0-10); Lymphocytes 41 % (20-55); Segmented Neutrophils 35 % (50-85); Total Cells Counted 100
[2020-09-25 08:03] LABS: Hypochromasia 1+; Target Cells Few
[2020-09-25 08:04] LABS: Atypical Lymphocytes 1+
[2020-09-25 08:06] LABS: Platelet Estimate Normal; Smudge Cells Few
[2020-09-25] MEDS: LIDOCAINE 5% PATCH TRANSDERM SCH (12:35)
[2020-09-26] MEDS: HYDROmorphone 2 MG/1 ML VIAL IV PRN ×3 (02:14→19:45)
[2020-09-26] MEDS: CIPROFLOXACIN INJ 400 MG in PREMIX 1 EACH IV SCH ×2 (02:15→23:33)
[2020-09-26] MEDS: DEXTROSE 5% NACL 0.45% 1,000 ML IV SCH ×2 (05:50→19:25)
[2020-09-26] MEDS: LIDOCAINE 5% PATCH TRANSDERM SCH (09:52)
[2020-09-27] MEDS: HYDROmorphone 2 MG/1 ML VIAL IV PRN ×4 (00:30→20:12)
[2020-09-27 05:21] LABS: Basophils # 0.1 10*3/uL (0.0-0.2); Basophils % 1.3 % (0.0-0.8); Eosinophils # 0.4 10*3/uL (0.0-0.87); Eosinophils % 4.6 % (0.00-10.9); Hematocrit 43.7 VOL% (42.0-52.0); Hemoglobin 14.9 GM/DL (14.0-18.0); Lymphocytes % 59.1 % (21.2-54.2); Mean Corpuscular HGB Conc 34.1 GM/DL (32-36); Mean Corpuscular Volume 102.8 FL (87-102); Mean Platelet Volume 11.4 FL (9.6-12.0); Monocytes % 16.2 % (1.7-12.7); Neutrophils % 18.8 % (38.7-73.9); Platelet Count 194 T/CUMM (130-400); Red Blood Count 4.25 MC/CUMM (3.8-5.5); Red Cell Distribution Width 14.4 % (9.3-17.3); White Blood Count 8.4 T/CUMM (4-12)
[2020-09-27 05:42] LABS: Calcium 8.8 MG/DL (8.5-10.1); Osmolality,Calculated 276.5 MOS/KG (273-304); Potassium 4.1 MMOL/L (3.5-5.1)
[2020-09-27 05:51] LABS: Band Neutrophils 4 % (0-10); Eosinophils 5 % (0-10); Lymphocytes 57 % (20-55); Platelet Estimate Normal; Segmented Neutrophils 20 % (50-85); Total Cells Counted 100
[2020-09-27 05:52] LABS: Anisocytosis Slight; Atypical Lymphocytes Few; Macrocytosis 1+
[2020-09-27] MEDS: CIPROFLOXACIN INJ 400 MG in PREMIX 1 EACH IV SCH ×2 (09:05→14:22)
[2020-09-27] MEDS: LIDOCAINE 5% PATCH TRANSDERM SCH (09:05)
[2020-09-27] MEDS: DEXTROSE 5% NACL 0.45% 1,000 ML IV SCH (09:08)
[2020-09-28] MEDS: DEXTROSE 5% NACL 0.45% 1,000 ML IV SCH ×3 (01:38→16:00)
[2020-09-28] MEDS: HYDROmorphone 2 MG/1 ML VIAL IV PRN ×2 (01:41→08:29)
[2020-09-28 04:31] LABS: Basophils # 0.1 10*3/uL (0.0-0.2); Basophils % 1.3 % (0.0-0.8); Eosinophils # 0.5 10*3/uL (0.0-0.87); Eosinophils % 5.1 % (0.00-10.9); Hematocrit 43.9 VOL% (42.0-52.0); Immature Granulocytes % 0.1 %; Immature Granulocytes Absolute 0.01 #; Lymphocytes # 5.5 10*3/uL (1.4-4.0); Mean Corpuscular HGB Conc 34.2 GM/DL (32-36); Mean Corpuscular Volume 103.1 FL (87-102); Mean Platelet Volume 11.7 FL (9.6-12.0); Neutrophils % 15.5 % (38.7-73.9); Platelet Count 188 T/CUMM (130-400); Red Blood Count 4.26 MC/CUMM (3.8-5.5); Red Cell Distribution Width 14.4 % (9.3-17.3); White Blood Count 9.2 T/CUMM (4-12)
[2020-09-28 04:49] LABS: Platelet Estimate Adequate
[2020-09-28 05:23] LABS: Albumin 2.5 G/DL (3.4-5.0); Bilirubin,Total 1.1 MG/DL (0.2-1.0); Calcium 9.3 MG/DL (8.5-10.1); Osmolality,Calculated 273.5 MOS/KG (273-304)
[2020-09-28] MEDS: LIDOCAINE 5% PATCH TRANSDERM SCH (08:28)
[2020-09-28] MEDS: CIPROFLOXACIN INJ 400 MG in PREMIX 1 EACH IV SCH ×2 (08:29→21:36)
[2020-09-29] MEDS: DEXTROSE 5% NACL 0.45% 1,000 ML IV SCH ×2 (05:48)
[2020-09-29 06:47] LABS: Basophils # 0.1 10*3/uL (0.0-0.2); Basophils % 1.4 % (0.0-0.8); Eosinophils # 0.4 10*3/uL (0.0-0.87); Eosinophils % 4.7 % (0.00-10.9); Hematocrit 43.9 VOL% (42.0-52.0); Hemoglobin 14.6 GM/DL (14.0-18.0); Immature Granulocytes % 0.1 %; Immature Granulocytes Absolute 0.01 #; Lymphocytes # 4.3 10*3/uL (1.4-4.0); Lymphocytes % 56.4 % (21.2-54.2); Mean Corpuscular HGB Conc 33.3 GM/DL (32-36); Mean Platelet Volume 12.2 FL (9.6-12.0); Monocytes % 20.8 % (1.7-12.7); Neutrophils % 16.6 % (38.7-73.9); Platelet Count 183 T/CUMM (130-400); Red Blood Count 4.18 MC/CUMM (3.8-5.5); Red Cell Distribution Width 14.6 % (9.3-17.3); White Blood Count 7.6 T/CUMM (4-12)
[2020-09-29 07:06] LABS: Albumin 2.5 G/DL (3.4-5.0); Bilirubin,Total 1.1 MG/DL (0.2-1.0); Calcium 9.1 MG/DL (8.5-10.1); Osmolality,Calculated 274.5 MOS/KG (273-304); Potassium 4.4 MMOL/L (3.5-5.1)
[2020-09-29 07:09] LABS: Atypical Lymphocytes Few; Eosinophils 8 % (0-10); Lymphocytes 61 % (20-55); Platelet Estimate Adequate; Segmented Neutrophils 14 % (50-85); Total Cells Counted 100
[2020-09-29] MEDS: CIPROFLOXACIN INJ 400 MG in PREMIX 1 EACH IV SCH (08:23)
[2020-09-29] MEDS: LIDOCAINE 5% PATCH TRANSDERM SCH (08:23)
[2020-09-29 12:33] VITALS: BP 126/76
== END 2020-09-29 16:50 | disposition home or self-care (01) | DRG 720 ==
LOC: N.ED 00:39 → N.EDINP 00:39 → SUATTDRO 04:34 → N.5E 05:55 → SUATTDRO 16:01
PROVIDERS: ADMIT Internal Medicine; ATTEND Emergency Medicine

== ENCOUNTER 2020-10-06 12:40 | Observation (INO) ==
[2020-10-06 13:49] LABS: Basophils % 0.1 % (0.0-0.8); Hematocrit 40.5 VOL% (42.0-52.0); Hemoglobin 13.8 GM/DL (14.0-18.0); Immature Granulocytes % 0.6 %; Immature Granulocytes Absolute 0.11 #; Lymphocytes # 2.6 10*3/uL (1.4-4.0); Lymphocytes % 12.9 % (21.2-54.2); Mean Corpuscular HGB Conc 34.1 GM/DL (32-36); Mean Corpuscular Volume 102.5 FL (87-102); Mean Platelet Volume 11.6 FL (9.6-12.0); Monocytes % 4.9 % (1.7-12.7); Neutrophils % 81.5 % (38.7-73.9); Platelet Count 261 T/CUMM (130-400); Red Blood Count 3.95 MC/CUMM (3.8-5.5); White Blood Count 19.8 T/CUMM (4-12)
[2020-10-06 13:58] LABS: INR 1.1; PT Patient Result 11.6 SECS (9.8-11.9)
[2020-10-06 14:12] LABS: Albumin 2.9 G/DL (3.4-5.0); Bilirubin,Total 0.9 MG/DL (0.2-1.0); Calcium 9.2 MG/DL (8.5-10.1); Osmolality,Calculated 282.3 MOS/KG (273-304); Potassium 4.1 MMOL/L (3.5-5.1); Thyroid Stimulating Hormone 0.581 uIU/ml (0.358-3.74); Total Protein 7.8 G/DL (6.4-8.3)
[2020-10-06] MEDS ORDERED: SODIUM CHLORIDE 0.9% 1,000 ML IV STA ×2 (14:13→14:14)
[2020-10-06] MEDS ORDERED: CEFEPIME 1,000 MG in SODIUM CHLORIDE 0.9% 100 ML IV STA (14:13)
[2020-10-06 14:47] LABS: Bilirubin,Urine Negative (Negative); Blood, Urine Small mg/dL (Negative); Glucose,Urine (UA) Negative (Negative); Ketones,Urine Negative (Negative); Nitrite,Urine Negative (Negative); Protein,Urine Negative; RBC,Urine <1 /HPF (0-4); Urine Appearance CLEAR (Clear); Urine Color Straw (Yellow); Urine Specific Gravity 1.002 (1.001-1.035); Urine Urobilinogen < 2.0 EU/DL (0.2-1.0); WBC,Urine <1 /HPF (0-6)
[2020-10-06 14:50] LABS: Barbiturates Screen,Urine Negative (Negative); Benzodiazepines Screen,Urine Negative (Negative); Cannabinoid Screen,Urine Negative (Negative); Opiate Screen,Urine Negative (Negative); Phencyclidine Screen,Urine Negative (Negative)
[2020-10-06] MEDS ORDERED: ACETAMINOPHEN 325 MG TABLET PO PRN (16:10)
[2020-10-06] MEDS ORDERED: DEXTROSE 50% 25 GM/50 ML VIAL IV PRN (16:12)
[2020-10-06] MEDS ORDERED: GLUCAGON 1 MG VIAL IM PRN (16:12)
[2020-10-06] MEDS: SODIUM CHLORIDE 0.9% 1,000 ML IV SCH ×2 (18:21→20:14)
[2020-10-06] MEDS: LACTULOSE 20 GM/30 ML UDCUP PO SCH (18:30)
[2020-10-06] MEDS ORDERED: LORazepam 2 MG/1 ML VIAL IV PRN (20:10)
[2020-10-06] MEDS: PIPERACILLIN/TAZOBACTAM 3,375 MG in SODIUM CHLORIDE 0.9% 100 ML IV SCH (20:15)
[2020-10-06] MEDS ORDERED: VANCOMYCIN INJ 1,750 MG in SODIUM CHLORIDE 0.9% 500 ML IV SCH (21:00)
[2020-10-06] MEDS ORDERED: ENOXAPARIN 40 MG/0.4 ML SYRINGE SUBCUT SCH (21:00)
[2020-10-07] MEDS: LACTULOSE 20 GM/30 ML UDCUP PO SCH ×2 (01:29→09:05)
[2020-10-07] MEDS: PIPERACILLIN/TAZOBACTAM 3,375 MG in SODIUM CHLORIDE 0.9% 100 ML IV SCH (04:04)
[2020-10-07] MEDS: SODIUM CHLORIDE 0.9% 1,000 ML IV SCH ×2 (05:10→09:05)
[2020-10-07 07:41] LABS: Basophils % 0.1 % (0.0-0.8); Hematocrit 34.6 VOL% (42.0-52.0); Hemoglobin 11.7 GM/DL (14.0-18.0); Immature Granulocytes % 0.7 %; Immature Granulocytes Absolute 0.17 #; Lymphocytes # 3.6 10*3/uL (1.4-4.0); Lymphocytes % 14.5 % (21.2-54.2); Mean Corpuscular HGB Conc 33.8 GM/DL (32-36); Mean Corpuscular Volume 104.2 FL (87-102); Mean Platelet Volume 11.9 FL (9.6-12.0); Monocytes % 8.7 % (1.7-12.7); Platelet Count 238 T/CUMM (130-400); Red Blood Count 3.32 MC/CUMM (3.8-5.5); Red Cell Distribution Width 15.4 % (9.3-17.3); White Blood Count 24.8 T/CUMM (4-12)
[2020-10-07 07:56] LABS: Albumin 2.4 G/DL (3.4-5.0); Bilirubin,Direct 0.25 MG/DL (0.0-0.20); Bilirubin,Indirect 0.6 MG/DL (0.0-1.0); Bilirubin,Total 0.8 MG/DL (0.2-1.0); Calcium 8.1 MG/DL (8.5-10.1); Potassium 4.2 MMOL/L (3.5-5.1); Total Protein 6.2 G/DL (6.4-8.3)
[2020-10-07 08:00] VITALS: BP 127/69
[2020-10-07 08:45] LABS: Band Neutrophils 14 % (0-10); Lymphocytes 11 % (20-55); Platelet Estimate Normal; Segmented Neutrophils 65 % (50-85); Total Cells Counted 100
[2020-10-07 08:46] LABS: Anisocytosis 1+; Macrocytosis 2+; Target Cells Few
[2020-10-07] MEDS ORDERED: PANTOPRAZOLE 40 MG TABLET PO SCH (09:00)
[2020-10-07 10:42] LABS: Basophils % 0.1 % (0.0-0.8); Hematocrit 34.3 VOL% (42.0-52.0); Hemoglobin 11.9 GM/DL (14.0-18.0); Immature Granulocytes % 0.5 %; Immature Granulocytes Absolute 0.11 #; Lymphocytes # 3.3 10*3/uL (1.4-4.0); Lymphocytes % 13.8 % (21.2-54.2); Mean Corpuscular HGB Conc 34.7 GM/DL (32-36); Mean Corpuscular Volume 101.5 FL (87-102); Mean Platelet Volume 11.3 FL (9.6-12.0); Neutrophils % 78.6 % (38.7-73.9); Platelet Count 229 T/CUMM (130-400); Red Blood Count 3.38 MC/CUMM (3.8-5.5); Red Cell Distribution Width 15.3 % (9.3-17.3)
[2020-10-07] MEDS ORDERED: chlordiazePOXIDE 25 MG CAPSULE PO PRN (11:19)
[2020-10-07 11:21] LABS: Anisocytosis 2+; Band Neutrophils 5 % (0-10); Lymphocytes 13 % (20-55); Macrocytosis 2+; Platelet Estimate Normal; Segmented Neutrophils 74 % (50-85); Target Cells Few; Total Cells Counted 100
[2020-10-07] MEDS ORDERED: THIAMINE INJ 100 MG, FOLIC ACID INJ 1 MG, MULTIVITAMIN INJ 10 ML in SODIUM CHLORIDE 0.9... IV ONE (12:00)
== END 2020-10-07 12:02 | disposition left against medical advice (07) ==
LOC: EDUNIT# → EDBD → N.ED 12:40 → INTOOBSV 16:12 → N.EDINP 16:12 → N.5E 18:08
PROVIDERS: ADMIT Internal Medicine; ATTEND Internal Medicine

== ENCOUNTER 2020-11-06 05:58 | Observation (INO) ==
[2020-11-06] MEDS ORDERED: GLUCAGON 1 MG VIAL IM PRN (12:30)
[2020-11-06] MEDS ORDERED: DEXTROSE 50% 25 GM/50 ML VIAL IV PRN (12:30)
[2020-11-06 13:19] LABS: Basophils # 0.1 10*3/uL (0.0-0.2); Basophils % 1.1 % (0.0-0.8); Eosinophils # 0.2 10*3/uL (0.0-0.87); Eosinophils % 2.8 % (0.00-10.9); Hematocrit 41.7 VOL% (42.0-52.0); Hemoglobin 13.8 GM/DL (14.0-18.0); Immature Granulocytes % 0.2 %; Immature Granulocytes Absolute 0.01 #; Lymphocytes # 3.5 10*3/uL (1.4-4.0); Lymphocytes % 54.4 % (21.2-54.2); Mean Corpuscular HGB Conc 33.1 GM/DL (32-36); Mean Platelet Volume 12.2 FL (9.6-12.0); Monocytes % 19.7 % (1.7-12.7); Neutrophils % 21.8 % (38.7-73.9); Platelet Count 215 T/CUMM (130-400); Red Blood Count 3.97 MC/CUMM (3.8-5.5); Red Cell Distribution Width 14.7 % (9.3-17.3); White Blood Count 6.5 T/CUMM (4-12)
[2020-11-06 13:35] LABS: Calcium 8.6 MG/DL (8.5-10.1); Potassium 3.8 MMOL/L (3.5-5.1)
[2020-11-06] MEDS: MORPHINE 4 MG/1 ML VIAL IV PRN ×3 (13:40→21:58)
[2020-11-06] MEDS: ONDANSETRON 4 MG/2 ML VIAL IV PRN ×3 (13:40→21:58)
[2020-11-06 13:44] LABS: Eosinophils 5 % (0-10); Lymphocytes 47 % (20-55); Platelet Estimate Adequate; Segmented Neutrophils 35 % (50-85); Total Cells Counted 100
[2020-11-06 13:45] LABS: Atypical Lymphocytes Few; Hypochromasia Slight
[2020-11-06] MEDS: SODIUM CHLORIDE 0.9% 1,000 ML IV SCH (16:50)
[2020-11-06 19:34] LABS: Hematocrit 38.5 VOL% (42.0-52.0); Hemoglobin 13.1 GM/DL (14.0-18.0)
[2020-11-07 01:21] LABS: Hemoglobin 13.7 GM/DL (14.0-18.0)
[2020-11-07] MEDS: MORPHINE 4 MG/1 ML VIAL IV PRN ×5 (02:18→23:05)
[2020-11-07] MEDS: ONDANSETRON 4 MG/2 ML VIAL IV PRN ×5 (02:18→23:06)
[2020-11-07 05:49] LABS: Basophils # 0.1 10*3/uL (0.0-0.2); Basophils % 1.1 % (0.0-0.8); Eosinophils # 0.2 10*3/uL (0.0-0.87); Eosinophils % 2.8 % (0.00-10.9); Hemoglobin 13.2 GM/DL (14.0-18.0); Immature Granulocytes % 0.1 %; Immature Granulocytes Absolute 0.01 #; Lymphocytes # 3.4 10*3/uL (1.4-4.0); Lymphocytes % 41.6 % (21.2-54.2); Mean Corpuscular HGB Conc 33.8 GM/DL (32-36); Mean Corpuscular Volume 105.4 FL (87-102); Mean Platelet Volume 12.9 FL (9.6-12.0); Monocytes % 21.4 % (1.7-12.7); Platelet Count 200 T/CUMM (130-400); Red Cell Distribution Width 14.7 % (9.3-17.3); White Blood Count 8.3 T/CUMM (4-12)
[2020-11-07 06:03] LABS: Osmolality,Calculated 279.1 MOS/KG (273-304)
[2020-11-07 06:30] LABS: Atypical Lymphocytes Few; Eosinophils 7 % (0-10); Lymphocytes 32 % (20-55); Platelet Estimate Adequate; Segmented Neutrophils 48 % (50-85); Total Cells Counted 100
[2020-11-07] MEDS: LACTATED RINGERS 1,000 ML IV SCH (12:10)
[2020-11-07] MEDS ORDERED: propofoL 200 MG/20 ML VIAL IV ONE ×2 (13:05→13:07)
[2020-11-07] MEDS ORDERED: LIDOCAINE 2% 5 ML VIAL ONE (13:05)
[2020-11-08] MEDS: MORPHINE 4 MG/1 ML VIAL IV PRN ×2 (03:15→07:07)
[2020-11-08] MEDS: ONDANSETRON 4 MG/2 ML VIAL IV PRN ×2 (03:16→07:07)
[2020-11-08] MEDS: SODIUM CHLORIDE 0.9% 1,000 ML IV SCH ×2 (04:46→05:49)
[2020-11-08 06:22] LABS: Basophils # 0.1 10*3/uL (0.0-0.2); Basophils % 1.3 % (0.0-0.8); Eosinophils # 0.3 10*3/uL (0.0-0.87); Eosinophils % 4.7 % (0.00-10.9); Hemoglobin 13.5 GM/DL (14.0-18.0); Immature Granulocytes % 0.1 %; Immature Granulocytes Absolute 0.01 #; Lymphocytes # 3.9 10*3/uL (1.4-4.0); Lymphocytes % 57.3 % (21.2-54.2); Mean Corpuscular HGB Conc 33.8 GM/DL (32-36); Mean Corpuscular Volume 105.5 FL (87-102); Mean Platelet Volume 13.2 FL (9.6-12.0); Neutrophils % 15.6 % (38.7-73.9); Platelet Count 198 T/CUMM (130-400); Red Blood Count 3.79 MC/CUMM (3.8-5.5); Red Cell Distribution Width 14.6 % (9.3-17.3); White Blood Count 6.9 T/CUMM (4-12)
[2020-11-08 06:31] LABS: Calcium 8.7 MG/DL (8.5-10.1); Osmolality,Calculated 273.5 MOS/KG (273-304); Potassium 3.8 MMOL/L (3.5-5.1)
[2020-11-08 06:42] LABS: Atypical Lymphocytes Few; Eosinophils 10 % (0-10); Lymphocytes 60 % (20-55); Segmented Neutrophils 18 % (50-85); Total Cells Counted 100
[2020-11-08 06:43] LABS: Hypochromasia Slight; Microcytosis 1+
[2020-11-08 06:45] LABS: Giant Platelets Few
[2020-11-08 07:07] VITALS: BP 119/73
[2020-11-08] MEDS: LACTATED RINGERS 1,000 ML IV SCH (07:37)
== END 2020-11-08 10:48 | disposition home or self-care (01) ==
LOC: N.3E → SUATTDRO 11:03 → INTOOBSV 11:03 → OBSVTOIN 11:03
PROVIDERS: ADMIT Internal Medicine; ATTEND Internal Medicine Geriatric Medicine

== ENCOUNTER 2022-01-18 00:23 | Inpatient (IN) ==
[2022-01-18] MEDS ORDERED: PANTOPRAZOLE 40 MG VIAL IV STA (03:39)
[2022-01-18] MEDS ORDERED: ONDANSETRON 4 MG/2 ML VIAL IV STA (03:39)
[2022-01-18] MEDS ORDERED: HYDROmorphone 1 MG/1 ML SYRINGE IV STA (03:39)
[2022-01-18] MEDS ORDERED: SODIUM CHLORIDE 0.9% 1,000 ML IV STA (03:39)
[2022-01-18 03:55] LABS: Basophils # 0.1 10*3/uL (0.0-0.2); Basophils % 0.9 % (0.0-0.8); Eosinophils # 0.4 10*3/uL (0.0-0.87); Eosinophils % 3.9 % (0.00-10.9); Hematocrit 42.7 VOL% (42.0-52.0); Hemoglobin 14.7 GM/DL (14.0-18.0); Immature Granulocytes % 0.2 %; Immature Granulocytes Absolute 0.02 #; Lymphocytes # 3.6 10*3/uL (1.4-4.0); Lymphocytes % 36.3 % (21.2-54.2); Mean Corpuscular HGB Conc 34.4 GM/DL (32-36); Mean Corpuscular Volume 101.4 FL (87-102); Mean Platelet Volume 10.7 FL (9.6-12.0); Monocytes # 1.6 10*3/uL (0.11-0.8); Monocytes % 16.3 % (1.7-12.7); Neutrophils % 42.4 % (38.7-73.9); Platelet Count 273 T/CUMM (130-400); Red Blood Count 4.21 MC/CUMM (3.8-5.5); Red Cell Distribution Width 13.9 % (9.3-17.3); White Blood Count 9.8 T/CUMM (4-12)
[2022-01-18 04:13] LABS: Eosinophils 4 % (0-10); Lymphocytes 35 % (20-55); Platelet Estimate Adequate; Total Cells Counted 100
[2022-01-18 04:14] LABS: Atypical Lymphocytes Few
[2022-01-18 04:29] LABS: Alanine Aminotransferase 61 U/L (16-61); Albumin 3.1 G/DL (3.4-5.0); Alkaline Phosphatase 274 U/L (45-117); Amylase 60 U/L (25-115); Aspartate Amino Transferase 172 U/L (0-37); Blood Urea Nitrogen 9 MG/DL (7-18); Calcium 8.7 MG/DL (8.5-10.1); Carbon Dioxide 24 MMOL/L (21-32); Chloride 112 MMOL/L (98-107); Glucose 116 MG/DL (74-106); Osmolality,Calculated 280.3 MOS/KG (273-304); Potassium 3.6 MMOL/L (3.5-5.1); Sodium 141 MMOL/L (136-145); Total Protein 7.4 G/DL (6.4-8.2)
[2022-01-18] MEDS ORDERED: SODIUM CHLORIDE 0.9% 2,350 ML IV ONE (04:53)
[2022-01-18] MEDS ORDERED: SODIUM CHLORIDE 0.9% 3,000 ML IV ONE (04:53)
[2022-01-18] MEDS ORDERED: HYDROmorphone 1 MG/1 ML SYRINGE IV ONE (04:55)
[2022-01-18 04:56] LABS: Mucus,Urine Many /LPF (Occasional); RBC,Urine 80 /HPF (0-4)
[2022-01-18 04:57] LABS: Bilirubin,Urine Negative (Negative); Blood, Urine Negative (Negative); Glucose,Urine (UA) Negative (Negative); Ketones,Urine Negative (Negative); Nitrite,Urine Negative (Negative); Protein,Urine Negative (Negative); Urine Appearance Clear (Clear); Urine Color Yellow (Yellow); Urine Specific Gravity 1.025 (1.001-1.035); Urine pH 6.5 (4.5-8.0)
[2022-01-18] MEDS ORDERED: PIPERACILLIN/TAZOBACTAM 3,375 MG in SODIUM CHLORIDE 0.9% 100 ML IV SCH (05:00)
[2022-01-18] MEDS ORDERED: PROMETHAZINE 25 MG/1 ML VIAL IV PRN (05:34)
[2022-01-18] MEDS ORDERED: ONDANSETRON 4 MG/2 ML VIAL IV PRN (05:34)
[2022-01-18] MEDS ORDERED: DEXTROSE 10% 250 ML BAG IV PRN (05:34)
[2022-01-18] MEDS ORDERED: GLUCAGON 1 MG VIAL IM PRN (05:34)
[2022-01-18] MEDS ORDERED: ACETAMINOPHEN 325 MG TABLET PO PRN (05:34)
[2022-01-18] MEDS ORDERED: PROMETHAZINE INJ 25 MG in SODIUM CHLORIDE 0.9% 50 ML IV PRN (05:43)
[2022-01-18] MEDS: HYDROmorphone 1 MG/1 ML SYRINGE IV PRN ×6 (06:17→23:08)
[2022-01-18] MEDS: LACTATED RINGERS 1,000 ML IV SCH ×2 (06:17→21:14)
[2022-01-18] MEDS ORDERED: MORPHINE 2 MG/1 ML SYRINGE IV STA (07:08)
[2022-01-18] MEDS ORDERED: PROMETHAZINE 25 MG/1 ML VIAL ONE (09:20)
[2022-01-18] MEDS: PIPERACILLIN/TAZOBACTAM 3,375 MG in SODIUM CHLORIDE 0.9% 100 ML IV SCH ×2 (13:40→20:27)
[2022-01-18] MEDS: PANTOPRAZOLE 40 MG VIAL IV SCH (20:26)
[2022-01-18] MEDS ORDERED: ENOXAPARIN 40 MG/0.4 ML SYRINGE SUBCUT SCH (21:00)
[2022-01-19] MEDS: HYDROmorphone 1 MG/1 ML SYRINGE IV PRN ×8 (02:10→23:04)
[2022-01-19] MEDS: PIPERACILLIN/TAZOBACTAM 3,375 MG in SODIUM CHLORIDE 0.9% 100 ML IV SCH (05:06)
[2022-01-19 05:45] LABS: Calcium 7.9 MG/DL (8.5-10.1); Osmolality,Calculated 276.4 MOS/KG (273-304); Potassium 4.1 MMOL/L (3.5-5.1)
[2022-01-19 05:49] LABS: Albumin 2.6 G/DL (3.4-5.0); Bilirubin,Total 1.8 MG/DL (0.20-1.00); Calcium 7.8 MG/DL (8.5-10.1); Osmolality,Calculated 274.5 MOS/KG (273-304); Potassium 3.8 MMOL/L (3.5-5.1); Total Protein 5.9 G/DL (6.4-8.2)
[2022-01-19 05:51] LABS: Basophils # 0.2 10*3/uL (0.0-0.2); Basophils % 1.7 % (0.0-0.8); Eosinophils # 1.1 10*3/uL (0.0-0.87); Eosinophils % 12.2 % (0.00-10.9); Hematocrit 36.1 VOL% (42.0-52.0); Immature Granulocytes % 0.2 %; Immature Granulocytes Absolute 0.02 #; Lymphocytes # 3.8 10*3/uL (1.4-4.0); Lymphocytes % 40.5 % (21.2-54.2); Mean Corpuscular HGB Conc 33.5 GM/DL (32-36); Mean Platelet Volume 11.6 FL (9.6-12.0); Monocytes # 1.6 10*3/uL (0.11-0.8); Monocytes % 16.6 % (1.7-12.7); Neutrophils % 28.8 % (38.7-73.9); Platelet Count 234 T/CUMM (130-400); Red Blood Count 3.47 MC/CUMM (3.8-5.5); White Blood Count 9.4 T/CUMM (4-12)
[2022-01-19 06:07] LABS: Hemoglobin 12.1 GM/DL (14.0-18.0)
[2022-01-19 06:14] LABS: Eosinophils 12 % (0-10); Lymphocytes 30 % (20-55); Platelet Estimate Normal; Total Cells Counted 100
[2022-01-19] MEDS: PANTOPRAZOLE 40 MG VIAL IV SCH ×2 (08:32→20:05)
[2022-01-19] MEDS: LACTATED RINGERS 1,000 ML IV SCH ×2 (16:52→19:07)
[2022-01-20] MEDS: HYDROmorphone 1 MG/1 ML SYRINGE IV PRN ×8 (02:02→23:04)
[2022-01-20] MEDS: LACTATED RINGERS 1,000 ML IV SCH ×4 (02:05→21:26)
[2022-01-20 05:40] LABS: Basophils # 0.2 10*3/uL (0.0-0.2); Basophils % 1.6 % (0.0-0.8); Eosinophils # 1.3 10*3/uL (0.0-0.87); Eosinophils % 14.5 % (0.00-10.9); Hematocrit 35.4 VOL% (42.0-52.0); Immature Granulocytes % 0.2 %; Immature Granulocytes Absolute 0.02 #; Lymphocytes # 3.8 10*3/uL (1.4-4.0); Mean Corpuscular HGB Conc 33.9 GM/DL (32-36); Mean Corpuscular Volume 102.9 FL (87-102); Mean Platelet Volume 11.3 FL (9.6-12.0); Monocytes # 1.6 10*3/uL (0.11-0.8); Monocytes % 17.7 % (1.7-12.7); Platelet Count 234 T/CUMM (130-400); Red Blood Count 3.44 MC/CUMM (3.8-5.5); Red Cell Distribution Width 13.9 % (9.3-17.3); White Blood Count 9.1 T/CUMM (4-12)
[2022-01-20 05:57] LABS: Osmolality,Calculated 275.4 MOS/KG (273-304); Potassium 3.5 MMOL/L (3.5-5.1)
[2022-01-20 05:59] LABS: INR 1.3; PT Patient Result 14.3 SECS (10.5-12.0); Partial Thromboplastin Time 32.5 SECS (23.8-32.1)
[2022-01-20 06:11] LABS: Eosinophils 19 % (0-10); Lymphocytes 38 % (20-55); Total Cells Counted 100
[2022-01-20 06:12] LABS: Macrocytosis 1+; Target Cells Slight
[2022-01-20 06:13] LABS: Howell-Jolly Bodies Slight; Platelet Estimate Normal
[2022-01-20] MEDS: PANTOPRAZOLE 40 MG VIAL IV SCH ×2 (08:02→20:12)
[2022-01-21] MEDS: HYDROmorphone 1 MG/1 ML SYRINGE IV PRN ×7 (02:02→22:49)
[2022-01-21 06:29] LABS: Basophils # 0.1 10*3/uL (0.0-0.2); Basophils % 1.4 % (0.0-0.8); Eosinophils # 1.1 10*3/uL (0.0-0.87); Eosinophils % 10.7 % (0.00-10.9); Hematocrit 37.5 VOL% (42.0-52.0); Hemoglobin 12.7 GM/DL (14.0-18.0); Immature Granulocytes % 0.2 %; Immature Granulocytes Absolute 0.02 #; Lymphocytes # 4.4 10*3/uL (1.4-4.0); Lymphocytes % 43.4 % (21.2-54.2); Mean Corpuscular HGB Conc 33.9 GM/DL (32-36); Mean Corpuscular Volume 103.6 FL (87-102); Mean Platelet Volume 11.7 FL (9.6-12.0); Monocytes # 1.7 10*3/uL (0.11-0.8); Monocytes % 16.9 % (1.7-12.7); Neutrophils % 27.4 % (38.7-73.9); Platelet Count 264 T/CUMM (130-400); Red Blood Count 3.62 MC/CUMM (3.8-5.5); Red Cell Distribution Width 14.2 % (9.3-17.3); White Blood Count 10.2 T/CUMM (4-12)
[2022-01-21 06:52] LABS: Eosinophils 16 % (0-10); Lymphocytes 33 % (20-55); Platelet Estimate Adequate; Total Cells Counted 100
[2022-01-21] MEDS: PANTOPRAZOLE 40 MG VIAL IV SCH (09:09)
[2022-01-21] MEDS ORDERED: LACTATED RINGERS 1,000 ML IV SCH (13:15)
[2022-01-21] MEDS ORDERED: LIDOCAINE 2% 5 ML VIAL ONE (14:19)
[2022-01-21] MEDS ORDERED: propofoL 200 MG/20 ML VIAL IV ONE (14:19)
[2022-01-21 15:39] LABS: % Iron Saturation 18.5 % (18-50)
[2022-01-21 15:59] LABS: Folate 9.76 NG/ML (5.38-24.0)
[2022-01-21] MEDS: OMEPRAZOLE ODT 20 MG TABLET PO SCH (21:14)
[2022-01-21] MEDS: AMOXICILLIN 500 MG CAPSULE PO SCH (21:14)
[2022-01-21] MEDS: CLARITHROMYCIN 500 MG TABLET PO SCH (21:15)
[2022-01-21] MEDS: LACTATED RINGERS 1,000 ML IV SCH ×2 (23:17→23:18)
[2022-01-22] MEDS: HYDROmorphone 1 MG/1 ML SYRINGE IV PRN (01:57)
[2022-01-22 04:52] LABS: Basophils # 0.1 10*3/uL (0.0-0.2); Basophils % 1.2 % (0.0-0.8); Eosinophils # 0.9 10*3/uL (0.0-0.87); Eosinophils % 10.4 % (0.00-10.9); Hemoglobin 12.8 GM/DL (14.0-18.0); Immature Granulocytes % 0.1 %; Immature Granulocytes Absolute 0.01 #; Lymphocytes # 3.2 10*3/uL (1.4-4.0); Lymphocytes % 37.2 % (21.2-54.2); Mean Corpuscular HGB Conc 33.7 GM/DL (32-36); Mean Corpuscular Volume 103.3 FL (87-102); Mean Platelet Volume 11.1 FL (9.6-12.0); Monocytes # 1.7 10*3/uL (0.11-0.8); Monocytes % 19.1 % (1.7-12.7); Platelet Count 255 T/CUMM (130-400); Red Blood Count 3.68 MC/CUMM (3.8-5.5); Red Cell Distribution Width 14.3 % (9.3-17.3); White Blood Count 8.7 T/CUMM (4-12)
[2022-01-22 05:14] LABS: Eosinophils 15 % (0-10); Lymphocytes 29 % (20-55); Platelet Estimate Adequate; Total Cells Counted 100
[2022-01-22 05:16] LABS: Albumin 2.7 G/DL (3.4-5.0); Bilirubin,Total 1.3 MG/DL (0.20-1.00); Calcium 8.6 MG/DL (8.5-10.1); Osmolality,Calculated 271.7 MOS/KG (273-304); Potassium 4.2 MMOL/L (3.5-5.1); Total Protein 6.2 G/DL (6.4-8.2)
[2022-01-22] MEDS: AMOXICILLIN 500 MG CAPSULE PO SCH (09:32)
[2022-01-22] MEDS: CLARITHROMYCIN 500 MG TABLET PO SCH (09:32)
[2022-01-22] MEDS: OMEPRAZOLE ODT 20 MG TABLET PO SCH (09:32)
[2022-01-22 11:50] LABS: Barbiturates Screen,Urine Negative (Negative); Benzodiazepines Screen,Urine Negative (Negative); Cannabinoid Screen,Urine Negative (Negative); Opiate Screen,Urine Positive (Negative); Phencyclidine Screen,Urine Negative (Negative)
[2022-01-22 12:00] VITALS: BP 130/86
== END 2022-01-22 15:40 | disposition home health service (06) | DRG 243 ==
LOC: SUATTDRO → N.EDINP 00:23 → N.ED 00:23 → SUATTDRO 05:34 → N.EDINP 12:31 → N.3E 12:47 → SUATTDRO 01-19 13:53
PROVIDERS: ADMIT Hospitalist; ATTEND Internal Medicine